=== PATIENT | female | born 1975 | race Caucasian/White ===

== ENCOUNTER → 2019-08-09 16:14 | Outpatient (CLI) | payer MEDICAID, SELFPAY ==
--- NOTE | 2019-08-09 16:43 | CT_ITS ---
STUDY: CT MAXILLOFACIAL SINUSES REASON FOR EXAM: Female, 43 years old. An ostomy up. Previous sinus surgery. RADIATION DOSAGE (If Supplied By Facility): CTDIvol = ( 33.06 ) mGy, DLP = ( 784.26 ) mGycm TECHNIQUE: The patient was scanned in a multi detector CT scanner. High resolution axial imaging was performed without the administration of intravenous contrast material. Sagittal and coronal images were reconstructed. Individualized dose optimization techniques were used for this CT. COMPARISON: None. FINDINGS: FRONTAL SINUSES: Left almost completely opacified secondary to mucosal thickening. Left frontal drainage pathway markedly narrowed by mucosal thickening. The right frontal sinus and right frontal sinus drainage pathway are both patent. ETHMOIDAL SINUSES: Mucosal thickening opacifies about half of the bilateral anterior and posterior ethmoid air cells. MAXILLARY SINUSES: Bilaterally, there is evidence of previous maxillary sinus medial antrostomy, with truncated appearance of the bilateral uncinate processes compatible with uncinectomy. Left: Moderate polypoid mucosal thickening left maxillary sinus with no air-fluid level on the left. The left maxillary sinus antrostomy is markedly narrowed due to mucosal thickening. Right: Moderate polypoid mucosal thickening and aerosolized secretions right maxillary sinus. The right maxillary sinus antrostomy is patent, mildly narrowed by mucosal thickening. SPHENOIDAL SINUSES: Polypoid mucosal thickening and aerosolized secretions left sphenoid sinus. Smaller in size right sphenoid sinus opacified by mucosal thickening. Bilaterally, the sphenoid-ethmoid recesses are narrowed by mucosal thickening but patent. The left hiatus semilunaris is narrowed due to mucosal thickening. The right is patent. Mild mucosal thickening of the middle and inferior bilateral nasal turbinates. The nasal septum is midline with evidence of previous septoplasty. Dehiscence versus chronic fracture of the right medial orbital wall/floor junction with orbital flat herniating through this defect. Left bony orbit is intact. Orbital contents otherwise unremarkable. Near complete opacification of the right mastoid air cells no apparent mass or obstructing lesion in the right fossa of Rosenmuller. Right middle ear, left mastoid air cells, and left middle ear patent. CT/Sinus/Facial Bone IMPRESSION: Acute on chronic pansinusitis described in detail above. 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 Near-complete opacification right mastoid air cells. Electronically Signed: Jaiden Colbert, at 23:48 EDT Tel , Service support ,
== END ==
PROVIDERS: Family Provider Nurse Practitioner Family; PCP Nurse Practitioner Family; Referring Provider Otolaryngology; Visit Provider Otolaryngology
DX: J33.9 Nasal polyp, unspecified (principal); R43.0 Anosmia
CPT/HCPCS: 70486

== ENCOUNTER 2025-10-06 11:37 | Emergency (ER) | payer SELFPAY ==
[2025-10-06 11:37] VITALS: BP 167/100; PULSE 77; RESP 16; TEMP 36.9; O2SAT 98; BMI 36.3
--- NOTE | 2025-10-06 12:13 | EX.ED.DYSGE1 ---
HPI History of Present Illness Chief Complaint: Ear Problem Narrative Narrative: Chief complaint and HPI: 50-year-old female with no significant past medical history other than allergies presents for evaluation of right ear pain. Patient states she is usually always congested due to her allergies. She states several days ago she started having right ear pain. She denies any fever, chills, cough, shortness of breath, discharge from the ear. Review of systems: See HPI Medications: As listed on the chart Allergies: As listed on the chart PFSH: Per chart Vital signs: As listed on the chart. Reviewed. Physical exam: Gen: Alert and oriented, NAD Head: Normocephalic, atraumatic Eyes: No sclera icterus, conjunctiva clear, PERRL ENT: EAC mildly swollen on the right compared to the left-no drainage or purulenc, Tympanic membrane on the right is erythematous and bulging, tympanic membrane on the left mildly erythematous, no mastoid tenderness or swelling, moist mucous membranes, posterior oropharynx unremarkable, uvula midline, tonsils not enlarged, no tonsillar exudates, no sinus tenderness. + Congestion. Neck: Trachea midline, Full ROM, No meningismus CV: RRR, no murmurs, no peripheral edema Resp: Lungs CTA BL, no w/r/c Skin: Warm, dry, no rash Psych: Cooperative, appropriate mood and affect [facility] Medical History no medical history Allergy/AdvReac Type Severity Reaction Status Date / Time Influenza Virus Vaccines Allergy Shortness Verified 10/06/25 11:39 of breath Social History Smoking Status: Never smoker EXAM Physical Exam Const Vital Signs: 10/06/25 11:37 Temperature 98.4 F Temperature Source Oral Pulse Rate 77 Respiratory Rate 16 Blood Pressure 167/100 H Blood Pressure Mean 122 Pulse Ox 98 Oxygen Delivery Method Room Air MDM MDM MDM Narrative Medical decision making narrative: 50-year-old female with no significant past medical history other than allergies presents for evaluation of right ear pain. Patient states she is usually always congested due to her allergies. She states several days ago she started having right ear pain. She denies any fever, chills, cough, shortness of breath, discharge from the ear. On presentation, vital stable other than hypertension, hypertension may be secondary to pain. Afebrile. Differential diagnosis includes but is not limited to otitis media, otitis externa, sinus congestion, sinusitis, eustachian tube dysfunction. See physical exam findings. Patient's exam is consistent with right otitis media. Her EAC on the right is mildly swollen compared to the left. May be early otitis externa as well. Patient will be treated for otitis media with amoxicillin. She is currently going to work after her visit here therefore we will give her first dose now. Will give her ofloxacin drop for possible externa. She confirmed understand the plan. Follow-up with primary care physician. Tylenol Motrin as needed for pain. Impression: 1. Right otitis media 2. Possible right otitis externa Discharge Plan Triage Chief Complaint: Ear Problem ED Provider: Frankie Del Real Dx/Rx/DC Orders Primary Care Provider: Joann Price NP Referrals: Joann Price NP, [employer] [Primary Care Provider, Family Practice] Print Language: [place]
[2025-10-06 12:35] VITALS: BP 158/89; PULSE 77; RESP 16; TEMP 36.9; O2SAT 98
--- OUTSIDE RECORDS SUMMARY | 2025-10-06 18:37 | XMS RPT_ITS | CCD ---
Author Organization [facility] Inform ion Partnership [facility] Care Team Providers Care Critical Care Clinical Nurse Specialist Name Role Phone FALTAY, MATHEW B Unavailable Unavailable FALTAY, MATHEW B Unavailable Unavailable FALTAY, MATHEW B Unavailable Unavailable BENNIE GONZALEZ Unavailable Unavailable BENNIE GONZALEZ Unavailable Unavailable BENNIE GONZALEZ Unavailable Unavailable FALTAY, MATHEW B Unavailable Unavailable FALTAY, MATHEW B Unavailable Unavailable FALTAY, MATHEW B Unavailable Unavailable BENNIE GONZALEZ Unavailable Unavailable BENNIE GONZALEZ Unavailable Unavailable BENNIE GONZALEZ Unavailable Unavailable PEDROSON [employer]ARD PANEL[employer] PLATER, JOANN Primary Care Physician LORSON [employer] PANEL[employer] PLATER, [place] Primary Care Physician ALBERT MULLINS-BEKAH, JOANN Attending Unavail able LORSON [employer]EL[employer] PLATER, [place] Primary Care Unavail able LORSON [employer] SE[employer]ARD PANELS PLATER, [place] Primary Care Unavail able LORSON [employer] SE[employer] PANELS PLATER, JOANN Attending Unavail able LORSON [employer] PANELS PLATER, [place] Primary [facility] [place] Unavail able LORSON [employer]EL[employer] PLATER, JOANN Attending Unavail able LIYAH BARNES MD Attending Unavailable LORSON [employer] SE[employer]EL[employer] PLATER, [place] Primary Care Unavail able LORSON [employer]EL[employer] PLATER, [place] Primary Care Unavail able LORSON [employer]EL[employer] PLATER, JOANN Attending Unavail able MASHA CANALES DO Attending Unavailable PEDROSON [employer] PANELS PLATER, [facility] Unavail able Albert Jo[facility] Care Unavailable Assessment, Health Risk Referring Unavaila ble Assessment, Health Risk Attending Unavaila ble Allergies Allergy Classification Reported Allergen(s) Allergy Type Date of Onset Reaction(s) Facility Angiotensin Converting Enzyme (DELMIS) Inhibitors (1 source) Lisinopril; Translations: [lisinopril] Drug Allergy Tickle sensation, function (observable entity) [facility] Comment on above: reaction: tickle in throat influenza A virus A/ (H1N1) antigen / influenza A virus A/ (H3N2) antigen / influenza B virus B/ antigen / influenza B virus B/ antigen (1 source) influenza A virus A/ (H1N1) antigen / influenza A virus A/ (H3N2) antigen / influenza B virus B/ antigen / influenza B virus B/ antigen; Translations: [influenza virus vaccine] Drug Allergy Swelling (finding), Dyspnea (finding) [facility] (2 sources) INFLUENZA VIRUS VACCINE TRIVALENT [id number]; Translations: [INFLUENZA VIRUS VACCINE TRIVALENT [id number]] Propensity to adverse reactions (disorder) 1 [facility] (1 source) INFLUENZA VIRUS VACC; Translations: [INFLUENZA VIRUS VACC] Propensity to adverse reactions (disorder) [facility] (13 sources) influenza A virus A/ (H1N1) antigen / influenza A virus A/ (H3N2) antigen / influenza B virus B/ antigen / influenza B virus B/ antigen; Translations: [influenza virus vaccine] Drug Allergy Swelling (finding), Dyspnea (finding) [facility] (13 sources) Lisinopril; Translations: [lisinopril] Drug Allergy Tickle sensation, function (observable entity) [facility] Comment on above: reaction: tickle in throat (14 sources) Animal Dander Allergy to substance Unknown [facility] (14 sources) Grass Allergy to substance Unknown [facility] (14 sources) Mites Allergy to substance Unknown [facility] Medications Current Medications Medication Drug Class(es) Dates Sig (Normalized) Sig (Original) Acidophilus Probiotic Blend oral capsule (9 sources) Start: 04-30-2022 take 1 capsule by mouth once daily Acidophilus Probiotic Blend oral capsule Dose = 1 cap(s), Oral, qDay, # 30 cap(s), 0 Refill(s), [id number], 149.5, cm, 04/30/22 7:53:00 EDT, Height Start Date: 04/30/22 Status: Ordered budesonide 0.5 mg/ml inhalation suspension (10 sources) Corticosteroid Start: 12-14-2020 budesonide 1 mg/2 mL inhalation suspension See Instructions, Rinse sinuses daily., 0 Refill(s) Start Date: 12/14/20 Status: Ordered Start: 12-14-2020 budesonide 1 m g/2 mL inhalation suspension See Instructions, Rinse sinuses daily., 0 Refill(s) Start Date: 12/14/20 Status: Ordered budesonide-formoterol 160 mcg-4.5 mcg/inh Inhaler (4 sources) Start: 05-03-2024 End: 04-28-2025 take 1 dose by inhalation twice daily budesonide-formoterol 160 mcg-4.5 mcg/inh Inhaler Dose = 2 puff(s), Inhalation, BID, # 3 EA, 3 Refill(s), [facility]acy: [id number], Severe persistent asthma, 151, cm, 05/03/24 7:45:00 EDT, Height, kg, 05/03/24 7:45:00 EDT, Dosing Weight Start Date: 05/03/24 Stop Date: 04/28/25 Status: Ordered Quantity: 3.0 Unit: EA Repeat number: 4 Indication: Severe persistent asthma, uncomplicated Start: 05-03-2024 End: 04-28-2025 take 1 dose by inhalation twice daily budesonide-formoterol 160 mcg-4.5 mcg/inh Inhaler Dose = 2 puff(s), Inhalation, BID, # 3 EA, 3 Refill(s), Pharmacy: [id number], Severe persistent asthma, 151, cm, 05/03/24 7:45:00 EDT, Height, kg, 05/03/24 7:45:00 EDT, Dosing Weight Start Date: 05/03/24 Stop Date: 04/28/25 Status: Ordered Start: 09-22-2023 End: 09-16-2024 take 1 dose by inhalation twice daily budesonide-formoterol 160 mcg-4.5 mcg/inh Inhaler Dose = 2 puff(s), Inhalation, BID, # 1 EA, 11 Refill(s), [id number], Severe persistent asthma, 149, cm, 09/22/23 16:01:00 EST, Height, kg, 09/22/23 16:01:00 EST, Dosing Weight Start Date: 09/22/23 Stop Date: 09/16/24 Status: Ordered busPIRone hydrochloride 5 mg oral tablet (9 sources) Start: 07-08-2022 busPIRone 5 mg oral tablet Dose : 5 mg = 1 tab(s), Oral, BID, # 60 tab(s), 1 Refill(s), [id number], 149.5, cm, 04/30/22 7:53:00 EDT, Height, kg, 06/18/22 16:27:00 EDT, Dosing Weight Start Date: 07/08/22 Status: Ordered Start: 05-29-2022 busPIRone 5 mg oral tablet Dose : 5 mg = 1 tab(s), Oral, BID, # 60 tab(s), 1 Refill(s), [id number], 149.5, cm, 04/30/22 7:53:00 EDT, Height, kg, 04/30/22 7:53:00 EDT, Dosing Weight Start Date: 05/29/22 Status: Ordered cetirizine hydrochloride 10 mg oral tablet (4 sources) Histamine-1 Receptor Antagonist Start: 11-19-2023 take 1 mg by mouth once daily Zyrtec 10 mg oral tablet mg = tab(s), Oral, qDay, 0 Refill(s) Start Date: 11/19/23 Status: Ordered Repeat number: 1 Collagen Skin Renewal (3 sources) Start: 02-04-2024 Collagen Skin Renewal Oral, qDay, 0 Refill(s) Start Date: 02/04/24 Status: Ordered Repeat number: 1 Start: 02-04-2024 Collagen Skin Renewal Oral, qDay, 0 Refill(s) Start Date: 02/04/24 Status: Ordered cyclobenzaprine hydrochloride 10 mg oral tablet (1 source) Muscle Relaxant Start: 06-18-2022 End: 06-23-2022 take 1 tablet by mouth three times daily as needed for muscle spasms Flexeril use cyclobenzaprine Dose : 10 mg =, Oral, TID, PRN Muscle spasm, X 5 day(s), # 15 tab(s), 0 Refill(s), 06/23/22 17:43:00 EDT, Muscle spasm of cervical muscle of neck Start Date: 06/18/22 Stop Date: 06/23/22 Status: Ordered doxycycline hyclate 100 mg oral tablet (1 source) Tetracycline-cla ss Drug Start: 07-29-2022 End: 08-05-2022 doxycycline hyclate 100 mg oral tablet Dose : 100 mg = 1 tab(s), PO, BID, may take with food to minimize abdominal discomfort, X 7 day(s), # 14 tab(s), 0 Refill(s), 08/05/22 17:50:00 EDT, Impetigo Hypertension, 75.5 Start Date: 07/29/22 Stop Date: 08/05/22 Status: Ordered Flovent HFA 110 mcg/inh inhalation aerosol (1 source) Start: 12-14-2020 take 1 puff(s) by inhalation twice daily Flovent HFA 110 mcg/inh inhalation aerosol 1 puff(s), Inhalation, BID, # 3 EA, 3 Refill(s), [id number], 147.5, cm, 12/14/20 8:21:00 EST, Height, kg, 12/14/20 8:21:00 EST, Dosing Weight Start Date: 12/14/20 Status: Ordered hydrocortisone 2.5% rectal cream with applicator (1 source) Start: 08-23-2021 End: 09-06-2021 hydrocortisone 2.5% rectal cream with applicator Apply 1 kiah, Rectal, BID, X 14 day(s), # 30 gram(s), 0 Refill(s), Pharmacy: [id number], 150, cm, 08/23/21 7:20:00 EDT, Height, 70.5, kg, 08/23/21 7:20:00 EDT, Dosing Weight Start Date: 08/23/21 Stop Date: 09/06/21 Status: Ordered losartan potassium 100 mg oral tablet (14 sources) Angiotensin 2 Receptor Romeo Start: 05-03-2024 End: 04-28-2025 losartan 100 mg oral tablet Dose : 100 mg = 1 tab(s), Oral, qDay, # 90 tab(s), 0 Refill(s), [id number], 149, cm, 05/10/24 10:34:00 EDT, Height, kg, 05/10/24 10:34:00 EDT, Dosing Weight Start Date: 12/06/24 Stop Date: 03/06/25 Status: Ordered Quantity: 90.0 Unit: tab(s) Repeat number: 1 Start: 08-05-2022 End: 12-11-2023 losartan 100 mg oral tablet Dose : 100 mg = 1 tab(s), Oral, qDay, # 90 tab(s), 3 Refill(s), [id number], 149.9, cm, 12/16/22 7:37:00 EST, Height, kg, 12/16/22 7:37:00 EST, Dosing Weight Start Date: 12/16/22 Stop Date: 12/11/23 Status: Ordered Start: 04-30-2022 losartan 100 m g oral tablet Dose : 100 mg = 1 tab(s), Oral, qDay, # 30 tab(s), 0 Refill(s), [id number], 149.5, cm, 04/30/22 7:53:00 EDT, Height Start Date: 04/30/22 Status: Ordered Start: 02-20-2021 End: 02-15-2022 losartan 50 mg oral tablet D ose : 50 mg = 1 tab(s), Oral, qDay, # 90 tab(s), 3 Refill(s), [id number], 147.3, cm, 02/20/21 11:11:00 EDT, Height, kg, 02/20/21 11:11:00 EDT, Dosing Weight Start Date: 02/20/21 Stop Date: 02/15/22 Status: Ordered meloxicam 15 mg oral tablet (12 sources) Nonsteroidal Anti-inflammatory Drug Start: 05-03-2024 meloxicam 15 mg o ral tablet Dose : 15 mg = 1 tab(s), Oral, qDay, # 90 tab(s), 3 Refill(s), [id number], 151, cm, 05/03/24 7:45:00 EDT, Height, kg, 05/03/24 7:45:00 EDT, Dosing Weight Start Date: 05/03/24 Status: Ordered Quantity: 90.0 Unit: tab(s) Repeat number: 4 Start: 03-11-2023 meloxicam 15 m g oral tablet Dose : 15 mg = 1 tab(s), Oral, qDay, # 90 tab(s), 3 Refill(s), [id number], 149.9, cm, 03/11/23 13:29:00 EDT, Height, kg, 03/11/23 13:29:00 EDT, Dosing Weight Start Date: 03/11/23 Status: Ordered Start: 06-12-2022 meloxicam 15 m g oral tablet Dose : 15 mg = 1 tab(s), Oral, qDay, # 90 tab(s), 3 Refill(s), [id number], 149.5, cm, 04/30/22 7:53:00 EDT, Height Start Date: 06/12/22 Status: Ordered Multivitamin preparation (3 sources) Start: 02-04-2024 take 1 tablet by mouth once daily Multivitamin Dose = 1 tab(s), Oral, Daily, 0 Refill(s) Start Date: 02/04/24 Status: Ordered Repeat number: 1 Start: 02-04-2024 take 1 tablet by leon th once daily Multivitamin Dose = 1 tab(s), Oral, Daily, 0 Refill(s) Start Date: 02/04/24 Status: Ordered mupirocin 0.02 mg/mg topical ointment (1 source) RNA Synthetase Inhibitor Antibacterial Start: 07-29-2022 End: 08-08-2022 mupirocin 2% topical ointment Apply 1 kiah, Topical, TID, # 22.5 gram(s), 0 Refill(s), 75.5 Start Date: 07/29/22 Stop Date: 08/08/22 Status: Ordered Completed/Discontinued Medications Medication Drug Class(es) Dates Sig (Normalized) Sig (Original) Albuterol (14 sources) beta2-Adrenergic Agonist Start: 05-03-2024 End: 06-02-2024 take 2 puff(s) by inhalation every four hours as needed for wheezing Ventolin HFA MDI (90 mcg/inh) inhalation aerosol 2 puff(s), Inhalation, q4h, PRN as needed for wheezing, # 1 EA, 0 Refill(s), Pharm[facility]: [id number], 151, cm, 05/03/24 7:45:00 EDT, Height, kg, 05/03/24 7:45:00 EDT, Dosing Weight Start Date: 05/03/24 Stop Date: 06/02/24 Status: Ordered Quantity: 1.0 Unit: EA Repeat number: 1 Start: 05-03-2024 End: 06-02-2024 take 2 puff(s) by inhalation every four hours as needed for wheezing Ventolin HFA MDI (90 mcg/inh) inhalation aerosol 2 puff(s), Inhalation, q4h, PRN as needed for wheezing, # 1 EA, 0 Refill(s), Pharmacy: [id number], 151, cm, 05/03/24 7:45:00 EDT, Height, kg, 05/03/24 7:45:00 EDT, Dosing Weight Start Date: 05/03/24 Stop Date: 06/02/24 Status: Ordered Start: 06-04-2023 End: 07-04-2023 take 2 puff(s) by inhalation every four hours as needed for wheezing Ventolin HFA MDI (90 mcg/inh) inhalation aerosol 2 puff(s), Inhalation, q4h, PRN as needed for wheezing, # 1 EA, 0 Refill(s), Pharmacy: [facility] #[id number], 149.9, cm, 06/04/23 7:01:00 EDT, Height, kg, 06/04/23 7:01:00 EDT, Dosing Weight Start Date: 06/04/23 Stop Date: 07/04/23 Status: Ordered Start: 04-30-2022 End: 06-29-2022 take 2 puff(s) by inhalation every four hours as needed for wheezing Ventolin HFA MDI (90 mcg/inh) inhalation aerosol 2 puff(s), Inhalation, q4h, PRN as needed for wheezing, # 1 EA, 1 Refill(s), [id number], 149.5, cm, 04/30/22 7:53:00 EDT, Height, kg, 04/30/22 7:53:00 EDT, Dosing Weight Start Date: 04/30/22 Stop Date: 06/29/22 Status: Ordered Start: 02-20-2021 End: 03-22-2021 take 2 puff(s) by inhalation every four hours as needed for wheezing Ventolin HFA MDI (90 mcg/inh) inhalation aerosol 2 puff(s), Inhalation, q4h, PRN as needed for wheezing, # 1 EA, 0 Refill(s), [id number], 147.3, cm, 02/20/21 11:11:00 EDT, Height, kg, 02/20/21 11:11:00 EDT, Dosing Weight Start Date: 02/20/21 Stop Date: 03/22/21 Status: Ordered Allergy Injection (7 sources) Start: 08-01-2022 Allergy Inject ion Allergy Injection, 0 Refill(s), 75.5 Start Date: 08/01/22 Status: Ordered Repeat number: 1 Start: 08-01-2022 Allergy Inject ion Allergy Injection, 0 Refill(s), 75.5 Start Date: 08/01/22 Status: Ordered chlorthalidone 25 mg oral tablet (8 sources) Thiazide-like Diuretic Start: 08-10-2020 End: 08-05-2021 chlorthalidone 25 mg oral tablet Dose : 25 mg = 1 tab(s), Oral, Daily, replacing the hctz, # 90 tab(s), 3 Refill(s), Pharm[facility]: [id number], 149.5, cm, 08/10/20 8:06:00 EDT, Height, kg, 08/10/20 8:06:00 EDT, Dosing Weight Start Date: 08/10/20 Stop Date: 08/05/21 Status: Ordered Flonase 50 mcg/inh nasal spray (1 source) Start: 05-01-2020 End: 04-26-2021 take 1 dose nasal route twice daily Flonase 50 mcg/inh nasal spray Dose = 1 spray(s), Nostril, each, BID, # 3 EA, 3 Refill(s), [id number], 149.8, cm, 05/01/20 7:27:00 EDT, Height, kg, 05/01/20 7:27:00 EDT, Dosing Weight Start Date: 05/01/20 Stop Date: 04/26/21 Status: Ordered fluticasone propionate 0.05 mg/actuat metered dose nasal spray (13 sources) Corticosteroid Start: 04-30-2022 End: 12-11-2023 take 1 dose nasal route twice daily Flonase 50 mcg/inh nasal spray Dose = 1 spray(s), Nostril, each, BID, # 3 EA, 3 Refill(s), [id number], 149.9, cm, 12/16/22 7:37:00 EST, Height, kg, 12/16/22 7:37:00 EST, Dosing Weight Start Date: 12/16/22 Stop Date: 12/11/23 Status: Ordered Quantity: 3.0 Unit: EA Repeat number: 4 montelukast 10 mg oral tablet (14 sources) Leukotriene Receptor Antagonist Start: 04-30-2022 End: 12-11-2023 Singulair 10 mg oral tablet Dose : 10 mg = 1 tab(s), Oral, qAM, # 90 tab(s), 3 Refill(s), [id number], 149.9, cm, 12/16/22 7:37:00 EST, Height, kg, 12/16/22 7:37:00 EST, Dosing Weight Start Date: 12/16/22 Stop Date: 12/11/23 Status: Ordered Quantity: 90.0 Unit: tab(s) Repeat number: 4 Start: 04-19-2021 End: 04-14-2022 Singulair 10 mg oral tablet Dose : 10 mg = 1 tab(s), Oral, qAM, # 90 tab(s), 3 Refill(s), [id number], 147.3, cm, 04/19/21 7:33:00 EDT, Height, kg, 04/19/21 7:33:00 EDT, Dosing Weight Start Date: 04/19/21 Stop Date: 04/14/22 Status: Ordered omeprazole 40 mg delayed release oral capsule (4 sources) Proton Pump Inhibitor Start: 05-03-2024 End: 08-01-2024 omeprazole 40 mg oral delayed release capsule Dose : 40 mg = 1 cap(s), Oral, qDay, # 90 cap(s), 0 Refill(s), Pharm[facility]: [facility] #[id number], 151, cm, 05/03/24 7:45:00 EDT, Height, kg, 05/03/24 7:45:00 EDT, Dosing Weight Start Date: 05/03/24 Stop Date: 08/01/24 Status: Ordered Quantity: 90.0 Unit: cap(s) Repeat number: 1 Start: 04-02-2023 omeprazole 40 mg oral delayed release capsule Dose : 40 mg = 1 cap(s), Oral, qDay, # 30 cap(s), 0 Refill(s) Start Date: 04/02/23 Status: Ordered Problems Active Problems Problem Classification Problem Date Documented Da te Episodic/Chronic Abdominal pain (8 sources) Left upper quadrant pain 07-09-2022 Episodic Allergic reactions (1 source) Urticaria 06-23-2023 Episodic Anal and rectal conditions (14 sources) Anal fissure 08-14-2020 Episodic Anxiety disorders (14 sources) Mixed anxiety and depressive disorder; Translations: [Generalized anxiety disorder] 12-14-2020 Chronic Asthma (20 sources) Acute exacerbation of asthma; Translations: [Moderate persistent asthma] 04-19-2021 Chronic Cancer of cervix (20 sources) High grade squamous intraepithelial lesion on cervical Papanicolaou smear; Translations: [Atypical squamous cells of undetermined significance on cervical Papanicolaou smear] Onset: 05-10-2024 12-07-2020 Episodic Chronic obstructive pulmonary disease and bronchiectasis (1 source) Bronchitis 11-19-2023 Episodic Diabetes mellitus without complication (8 sources) Hyperglycemia; Translations: [Impaired fasting glycemia] 08-05-2022 Episodic Disorders of lipid metabolism (7 sources) Hyperlipidemia 08-05-2022 Chronic Essential hypertension (20 sources) Hypertensive disorder; Translations: [Essential hypertension] Onset: 07-29-2022 02-18-2017 Chronic Hemorrhoids (14 sources) Hemorrhoids 08-23-2021 Episodic Menopausal disorders (14 sources) Premature menopause 12-07-2020 Chronic Mood disorders (4 sources) Moderate depression 06-04-2023 Chronic Nonspecific chest pain (1 source) Chest pain; Translations: [Chest pain, unspecified] Onset: 12-25-2024 Episodic Osteoarthritis (14 sources) Osteoarthritis 11-01-2020 Chronic Other connective tissue disease (1 source) Spasm; Translations: [Other muscle spasm] Onset: 06-18-2022 Episodic Other connective tissue disease (1 source) Tendinitis 12-16-2022 Episodic Other gastrointestinal disorders (13 sources) Urgent desire for stool 04-30-2022 Episodic Other inflammatory condition of skin (1 source) Itching of skin 03-11-2023 Episodic Other non-traumatic joint disorders (11 sources) Hip pain 02-20-2021 Episodic Other non-traumatic joint disorders (10 sources) Pain in wrist 04-30-2022 Episodic Other screening for suspected conditions (not mental disorders or infectious disease) (5 sources) Procedure carried out on subject; Translations: [Encounter for screening for lipoid disorders] Onset: 06-08-2022 Episodic Other skin disorders (11 sources) Mass of axilla 04-19-2021 Episodic Other skin disorders (10 sources) Eruption 04-30-2022 Episodic Other skin disorders (8 sources) Localized swelling of right upper limb 07-09-2022 Episodic Other upper respiratory disease (14 sources) Allergic rhinitis 05-01-2020 Chronic Other upper respiratory infections (2 sources) Acute recurrent maxillary sinusitis; Translations: [Acute upper respiratory infection] Onset: 08-20-2017 11-19-2023 Episodic Residual codes; unclassified (14 sources) At risk of sexually transmitted infection 08-23-2021 Episodic Residual codes; unclassified (7 sources) Insomnia 08-05-2022 Episodic Skin and subcutaneous tissue infections (1 source) Impetigo; Translations: [Impetigo, unspecified] Onset: 07-29-2022 Episodic Sprains and strains (1 source) Sprain of ankle; Translations: [Sprain of unspecified ligament of unspecified ankle, initial encounter] Onset: 09-21-2022 Episodic Unclassified (2 sources) Unknown / UNK(Unknown) Onset: 07-14-2017 Unclassified (1 source) Other specified postprocedural states; Translations: [Other specified postprocedural states] Onset: 11-12-2017 Unclassified (10 sources) dizzy, lightheaded( Confirmed ) Onset: 11-17-2008 02-16-2009 Unclassified (20 sources) Patient encounter status 06-08-2022 Unclassified (4 sources) dizzy, lightheaded Onset: 11-17-2008 02-16-2009 Viral infection (7 sources) Herpes simplex 08-05-2022 Episodic Past or Other Problems Problem Classification Problem Date Documented Da te Episodic/Chronic Unclassified (1 source) J01.01...MAXILLAR Y SINUSITIS Onset: 07-14-2017 Results Test Name Value Interpretation Reference Range Facility .Auto Diffon 12-25-2024 Basophil, Absolute 0.1 10 3/mcL Normal 0.0-0.2 [facility] Comment on above: Performed By: #### C LULY ARCHULETA MDW, LIP, ANEU, CMP, GFR #### [address] [address] Basophils/100 WBC (Bld) 0.6 % Normal 0.0-2.5 [facility] Comment on above: Performed By: #### C LULY ARCHULETA MDW, LIP, ANEU, CMP, GFR #### [address] [address] Eosinophil, Absolute 0.4 10 3/mcL Normal 0.0-0.7 [facility] Comment on above: Performed By: #### C LULY ARCHULETA MDW, LIP, ANEU, CMP, GFR #### [address] [address] Eosinophils/100 WBC (Bld) 4.1 % Normal 0.0-7.0 [facility] Comment on above: Performed By: #### C LULY ARCHULETA MDW, LIP, ANEU, CMP, GFR #### [address] [address] Lymphocyte, Absolute 3.8 10 3/mcL Normal 0.9-4.3 [facility] Comment on above: Performed By: #### C LULY ARCHULETA, W, LIP, ANEU, CMP, GFR #### [address] [address] Lymphocytes/100 WBC (Bld) 41.9 % High 20.0-40.0 [facility] Comment on above: Performed By: #### C BC, LULY, MDW, LIP, ANEU, CMP, GFR #### [address] [address] Monocyte, Absolute 0.8 10 3/mcL Normal 0.1-1.4 [facility] Comment on above: Performed By: #### C GEREMIAS, LULY, W, LIP, ANEU, CMP, GFR #### [address] [address] Monocytes/100 WBC (Bld) 9.1 % Normal 2.0-13.0 [facility] Comment on above: Performed By: #### C GEREMIAS, LULY, W, LIP, ANEU, CMP, GFR #### [address] [address] Neutrophils/100 WBC (Bld) 44.3 % Low 50.0-75.0 [facility] Comment on above: Performed By: #### C GEREMIAS, LULY, W, LIP, ANEU, CMP, GFR #### [address] [address] .GFRon 12-25-2024 Estimated Glomerular Filtration Rate 78 ml/min/1.73sqm Normal [facility] Comment on above: Result Comment: Stages of Chronic Kidney Disease (CKD) Stage Description eGFR(ml/min/1.73 sq.m.) CKD 1 Normal kidney function or >=90 normal kindney function with possible kidney damage (ex. Proteinuria) CKD 2 Kidney damage with mild loss 60-89 of kidney function CKD 3a Mild to moderate loss of kidney 45-59 function CKD 3b Moderate to severe loss of 30-44 of kindey function CKD 4 Severe loss of kidney function 15-29 CKD 5 Kidney failure <15 Note: (go live 2024) the eGFR calculation was updated to the 2020 CKD-EPI creatinine equation without a race factor to calculate the eGFR results. Performed By: #### U AMICAO, UA, PREGU #### [place] [address] .MDWon 12-25-2024 Monocyte Distribution Width 16.78 Normal 0.00-20.00 [facility] Comment on above: Result Comment: For ED adult patients suspected of sepsis, MDW<=20.0 does not rule out sepsis or risk of sepsis Performed By: #### C LULY ARCHULETA MDW, LIP, ANEU, CMP, GFR #### [place] [address] .NEUABSon 12-25-2024 Neutrophil, Absolute 4.0 10 3/mcL Normal 2.3-8.1 [facility] Comment on above: Performed By: #### C LULY ARCHULETA MDW, LIP, ANEU, CMP, GFR #### [place] [address] .Urinalysis Microscopic (AO) on 12-25-2024 UA Mucous 2+ /hpf Normal [facility] Comment on above: Performed By: #### U AMICAO, UA, PREGU #### [place] [address] UA RBC 0-5 Abnormal None Seen [facility] Comment on above: Performed By: #### U AMICAO, UA, PREGU #### [place] [address] UA Squam Epithelial 0-5 Abnormal None Seen [facility] Comment on above: Performed By: #### U AMICAO, UA, PREGU #### [place] [address] UA WBC 0-5 Abnormal None Seen [facility] Comment on above: Performed By: #### U AMICAO, UA, PREGU #### [place] [address] CBCon 12-25-2024 Erythrocyte distribution width (RBC) [Ratio] 13.3 % Normal 11.5-15.5 [facility] Comment on above: Performed By: #### C BC, LULY, MDW, LIP, ANEU, CMP, GFR #### [address] [address] Hematocrit (Bld) [Volume fraction] 41.0 % Normal 34.0-46.0 [facility] Comment on above: Performed By: #### C BC, ADEVON, MDW, LIP, ANEU, CMP, GFR #### [address] [address] Hgb 13.9 G/dL Normal 12.0-16.0 [facility] Comment on above: Performed By: #### C BC, LULY, MDW, LIP, ANEU, CMP, GFR #### [place] [id number] MCH (RBC) [Entitic mass] 29.1 pg Normal 27.0-33.0 [facility] Comment on above: Performed By: #### C BC, LULY, MDW, LIP, ANEU, CMP, GFR #### [address] [address] MCHC 34.0 G/dL Normal 32.0-36.0 [facility] Comment on above: Performed By: #### C BC, ADEVON, MDW, LIP, ANEU, CMP, GFR #### [address] [address] MCV (RBC) [Entitic vol] 85.6 fL Normal 80.0-99.0 [facility] Comment on above: Performed By: #### C BC, LULY, MDW, LIP, ANEU, CMP, GFR #### [address] [address] Platelet 263 10 3/mcL Normal 150-450 [facility] Comment on above: Performed By: #### C BC, ADEVON, MDW, LIP, ANEU, CMP, GFR #### [address] [address] Platelet mean volume (Bld) [Entitic vol] 9.0 fL Normal 6.6-10.5 [facility] Comment on above: Performed By: #### C BC, LULY, W, LIP, ANEU, CMP, GFR #### [address] [address] RBC 4.78 10 6/mcL Normal 4.10-5.30 [facility] Comment on above: Performed By: #### C BC, LULY, W, LIP, ANEU, CMP, GFR #### [address] [address] WBC 9.0 10 3/mcL Normal 4.5-10.8 [facility] Comment on above: Performed By: #### C GEREMIAS, LULY, W, LIP, ANEU, CMP, GFR #### [address] [address] CMPon 12-25-2024 Albumin Level 4.1 G/dL Normal 3.5-5.0 [facility] Comment on above: Performed By: #### C GEREMIAS, LULY, W, LIP, ANEU, CMP, GFR #### [address] [address] Albumin/Globulin [Mass ratio] 1.2 {ratio} Normal 1.1-2.5 [facility] Comment on above: Performed By: #### C GEREMIAS, LULY, W, LIP, ANEU, CMP, GFR #### [address] [address] ALP [Catalytic activity/Vol] 89 U/L Normal 40-135 [facility] Comment on above: Performed By: #### C GEREMIAS, LULY, W, LIP, ANEU, CMP, GFR #### [address] [address] ALT [Catalytic activity/Vol] 43 U/L Normal 14-59 [facility] Comment on above: Performed By: #### C BC, LULY, MDW, LIP, ANEU, CMP, GFR #### [address] [address] AST [Catalytic activity/Vol] 16 U/L Normal 10-40 [facility] Comment on above: Performed By: #### C LULY ARCHULETA MDW, LIP, ANEU, CMP, GFR #### [address] [address] Bili Total 0.8 mg/dL Normal 0.2-1.0 [facility] Comment on above: Result Comment: Use of this assay is not recommended for patients undergoing treatment with eltrombopag due to the potential for falsely elevated results. Performed By: #### C GEREMIAS, TOM MAURICIO, LIP, ANEU, CMP, GFR #### [address] [address] BUN/Creatinine Ratio 19 ratio Normal 7-27 [facility] Comment on above: Performed By: #### C LULY ARCHULETA MDW, LIP, ANEU, CMP, GFR #### [address] [address] Calcium [Mass/Vol] 9.3 mg/dL Normal 8.4-10.2 [facility] Comment on above: Performed By: #### C LULY ARCHULETA MDW, LIP, ANEU, CMP, GFR #### [address] [address] Chloride [Moles/Vol] 103 mmol/L Normal 98-107 [facility] Comment on above: Performed By: #### C GEREMIAS, TOM MAURICIO, LIP, ANEU, CMP, GFR #### [address] [address] CO2 [Moles/Vol] 31 mmol/L High 22-29 [facility] Comment on above: Performed By: #### C LULY ARCHULETA MDW, LIP, ANEU, CMP, GFR #### [address] [address] Creatinine [Mass/Vol] 0.91 mg/dL Normal 0.55-1.02 [facility] Comment on above: Result Comment: Test ing performed on Siemens Dimension EXL analyzer using a modified kinetic Todd technique. Performed By: #### C LULY ARCHULETA MDW, LIP, ANEU, CMP, GFR #### [address] [address] Electrolyte Balance 8.0 mEq/L Normal 4.0-15.0 [facility] Comment on above: Performed By: #### C GEREMIAS, TOM MAURICIO, LIP, ANEU, CMP, GFR #### [address] [address] Globulin 3.4 G/dL Normal 1.5-3.8 [facility] Comment on above: Performed By: #### C LULY ARCHULETA MDW, LIP, ANEU, CMP, GFR #### [place] [id number] Glucose [Mass/Vol] 110 mg/dL High 70-105 [facility] Comment on above: Performed By: #### C LULY ARCHULETA MDW, LIP, ANEU, CMP, GFR #### [address] [address] Potassium [Moles/Vol] 3.8 mmol/L Normal 3.5-5.1 [facility] Comment on above: Performed By: #### C LULY ARCHULETA MDW, LIP, ANEU, CMP, GFR #### [address] [address] Sodium [Moles/Vol] 142 mmol/L Normal 136-145 [facility] Comment on above: Performed By: #### C LULY ARCHULETA MDW, LIP, ANEU, CMP, GFR #### [address] [address] Total Protein 7.5 G/dL Normal 6.4-8.2 [facility] Comment on above: Performed By: #### C LULY ARCHULETA MDW, LIP, ANEU, CMP, GFR #### [address] [address] Urea nitrogen [Mass/Vol] 17 mg/dL Normal 7-18 [facility] Comment on above: Performed By: #### C LULY ARCHULETA MDW, LIP, ANEU, CMP, GFR #### [place] [address] [place], [place] [address] LABORATORYOrdered By: SYSTEM SYSTEM on 12-25-2024 Troponin I.cardiac DL <= 0.01 ng/mL [Mass/Vol] 5 ng/L Normal 0 - 51 ng/L AO ADM SS Comment on above: Interpretive Data: H igh Sensitive Troponin I Reference Ranges: Female: 0-51 ng/L Male: 0-76 ng/L Testing performed on [employer] using a homogeneous sandwich chemiluminescent immunoassay based on Xanic technology. Albumin BCP dye [Mass/Vol] 4.1 G/dL Normal 3.5 - 5.0 G/dL AO ADM SS Albumin/Globulin [Mass ratio] 1.2 {ratio} Normal 1.1 - 2.5 ratio AO ADM SS ALP [Catalytic activity/Vol] 89 U/L Normal 40 - 135 U/L AO ADM SS ALT With P-5'-P [Catalytic activity/Vol] 43 U/L Normal 14 - 59 U/L AO ADM SS AST With P-5'-P [Catalytic activity/Vol] 16 U/L Normal 10 - 40 U/L AO ADM SS Basophils (Bld) [#/Vol] 0.1 103/mcL Normal 0.0 - 0.2 10^3/mcL AO Workflow SS Basophils/100 WBC (Bld) 0.6 % Normal 0.0 - 2.5 % AO Workflow SS Bilirubin [Mass/Vol] 0.8 mg/dL Normal 0.2 - 1 .0 mg/dL AO ADM SS Comment on above: Interpretive Data: U se of this assay is not recommended for patients undergoing treatment with eltrombopag due to the potential for falsely elevated results. Calcium [Mass/Vol] 9.3 mg/dL Normal 8.4 - 10. 2 mg/dL AO ADM SS Chloride [Moles/Vol] 103 mmol/L Normal 98 - 10 7 mmol/L AO ADM SS CO2 [Moles/Vol] 31 mmol/L High 22 - 29 mmol/L AO ADM SS Creatinine [Mass/Vol] 0.91 mg/dL Normal 0.55 - 1.02 mg/dL AO ADM SS Comment on above: Interpretive Data: T esting performed on [employer] Dimension EXL analyzer using a modified kinetic Todd technique. Electrolyte Balance 8.0 mEq/L Normal 4.0 - 15 .0 mEq/L AO ADM SS Eosinophil, Absolute 0.4 103/mcL Normal 0.0 - 0 .7 10^3/mcL AO Workflow SS Eosinophils/100 WBC (Bld) 4.1 % Normal 0.0 - 7.0 % AO Workflow SS Erythrocyte distribution width (RBC) [Ratio] 13.3 % Normal 11.5 - 15.5 % AO Workflow SS Estimated Glomerular Filtration Rate 78 ml/min/1.73sqm Invalid Interpretation Code AO Chemistry S Comment on above: Interpretive Data: Stages of Chronic Kidney Disease (CKD) Stage Description eGFR(ml/min/1.73 sq.m.) CKD 1 Normal kidney function or >=90 normal kindney function with possible kidney damage (ex. Proteinuria) CKD 2 Kidney damage with mild loss 60-89 of kidney function CKD 3a Mild to moderate loss of kidney 45-59 function CKD 3b Moderate to severe loss of 30-44 of kindey function CKD 4 Severe loss of kidney function 15-29 CKD 5 Kidney failure <15 Note: (go live 2024) the eGFR calculation was updated to the 2020 CKD-EPI creatinine equation without a race factor to calculate the eGFR results. Globulin 3.4 G/dL Normal 1.5 - 3.8 G/dL AO ADM SS Glucose [Mass/Vol] 110 mg/dL High 70 - 105 mg/dL AO ADM SS Hematocrit (Bld) [Volume fraction] 41.0 % Normal 34.0 - 46.0 % AO Workflow SS Hemoglobin (Bld) [Mass/Vol] 13.9 G/dL Normal 12.0 - 16.0 G/dL AO Workflow SS Lipase [Catalytic activity/Vol] 48 U/L Normal 16 - 77 U/L AO ADM SS Lymphocytes (Bld) [#/Vol] 3.8 103/mcL Normal 0.9 - 4.3 10^3/mcL AO Workflow SS Lymphocytes/100 WBC (Bld) 41.9 % High 20.0 - 40.0 % AO Workflow SS MCH (RBC) [Entitic mass] 29.1 pg Normal 27.0 - 33.0 pg AO Workflow SS MCHC 34.0 G/dL Normal 32.0 - 36.0 G/dL AO Workflow SS MCV (RBC) [Entitic vol] 85.6 fL Normal 80.0 - 99.0 fL AO Workflow SS Monocyte distribution width Auto (Bld) [Entitic vol] 16.78 1 Normal 0.00 - 20.00 AO Workflow SS Comment on above: Result Comment: For ED adult patients suspected of sepsis, MDW<=20.0 does not rule out sepsis or risk of sepsis Monocytes (Bld) [#/Vol] 0.8 103/mcL Normal 0.1 - 1.4 10^3/mcL AO Workflow SS Monocytes/100 WBC (Bld) 9.1 % Normal 2.0 - 13.0 % AO Workflow SS Neutrophils (Bld) [#/Vol] 4.0 103/mcL Normal 2.3 - 8.1 10^3/mcL AO Workflow SS Neutrophils/100 WBC (Bld) 44.3 % Low 50.0 - 75.0 % AO Workflow SS Platelet mean volume (Bld) [Entitic vol] 9.0 fL Normal 6.6 - 10.5 fL AO Workflow SS Platelets (Bld) [#/Vol] 263 103/mcL Normal 150 - 450 10^3/mcL AO Workflow SS Potassium [Moles/Vol] 3.8 mmol/L Normal 3.5 - 5.1 mmol/L AO ADM SS Protein [Mass/Vol] 7.5 G/dL Normal 6.4 - 8.2 G/dL AO ADM SS RBC (Bld) [#/Vol] 4.78 106/mcL Normal 4.10 - 5.3 0 10^6/mcL AO Workflow SS Sodium [Moles/Vol] 142 mmol/L Normal 136 - 145 mmol/L AO ADM SS Urea nitrogen [Mass/Vol] 17 mg/dL Normal 7 - 18 mg/dL AO ADM SS Urea nitrogen/Creatinine [Mass ratio] 19 ratio Normal 7 - 27 ratio AO ADM SS WBC (Bld) [#/Vol] 9.0 103/mcL Normal 4.5 - 10.8 10^3/mcL AO Workflow SS LABORATORYOrdered By: Nadeem Rodriguez on 12-25-2024 Appearance (U) Clear (12/25/24 8:56 PM) Normal Clear AO Auto Urine SS Bilirubin Ql (U) Negative (12/25/24 8:56 PM) Normal Negative AO Auto Urine SS Color (U) Yellow (12/25/24 8:56 PM) Normal AO Auto Urine SS Glucose Test strip (U) [Mass/Vol] Negative Normal Negative AO Auto Urine SS HCG ( test) Ql Negative (12/25/24 8:56 PM) Normal AO Manual Urine SS Hemoglobin Auto test strip (U) [Mass/Vol] Trace *ABN* (12/25/24 8:56 PM) Invalid Interpretation Code Negative AO Auto Urine SS Ketones Ql (U) Negative Normal Negative AO Auto Urine SS test (u) int Not detected Invalid Interpretation Code AO Manual Urine SS UA Leuk Est Trace *ABN* (12/25/24 8:56 PM) Invalid Interpretation Code Negative AO Auto Urine SS UA Mucous 2+ /HPF Normal AO Auto Urine SS UA Nitrite Negative (12/25/24 8:56 PM) Normal Negative AO Auto Urine SS UA pH 6.0 (12/25/24 8:56 PM) Normal 5.0 - 8.0 AO Auto Urine SS UA Protein Negative Normal Negative AO Auto Urine SS UA RBC 0-5 /HPF Invalid Interpretation Code None Seen AO Auto Urine SS UA Spec Grav >=1.030 *ABN* (12/25/24 8:56 PM) Invalid Interpretation Code 1.015-1.025 AO Auto Urine SS UA Specimen Type Clean Catch (12/25/24 8:56 PM) Normal AO Auto Urine SS UA Squam Epithelial 0-5 /HPF Invalid Interpretation Code None Seen AO Auto Urine SS UA Urobilinogen 0.2 E.U./dL Normal 0.2-1.0 AO Auto Urine SS WBC LM.HPF (Urine sed) [#/Area] 0-5 /HPF Invalid Interpretation Code None Seen AO Auto Urine SS LIPon 12-25-2024 Lipase Level 48 U/L Normal 16-77 [facility] Comment on above: Performed By: #### C LULY ARCHULETA MDW, LIP, ANEU, CMP, GFR #### [place] [address] [place], [place] [address] PREGUon 12-25-2024 HCG ( test) Ql (U) Negative Normal [facility] Comment on above: Performed By: #### U AMICAO, UA, PREGU #### [place] [address] [place], [place] [address] test (u) int Not detected Invalid Interpretation Code [facility] Comment on above: Performed By: #### U AMICAO, UA, PREGU #### [address] [address] TROPHSon 12-25-2024 High Sensitivity Troponin I 5 ng/L Normal 0-51 [facility] Comment on above: Result Comment: High Sensitive Troponin I Reference Ranges: Female: 0-51 ng/L Male: 0-76 ng/L Testing performed on [employer] EX[employer] using a homogeneous sandwich chemiluminescent immunoassay based on [employer] technology. Performed By: #### U AMICAO, UA, PREGU #### [place] [phone] UAon 12-25-2024 Color (U) Yellow Normal [facility] Comment on above: Performed By: #### U AMICAO, UA, PREGU #### [place] [address] Glucose (U) [Mass/Vol] Negative Normal Negative [facility] Comment on above: Performed By: #### U AMICAO, UA, PREGU #### [place] [address] Ketones Ql (U) Negative Normal Negative [facility] Comment on above: Performed By: #### U AMICAO, UA, PREGU #### [place] [address] UA Appear Clear Normal Clear [facility] Comment on above: Performed By: #### U AMICAO, UA, PREGU #### [place] [address] UA Blood Trace Abnormal Negative [facility] Comment on above: Performed By: #### U AMICAO, UA, PREGU #### [address] [address] UA Leuk Est Trace Abnormal Negative [facility] Comment on above: Performed By: #### U AMICAO, UA, PREGU #### [place] [address] UA Nitrite Negative Normal Negative [facility] Comment on above: Performed By: #### U AMICAO, UA, PREGU #### [place] [address] UA pH 6.0 Normal 5.0 - 8.0 [facility] Comment on above: Performed By: #### U AMICAO, UA, PREGU #### [place] [address] UA Protein Negative Normal Negative [facility] Comment on above: Performed By: #### U AMICAO, UA, PREGU #### [place] [address] UA Spec Grav >=1.030 Abnormal 1.015-1.025 [facility] Comment on above: Performed By: #### U AMICAO, UA, PREGU #### [place] [address] UA Specimen Type Clean Catch Normal [facility] Comment on above: Performed By: #### U AMICAO, UA, PREGU #### [place] [address] UA Urobilinogen 0.2 E.U./dL Normal 0.2-1.0 [facility] Comment on above: Performed By: #### U AMICAO, UA, PREGU #### [place] [address] Urobilinogen (U) [Mass/Vol] Negative Normal Negative [facility] Comment on above: Performed By: #### U AMICAO, UA, PREGU #### [place] [address] XR CHEST 1 VIEWon 12-25-2024 XR CHEST 1 VIEW ORIGINAL EXAMINATION: ONE XRAY VIEW OF THE CHEST12/25/2024 9:19 pm COMPARISON: 05/09/2023 HISTORY: ORDERING SYSTEM PROVIDED HISTORY: Reason for Exam: chest pain FINDINGS: Cardiomediastinal contours are within normal limits. No focal consolidation or pulmonary edema. No pleural effusion or visible pneumothorax. The bony thorax appears intact. IMPRESSION: No acute radiographic findings. I have personally reviewed the images of this examination and agree with the resident's findings and interpretation. Interpreted by: Colton Arroyo Preliminary Report By: Basim Sadler Electronically signed By Colton Arroyo Dictated Date: 12/25/2024 9:24:29 PM Prelim Date: 12/25/2024 9:26:17 PM Sign Date: 12/25/2024 9:31:52 PM Ordering Provider: MASHA Kim [facility] Frothing Machine Operator Cytology Reporton 2023 Frothing Machine Operator Cytology Report . Pathology Reports Accession: Collected Date/Time: Received Date/Time: Pathologist: [id number] 05/10/2024 11:38 EDT 05/10/2024 18:00 EDT CALDERON EPPERSON MD Frothing Machine Operator Cytology Report SPECIMEN: Specimen Description: Liquid Prep w/ HPV Specimen: Cervical/Endocervical Screening or Diagnostic: Screening RELEVANT HISTORY: LMP: 2015 Post Menopausal: Yes Other clinical information: hx of ascus +HR HPV SPECIMEN ADEQUACY: SATISFACTORY FOR EVALUATION Endocervical/Transformation al zone component present INTERPRETATION/RESULTS: EPITHELIAL CELL ABNORMALITIES, SQUAMOUS Atypical squamous cells of undetermined significance (ASC-US) HIGH RISK HPV TESTING: Event Code Result HPV Interp See Interp HPVO * HPV Interp Text: High Risk HPV Typing is Positive : High Risk HPV Types detected, other than HPV 16 or HPV 18. Specimen is positive for the DNA of any one of, or combination of, the following high risk HPV types: 31, 33, 35, 39, 45, 51, 52, 56, 58, 59, 66, 68. HPV types 16 and 18 DNA were undetectable or below the pre-set threshold. The ines High-Risk HPV DNA Test is not intended for use as a screening device for Pap normal women under age 30 and is not intended to substitute for regular Pap screening. The ines High-Risk HPV DNA Test is designed to augment existing methods for the detection of cervical disease and should be used in conjunction with clinical information derived from other diagnostic and screening tests, physical examinations and full medical history in accordance with appropriate patient management procedures. NOTE: A negative result does not preclude the presence of HPV infection because results depend on adequate specimen collection, absence of inhibitors and sufficient DNA to be detected. As of: 05/14/24 10:08 EDT COMMENT: This Pap Test was successfully processed and evaluated with the assistance of the [employer] Test Imaging System. Pathology Reports Accession: Collected Date/Time: Received Date/Time: Pathologist: [id number] 05/10/2024 11:38 EDT 05/10/2024 18:00 EDT CALDERON EPPERSON MD Electronically Signed by Pathology report verified by [facility] Screened by: BETHANY DW Electronically signed by CALDERON EPPERSON Sign-Out Date: 05/17/2024 14:03 Performing Lab: [facility], [address] [place] [address] Pathology Dept Disclaimer The Pap test is a screening test for cervical cancer. As evidenced by published data, it is subject to both inherent false negative and false positive results. Your patient's results should be interpreted in context with pertinent clinical history including gynecological examination. Normal [facility] [place] HPVon 05-13-2024 HPV Interp Abnormal See Interp HPVN [facility] [place] Comment on above: Order Comment: Order placed by AP_HPV_ORDER rule from [id number] Result Comment: High Risk HPV Typing is Positive: High Risk HPV Types detected, other than HPV 16 or HPV 18. Specimen is positive for the DNA of any one of, or combination of, the following high risk HPV types: 31, 33, 35, 39, 45, 51, 52, 56, 58, 59, 66, 68. HPV types 16 and 18 DNA were undetectable or below the pre-set threshold. The ines High-Risk HPV DNA Test is not intended for use as a screening device for Pap normal women under age 30 and is not intended to substitute for regular Pap screening. The ines High-Risk HPV DNA Test is designed to augment existing methods for the detection of cervical disease and should be used in conjunction with clinical information derived from other diagnostic and screening tests, physical examinations and full medical history in accordance with appropriate patient management procedures. NOTE: A negative result does not preclude the presence of HPV infection because results depend on adequate specimen collection, absence of inhibitors and sufficient DNA to be detected. See Inter HPVO Performed By: #### H PV #### [address] [address] HPV Source Cervix Normal [facility] ([place] Comment on above: Order Comment: Order placed by AP_HPV_ORDER rule from [id number] Performed By: #### H PV #### [facility] [address] [place] [id number] LABORATORYOrdered By: Allen Warner on 05-10-2024 HPV Interp High Risk HPV Typing is Positive: High Risk HPV Typesdetected, other than HPV 16 or HPV 18.Specimen is positive for the DNA of any one of, or combination of, the following high risk HPVtypes: 31, 33, 35, 39, 45, 51, 52, 56, 58, 59, 66, 68.HPV types 16 and 18 DNA were undetectable or below the pre-set threshold.The ines High-Risk HPV DNA Test is not intended for use as a screening device for Papnormal women under age 30 and is not intended to substitute for regular Pap screening.The ines High-Risk HPV DNA Test is designed to augment existing methods for the detectionof cervical disease and should be used in conjunction with clinical information derived from otherdiagnostic and screening tests, physical examinations and full medical history in accordance withappropriate patient management procedures.NOTE: A negative result does not preclude the presence of HPV infection because results dependon adequate specimen collection, absence of inhibitors and sufficient DNA to be detected. Invalid Interpretation Code See Interp HPVN AH Auto Viro/Sero SS Specimen source Nom (Unsp spec) Cervix (05/10/24 11:38 AM) Normal AH Auto Viro/Sero SS MA MAMMOGRAM SCREENING BILAT ERAL W/TOMOon 05-07-2024 MA MAMMOGRAM SCREENING BILATERAL W/ROGELIO ORIGINAL FROM: [facility] [address] [place], [place] [address] PROCEDURE FOR: ALKA YOUNG [address] [place] [id number] Home: PID#: [id number] Exam#: [id number] : 1975 Age: 48 TO: JOANN MCNEIL [employer] [address] [place], [place] [address] Fax: NO FAX EXAMINATION: SCREENING DIGITAL BILATERAL MAMMOGRAM WITH TOMOSYNTHESIS, 05/07/2024 8:00 am TECHNIQUE: Screening mammography of the bilateral breasts was performed with tomosynthesis. 2D standard and 3D tomosynthesis combination imaging performed through both breasts in the MLO and CC projection. Computer aided detection was utilized in the interpretation of this exam. COMPARISON: 07/26/2022, 02/26/2021 HISTORY: Breast cancer screening. FINDINGS: BREAST DENSITY: There are scattered areas of fibroglandular density. Bilateral breast implants are stable. There are benign calcifications in the left breast. There are no significant masses or calcifications. IMPRESSION: No mammographic evidence of malignancy. Continued screening with annual mammograms is recommended. Pee zi risk calculations, generated with the history provided, report this patient's 10 year risk and lifetime risk for developing breast cancer at 1.1% and 5.7%, respectively. Based on this assessment tool, if the patient's calculated lifetime risk is below 20%, then the patient is considered at average risk for developing breast cancer. If the patient's calculated lifetime risk is at or above 20%, then the patient is considered high risk for developing breast cancer and may be a candidate for supplemental breast MRI screening in addition to annual mammographic screening per the [employer]. BIRADS: BI-RADS: 2: Benign RECALL: 1 year screening RECALL TYPE: mammo LETTER SENT: Normal BI-RADS 1 and 2 Interpreted by: Liyah Burgos MD Preliminary Report By: Liyah Burgos MD Electronically signed By Liyah Burgos MD Dictated Date: 05/07/2024 2:32:52 PM Prelim Date: 05/07/2024 3:16:32 PM Sign Date: 05/07/2024 3:16:32 PM Ordering Provider: JOANN MCNEIL Petroleum Inspector Supervisor: MAKAYLA HERNANDEZ RT(R) RDMS letter sent: Normal BI-RADS 1 and 2 Mammogram BI-RADS: 2 Benign Normal [facility] [place] .GFRon 01-15-2024 GFR 88 ml/min/1.73sqm Normal [facility] [place] Comment on above: Result Comment: GFR Population mean for , Non- Americans Ages 20-29 = 116 mL/min/1.73 sq.m. Ages 30-39 = 107 mL/min/1.73 sq.m. Ages 40-49 = 99 mL/min/1.73 sq.m. Ages 50-59 = 93 mL/min/1.73 sq.m. Ages 60-69 = 85 mL/min/1.73 sq.m. Ages 70+ = 75 mL/min/1.73 sq.m. Chronic Kidney Disease: Less than 60 mL/min/1.73 square meters End Stage Renal Disease: Less than 15 mL/min/1.73 square meters Performed By: #### C MP, GFR, LIPID #### [address] [address] GFR Non- 73 ml/min/1.73sqm Normal [facility] ([place]) Comment on above: Result Comment: GFR Population mean for , Non- Americans Ages 20-29 = 116 mL/min/1.73 sq.m. Ages 30-39 = 107 mL/min/1.73 sq.m. Ages 40-49 = 99 mL/min/1.73 sq.m. Ages 50-59 = 93 mL/min/1.73 sq.m. Ages 60-69 = 85 mL/min/1.73 sq.m. Ages 70+ = 75 mL/min/1.73 sq.m. Chronic Kidney Disease: Less than 60 mL/min/1.73 square meters End Stage Renal Disease: Less than 15 mL/min/1.73 square meters Performed By: #### C MP, GFR, LIPID #### [address] [address] CMPon 01-15-2024 Albumin Level 3.8 G/dL Normal 3.5-5.0 [facility] ([place]) Comment on above: Performed By: #### C MP, GFR, LIPID #### [address] [address] Albumin/Globulin [Mass ratio] 1.1 {ratio} Normal 1.1-2.5 [facility] ([place]) Comment on above: Performed By: #### C MP, GFR, LIPID #### [address] [address] ALP [Catalytic activity/Vol] 70 U/L Normal 40-135 [facility] ([place] Comment on above: Performed By: #### C MP, GFR, LIPID #### [address] [address] ALT [Catalytic activity/Vol] 38 U/L Normal 14-59 [facility] ([place] Comment on above: Performed By: #### C MP, GFR, LIPID #### [address] [address] AST [Catalytic activity/Vol] 20 U/L Normal 10-40 [facility] ([place]) Comment on above: Performed By: #### C MP, GFR, LIPID #### [address] [address] Bili Total 1.0 mg/dL Normal 0.2-1.0 [facility] ([place]) Comment on above: Result Comment: Use of this assay is not recommended for patients undergoing treatment with eltrombopag due to the potential for falsely elevated results. Performed By: #### C MP, GFR, LIPID #### [address] [address] BUN/Creatinine Ratio 18 ratio Normal 7-27 [facility] ([place]) Comment on above: Performed By: #### C MP, GFR, LIPID #### [address] [address] Calcium [Mass/Vol] 8.8 mg/dL Normal 8.4-10.2 [facility] ([place]) Comment on above: Performed By: #### C MP, GFR, LIPID #### [address] [address] Chloride [Moles/Vol] 103 mmol/L Normal 98-107 [facility] ([place]) Comment on above: Performed By: #### C MP, GFR, LIPID #### [address] [address] CO2 [Moles/Vol] 27 mmol/L Normal 22-29 [facility] ([place] Comment on above: Performed By: #### C MP, GFR, LIPID #### [address] [address] Creatinine [Mass/Vol] 0.84 mg/dL Normal 0.55-1.02 [facility] ([place] Comment on above: Performed By: #### C MP, GFR, LIPID #### [address] [address] Electrolyte Balance 11.0 mEq/L Normal 4.0-15.0 [facility] ([place]) Comment on above: Performed By: #### C MP, GFR, LIPID #### [address] [place], [place] [address] Globulin 3.5 G/dL Normal [facility] ([place] Comment on above: Performed By: #### C MP, GFR, LIPID #### [address] [address] Glucose [Mass/Vol] 97 mg/dL Normal 70-105 [facility] ([place] Comment on above: Performed By: #### C MP, GFR, LIPID #### [address] [address] Potassium [Moles/Vol] 4.5 mmol/L Normal 3.5-5.1 [facility] ([place] Comment on above: Performed By: #### C MP, GFR, LIPID #### [address] [address] Sodium [Moles/Vol] 141 mmol/L Normal 136-145 [facility] ([place] Comment on above: Performed By: #### C MP, GFR, LIPID #### [address] [address] Total Protein 7.3 G/dL Normal 6.4-8.2 [facility] ([place] Comment on above: Performed By: #### C MP, GFR, LIPID #### [address] [address] Urea nitrogen [Mass/Vol] 15 mg/dL Normal 7-18 [facility] ([place] Comment on above: Performed By: #### C MP, GFR, LIPID #### [address] [address] LABORATORYOrdered By: SYSTEM SYSTEM on 01-15-2024 Albumin BCP dye [Mass/Vol] 3.8 G/dL Normal 3.5 - 5.0 G/dL AO ADM SS Albumin/Globulin [Mass ratio] 1.1 {ratio} Normal 1.1 - 2.5 ratio AO ADM SS ALP [Catalytic activity/Vol] 70 U/L Normal 40 - 135 U/L AO ADM SS ALT With P-5'-P [Catalytic activity/Vol] 38 U/L Normal 14 - 59 U/L AO ADM SS AST With P-5'-P [Catalytic activity/Vol] 20 U/L Normal 10 - 40 U/L AO ADM SS Bilirubin [Mass/Vol] 1.0 mg/dL Normal 0.2 - 1 .0 mg/dL AO ADM SS Comment on above: Interpretive Data: U se of this assay is not recommended for patients undergoing treatment with eltrombopag due to the potential for falsely elevated results. Calcium [Mass/Vol] 8.8 mg/dL Normal 8.4 - 10. 2 mg/dL AO ADM SS Chloride [Moles/Vol] 103 mmol/L Normal 98 - 10 7 mmol/L AO ADM SS CO2 [Moles/Vol] 27 mmol/L Normal 22 - 29 mmol/L AO ADM SS Creatinine [Mass/Vol] 0.84 mg/dL Normal 0.55 - 1.02 mg/dL AO ADM SS Electrolyte Balance 11.0 mEq/L Normal 4.0 - 15 .0 mEq/L AO ADM SS GFR/1.73 sq M.predicted among blacks MDRD (S/P/Bld) [Vol rate/Area] 88 ml/min/1.73sqm Invalid Interpretation Code AO Chemistry S Comment on above: Interpretive Data: GFR Population mean for , Non- Americans Ages 20-29 = 116 mL/min/1.73 sq.m. Ages 30-39 = 107 mL/min/1.73 sq.m. Ages 40-49 = 99 mL/min/1.73 sq.m. Ages 50-59 = 93 mL/min/1.73 sq.m. Ages 60-69 = 85 mL/min/1.73 sq.m. Ages 70+ = 75 mL/min/1.73 sq.m. Chronic Kidney Disease: Less than 60 mL/min/1.73 square meters End Stage Renal Disease: Less than 15 mL/min/1.73 square meters GFR/1.73 sq M.predicted among non-blacks MDRD (S/P/Bld) [Vol rate/Area] 73 ml/min/1.73sqm Invalid Interpretation Code AO Chemistry S Comment on above: Interpretive Data: GFR Population mean for , Non- Americans Ages 20-29 = 116 mL/min/1.73 sq.m. Ages 30-39 = 107 mL/min/1.73 sq.m. Ages 40-49 = 99 mL/min/1.73 sq.m. Ages 50-59 = 93 mL/min/1.73 sq.m. Ages 60-69 = 85 mL/min/1.73 sq.m. Ages 70+ = 75 mL/min/1.73 sq.m. Chronic Kidney Disease: Less than 60 mL/min/1.73 square meters End Stage Renal Disease: Less than 15 mL/min/1.73 square meters Globulin 3.5 G/dL Invalid Interpretation Code AO ADM SS Glucose [Mass/Vol] 97 mg/dL Normal 70 - 105 mg/dL AO ADM SS Potassium [Moles/Vol] 4.5 mmol/L Normal 3.5 - 5.1 mmol/L AO ADM SS Protein [Mass/Vol] 7.3 G/dL Normal 6.4 - 8.2 G/dL AO ADM SS Sodium [Moles/Vol] 141 mmol/L Normal 136 - 145 mmol/L AO ADM SS Urea nitrogen [Mass/Vol] 15 mg/dL Normal 7 - 18 mg/dL AO ADM SS Urea nitrogen/Creatinine [Mass ratio] 18 ratio Normal 7 - 27 ratio AO ADM SS LABORATORYOrdered By: Allen Bass on 01-15-2024 Cholesterol [Mass/Vol] 200 mg/dL Normal 0 - 200 mg/dL AO ADM SS Comment on above: Interpretive Data: C holesterol Reference Interval: Less than 200 Desirable 200-239 Borderline high risk 240 and above High risk Cholesterol in HDL [Mass/Vol] 67 mg/dL High 40 - 60 mg/dL AO ADM SS Cholesterol in LDL [Mass/Vol] 121 mg/dL Normal 0 - 130 mg/dL AO ADM SS Triglyceride [Mass/Vol] 59 mg/dL Normal 0 - 150 mg/dL AO ADM SS Comment on above: Interpretive Data: T riglyceride Reference Interval: Less than 150 Normal 150-199 Borderline high risk 200-499 High risk 500 or higher Very high risk LIPIDon 01-15-2024 Cholesterol [Mass/Vol] 200 mg/dL Normal 0-200 [facility] ([place]) Comment on above: Result Comment: Chol esterol Reference Interval: Less than 200 Desirable 200-239 Borderline high risk 240 and above High risk Performed By: #### C MP, GFR, LIPID #### [address] [place], [place] [address] Cholesterol in HDL [Mass/Vol] 67 mg/dL High 40-60 [facility] ([place]) Comment on above: Performed By: #### C MP, GFR, LIPID #### [address] [place], [place] [address] Cholesterol in LDL [Mass/Vol] 121 mg/dL Normal 0-130 [facility] ([place]) Comment on above: Performed By: #### C MP, GFR, LIPID #### [address] [place], [place] [address] Triglyceride [Mass/Vol] 59 mg/dL Normal 0-150 [facility] ([place]) Comment on above: Result Comment: Trig lyceride Reference Interval: Less than 150 Normal 150-199 Borderline high risk 200-499 High risk 500 or higher Very high risk Performed By: #### C MP, GFR, LIPID #### [address] [place], [place] [address] LABORATORYOrdered By: SYSTEM SYSTEM on 12-13-2022 Albumin BCP dye [Mass/Vol] 3.7 G/dL Invalid Interpretation Code 3.5 - 5.0 G/dL AO ADM SS Albumin/Globulin [Mass ratio] 1.1 {ratio} Invalid Interpretation Code 1.1 - 2.5 ratio AO ADM SS ALP [Catalytic activity/Vol] 74 U/L Invalid Interpretation Code 40 - 135 U/L AO ADM SS ALT With P-5'-P [Catalytic activity/Vol] 40 U/L Invalid Interpretation Code 14 - 59 U/L AO ADM SS AST With P-5'-P [Catalytic activity/Vol] 19 U/L Invalid Interpretation Code 10 - 40 U/L AO ADM SS Bilirubin [Mass/Vol] 0.6 mg/dL Invalid Interpretation Code 0.2 - 1.0 mg/dL AO ADM SS Calcium [Mass/Vol] 8.9 mg/dL Invalid Interpretation Code 8.4 - 10.2 mg/dL AO ADM SS Chloride [Moles/Vol] 104 mmol/L Invalid Interpretation Code 98 - 107 mmol/L AO ADM SS CO2 [Moles/Vol] 28 mmol/L Invalid Interpretation Code 22 - 29 mmol/L AO ADM SS Creatinine [Mass/Vol] 0.84 mg/dL Invalid Interpretation Code 0.55 - 1.02 mg/dL AO ADM SS Electrolyte Balance 9.0 mEq/L Invalid Interpretation Code 4.0 - 15.0 mEq/L AO ADM SS GFR 88 ml/min/1.73sqm Invalid Interpretation Code AO Chemistry S GFR Non- 73 ml/min/1.73sqm Invalid Interpretation Code AO Chemistry S Globulin 3.3 G/dL Invalid Interpretation Code AO ADM SS Glucose [Mass/Vol] 103 mg/dL Invalid Interpretation Code 70 - 105 mg/dL AO ADM SS HbA1c (Bld) [Mass fraction] 5.7 % Invalid Interpretation Code 4.3 - 6.4 % AO ADM SS Potassium [Moles/Vol] 4.5 mmol/L Invalid Interpretation Code 3.5 - 5.1 mmol/L AO ADM SS Protein [Mass/Vol] 7.0 G/dL Invalid Interpretation Code 6.4 - 8.2 G/dL AO ADM SS Sodium [Moles/Vol] 141 mmol/L Invalid Interpretation Code 136 - 145 mmol/L AO ADM SS Urea nitrogen [Mass/Vol] 14 mg/dL Invalid Interpretation Code 7 - 18 mg/dL AO ADM SS Urea nitrogen/Creatinine [Mass ratio] 17 ratio Invalid Interpretation Code 7 - 27 ratio AO ADM SS LABORATORYOrdered By: Adwoa Vazquez on 06-08-2022 Basophil, Absolute 0.1 103/mcL Invalid Interpretation Code 0.0 - 0.2 10^3/mcL AO Workflow SS Basophils/100 WBC (Bld) 1.2 % Invalid Interpretation Code 0.0 - 2.5 % AO Workflow SS Eosinophil, Absolute 0.6 103/mcL Invalid Interpretation Code 0.0 - 0.4 10^3/mcL AO Workflow SS Eosinophils/100 WBC (Bld) 8.4 % Invalid Interpretation Code 0.0 - 7.0 % AO Workflow SS Erythrocyte distribution width (RBC) [Ratio] 13.1 % Invalid Interpretation Code 11.5 - 14.5 % AO Workflow SS Hematocrit (Bld) [Volume fraction] 39.5 % Invalid Interpretation Code 37.0 - 47.0 % AO Workflow SS Hemoglobin (Bld) [Mass/Vol] 13.3 G/dL Invalid Interpretation Code 12.0 - 16.0 G/dL AO Workflow SS Lymphocyte, Absolute 2.4 103/mcL Invalid Interpretation Code 0.8 - 3.9 10^3/mcL AO Workflow SS Lymphocytes/100 WBC (Bld) 35.7 % Invalid Interpretation Code 10.0 - 50.0 % AO Workflow SS MCH (RBC) [Entitic mass] 29.5 pg Invalid Interpretation Code 27.0 - 31.2 pg AO Workflow SS MCHC 33.7 G/dL Invalid Interpretation Code 33.0 - 37.0 G/dL AO Workflow SS MCV (RBC) [Entitic vol] 87.5 fL Invalid Interpretation Code 80.0 - 94.0 fL AO Workflow SS Monocyte, Absolute 0.6 103/mcL Invalid Interpretation Code 0.2 - 1.0 10^3/mcL AO Workflow SS Monocytes/100 WBC (Bld) 8.7 % Invalid Interpretation Code 1.7 - 13.0 % AO Workflow SS Neutrophil, Absolute 3.1 103/mcL Invalid Interpretation Code 2.9 - 6.2 10^3/mcL AO Workflow SS Neutrophils/100 WBC (Bld) 46.0 % Invalid Interpretation Code 37.0 - 80.0 % AO Workflow SS Platelet mean volume (Bld) [Entitic vol] 10.3 fL Invalid Interpretation Code 7.4 - 10.4 fL AO Workflow SS Platelets (Bld) [#/Vol] 226 103/mcL Invalid Interpretation Code 130 - 400 10^3/mcL AO Workflow SS RBC (Bld) [#/Vol] 4.52 106/mcL Invalid Interpretation Code 4.20 - 5.40 10^6/mcL AO Workflow SS WBC 6.7 103/mcL Invalid Interpretation Code 4.6 - 10.8 10^3/mcL AO Workflow SS Albumin BCP dye [Mass/Vol] 4.1 G/dL Invalid Interpretation Code 3.5 - 5.0 G/dL AO ADM SS Albumin/Globulin [Mass ratio] 1.3 {ratio} Invalid Interpretation Code 1.1 - 2.5 ratio AO ADM SS ALP [Catalytic activity/Vol] 73 U/L Invalid Interpretation Code 40 - 135 U/L AO ADM SS ALT With P-5'-P [Catalytic activity/Vol] 38 U/L Invalid Interpretation Code 14 - 59 U/L AO ADM SS AST With P-5'-P [Catalytic activity/Vol] 18 U/L Invalid Interpretation Code 10 - 40 U/L AO ADM SS Bilirubin [Mass/Vol] 0.7 mg/dL Invalid Interpretation Code 0.2 - 1.0 mg/dL AO ADM SS Calcium [Mass/Vol] 9.1 mg/dL Invalid Interpretation Code 8.4 - 10.2 mg/dL AO ADM SS Chloride [Moles/Vol] 106 mmol/L Invalid Interpretation Code 98 - 107 mmol/L AO ADM SS Cholesterol [Mass/Vol] 204 mg/dL Invalid Interpretation Code 0 - 200 mg/dL AO ADM SS Cholesterol in HDL [Mass/Vol] 63 mg/dL Invalid Interpretation Code 40 - 60 mg/dL AO ADM SS Cholesterol in LDL [Mass/Vol] 118 mg/dL Invalid Interpretation Code 0 - 130 mg/dL AO ADM SS CO2 [Moles/Vol] 28 mmol/L Invalid Interpretation Code 22 - 29 mmol/L AO ADM SS Creatinine [Mass/Vol] 0.86 mg/dL Invalid Interpretation Code 0.55 - 1.02 mg/dL AO ADM SS Electrolyte Balance 8.0 mEq/L Invalid Interpretation Code 4.0 - 15.0 mEq/L AO ADM SS Globulin 3.2 G/dL Invalid Interpretation Code AO ADM SS Glucose [Mass/Vol] 101 mg/dL Invalid Interpretation Code 70 - 105 mg/dL AO ADM SS Potassium [Moles/Vol] 4.6 mmol/L Invalid Interpretation Code 3.5 - 5.1 mmol/L AO ADM SS Protein [Mass/Vol] 7.3 G/dL Invalid Interpretation Code 6.4 - 8.2 G/dL AO ADM SS Sodium [Moles/Vol] 142 mmol/L Invalid Interpretation Code 136 - 145 mmol/L AO ADM SS Triglyceride [Mass/Vol] 114 mg/dL Invalid Interpretation Code 0 - 150 mg/dL AO ADM SS Urea nitrogen [Mass/Vol] 13 mg/dL Invalid Interpretation Code 7 - 18 mg/dL AO ADM SS Urea nitrogen/Creatinine [Mass ratio] 15 ratio Invalid Interpretation Code 7 - 27 ratio AO ADM SS LABORATORYOrdered By: SYSTEM SYSTEM on 06-08-2022 Monocyte distribution width Auto (Bld) [Entitic vol] Not Performed 1 *NA* (06/08/22 12:06 PM) Invalid Interpretation Code 0.00 - 20.00 AO Hematology S Comment on above: Result Comment: MDW testing performed only on adult ER patients between the ages of 18-89 years. GFR 86 ml/min/1.73sqm Invalid Interpretation Code AO Chemistry S GFR Non- 71 ml/min/1.73sqm Invalid Interpretation Code AO Chemistry S LABORATORYOrdered By: Kaelyn drake on 08-23-2021 C. trachomatis DNA ZACHERY+probe Ql (Unsp spec) Negative (08/23/21 7:31 AM) Invalid Interpretation Code Negative AH Auto Viro/Sero SS C. trachomatis Interp C. trachomatis DNA not detected. Specimen is presumptive negative forC. trachomatis.A negative result does not preclude C. trachomatis infection becauseresults depend on adequate specimen collection, absence of inhibitors,and sufficient DNA to be detected. Invalid Interpretation Code See CT Interp N AH Auto Viro/Sero SS N. gonorrhoeae DNA ZACHERY+probe Ql (Unsp spec) Negative (08/23/21 7:31 AM) Invalid Interpretation Code Negative AH Auto Viro/Sero SS N. gonorrhoeae Interp N. gonorrhoeae DNA not detected. Specimen is presumptive negative forN. gonorrhoeae. A negative result does not preclude Neisseria gonorrhoeaeinfection because results depend on adequate specimen collection, absenceof inhibitors, and sufficient DNA to be detected. Invalid Interpretation Code See NG Interp N AH Auto Viro/Sero SS Laboratory - Specimen inform ationOrdered By: Kaelyn Summers on 08-23-2021 Specimen source Nom (Unsp spec) Urine (08/23/21 7:31 AM) Invalid Interpretation Code AH Auto Viro/Sero SS ANES Crissy 11-12-2017 ANES POST HNO ID: [id number] thor: Calderon GuidooService: AnesthesiologyAuthor Type: PhysicianType: Anesthesia PostOpFiled: 11/12/2017 12:22 PMNote Text:POST ANESTHESIA EVALUATION NOTESERVICE DATE: 11/12/2017SERVICE TIME: 12:22 PMDOB: 1975Vitals: 634 Temp: 36.9 ?C (98.5 ?F) 36.6 ?C (97.9 ?F) 1211/12/1710BP: 135/89 137/94 142/83 141/85 11/12/1710Pulse: 99 103 103 105 11/12/1710Resp: 14 16 16 18 11/12/1710SpO2: 92% 92% 93% 94%Validated Vital Signs: YesPOST ANES STATUS: No apparent anesthetic complications. The patient isappropriately hydrated with stable respiratory and cardiovascular status.Patient has safe and adequate airway control. The patient has appropriatepain relief and no significant post operative nausea or vomiting. Thepatient has achieved baseline mental status.Further assessment by Anesthesia Service: NoneOther Remarks:SIGNATURE: Calderon Leon MD PATIENT NAME: Alka GarridoDATE: November 12, 2017 : 12:21 PM PAGER/CONTACT #: [phone] [facility] ANES PREOPon 11-12-2017 ANES PREOP HNO ID: [id number] thor: Calderon GuidooService: AnesthesiologyAuthor Type: PhysicianType: Anesthesia PreOpFiled: 11/12/2017 7:30 AMNote Text: ANESTHESIOLOGY DAY OF SURGERY NOTESERVICE DATE: 11/12/2017SERVICE TIME: 7:28 AMDOB: 1975Procedure(s) (LRB):SEPTOPLASTY (N/A)RESECTION SUBMUCOSAL TURBINATES (N/A)ENDOSCOPY NASAL/SINUS W/ ETHMOIDECTOMY, TOTAL (N/A)ENDOSCOPY NASAL/SINUS W/ SPHENOIDOTOMY AND REMOVAL MAXILLARY SINUS TISSUE(N/A)ENDOSCOPY NASAL/SINUS W/ FRONTAL SINUS EXPLORATION (N/A)ENDOSCOPY NASAL/SINUS W/ SPHENOIDOTOMY AND REMOVAL SPHENOID SINUS TISSUE(N/A)Surgeon(s):Bennie GonzalezEstimated body mass index is 29.26 kg/(m2) as calculated from thefollowing: Height as of this encounter: 147.3 cm (4' 10). Weight as of this encounter: 63.5 kg (140 lb).Most recent hematocrit and potassium results:Hematocrit 35.2 09/01/2011Potassium 4.3 08/31/2011NES DOS/PREOP NOTE:Vitals: [id number]: 150/106Pulse: 89Resp: 18Temp: 36.9 ?C (98.5 ?F)TempSrc: Temporal ArterySpO2: 97%Weight: 63.5 kg (140 lb)Height: 147.3 cm (4' 10)ACTIVE PROBLEM LISTHypertensionIrregular MensesDeviated SeptumChronic Ethmoidal SinusitisHypertrophy of Inferior Nasal TurbinateChronic Maxillary SinusitisChronic Frontal SinusitisChronic Sphenoidal SinusitisPAST MEDICAL HISTORYDiagnosis Date- Allergic rhinitis- Asthma Flovent for maintenance, Ventolin less than once a week- HypertensionPAST SURGICAL HISTORYProcedure Laterality Date- BREAST AUGMENTATION W/PROSTHETIC IMPLANT 2004- ESSURE 11/2011 with confirmation test- LAPAROSCOPIC UTERINE NERVE ABLATION 2013- OFFICE LEEP 2001FAMILY HISTORYProblem Relation Age of Onset- Cancer Father pancreatic- Diabetes Father- Breast Cancer Paternal Grandmother 60Social History:Social HistorySubstance Use Topics- Smoking status: Never Smoker- Smokeless tobacco: Never Used- Alcohol use NoNo current facility-administered medications on file prior to encounter.Current Outpatient Prescriptions on File Prior to Encounter:fluticasone (FLOVENT) 110 mcg/actuation inhaler Inhale 2 Puffs asinstructed twice daily.fluticasone (FLONASE) 50 mcg/actuation nasal spray Use 1 [place] in eachnostril once daily.montelukast (SINGULAIR) 10 mg tablet Take 10 mg by mouth daily at bedtime.albuterol HFA (VENTOLIN HFA) 90 mcg/actuation inhaler Inhale 2 Puffs asinstructed every 4 hours as needed.EPINEPHrine (EPIPEN, AUVI-Q) 0.3 mg/0.3 mL auto-injector Inject 0.3 mLintramuscularly as directed.amLODIPine (NORVASC) 5 mg tablet Take 5 mg by mouth once daily.Omeprazole 40 mg capsule Take 1 capsule by mouth once daily. (Patient nottaking: Reported on 11/12/2017)Current Facility-Administered Medications:lidocaine 10 mg/mL (1 %) 1-2 mg injection (XYLOCAINE) 0.1-0.2 mLINTRADERMAL PRN Bennie Gonzalezlactated ringers infusion 5-30 mL/hr INTRAVENOUS CONTINUOUS Bennie Angelicerman Last Rate: 30 mL/hr at 11/12/17 0641 30 mL/hr at 11/12/17640Allergies:ALLERGIESAlle rgen Reactions- Influenza Virus Vac* Hives, Shortness of Breath, Other: See Comments Chest tightnessDOS EXAM: Adequate NPO status: YesAnesthetic risks, benefits, alternatives, personnel and consent discussed:YesPatient agrees to proceed: YesPrevious Anesthesia: No history of adverse event.Airway Assessment: MP 2; Neck ROM: Full ROM without neurologic symptoms;Airway Evaluation: No significant abnormalitiesSymptoms of Sleep Apnea: NoneDentition: Chipped, loose and/or missingChipped upper incisorAdditional Physical Exam:Lungs: Patient health status unchanged since recent history and physical.See history and physical for exam findings.Cardiac: Patient health status unchanged since recent history andphysical. See history and physical for exam findings.Additional Pertinent Findings: N/ABlood Products: Not anticipated for this procedure.Anesthetic Plan: General, Standard ASA MonitorsPain Management Plan: Parenteral or OralASA Class: 2Other Medical Problems: NoneChronic Beta Romeo medication administered within 24 hours: N/AI have interviewed and examined the patient. I have reviewed the medicalrecord and/or the pre-anesthesia evaluation, pertinent labs, and testresults.Significant changes in the patient's condition since the History andPhysical, not otherwise documented in primary service progress notes: NoThis contains updated information obtained within 48 hours ofSurgery/Procedure.SIGNATU RE: Calderon Leon MD PATIENT NAME: Alka GarridoDATE: November 12, 2017 : 7:28 AM CSN: [id number] [facility] BRIEF OP NOTon 11-12-2017 BRIEF OP NOT HNO ID: [id number] thor: Bennie Sheldon: OtolaryngologyAuthor Type: PhysicianType: Brief Op NoteFiled: 11/12/2017 10:02 AMNote Text:BRIEF OPERATIVE / PROCEDURE NOTELOG ID: [id number]/Procedure Date: 11/12/2017Incision/Procedur e Start Time: 8:27 AMIncision Close/Procedure End Time: 9:39 AMSurgeon(s)/Proceduralist( s) and Digital Designer(s):Surgeon(s) and Role: * Bennie Gonzalez - PrimaryNo Additional StaffPre-Op/Pre-Procedure Diagnosis: Deviated septum [J34.2]Hypertrophy ofnasal turbinates [J34.3]Sinusitis, maxillary, chronic [J32.0]Chronicethmoidal sinusitis [J32.2]Chronic sphenoidal sinusitis [J32.3]Post-Op/Post-Procedu re Diagnosis: Deviated septum [J34.2]Hypertrophy ofnasal turbinates [J34.3]Sinusitis, maxillary, chronic [J32.0]Chronicethmoidal sinusitis [J32.2]Chronic sphenoidal sinusitis [J32.3]Anesthesia/Procedure (s): GET * SEPTOPLASTY, Mau IT SMR, BESSFindings: c/w dxEstimated Blood Loss: 50 mlsDrains: Yes, septal splintsSpecimens: L sinus contents, R sinus contentsComplications: NoneDictation: #[id number]: Bennie Gonzalez MD PATIENT NAME: Alka GarridoDATE: November 12, 2017 : 9:54 AM Normal [facility] HISTORY PHYSICALon HISTORY PHYSICAL HNO ID: [id number] thor: Makayla (Bekah) BEKAH De SouzaService: (none)Author Type: Nurse PractitionerType: HANDPFiled: 11/12/2017 7:08 AMNote Text:HISTORY AND PHYSICAL EXAMINATIONSERVICE DATE: 11/12/2017SERVICE TIME: 6:44 [facility]: Joann Mcneil CNPSURGEON: Surgeon(s) and Role: * Bennie Gonzalez - ToneyANESTHESIA: GeneralDIAGNOSIS: Deviated septum [J34.2]Hypertrophy of nasal turbinates [J34.3]Sinusitis, maxillary, chronic [J32.0]Sinusitis chronic, frontal [J32.1]Chronic posterior ethmoidal sinusitis [J32.2]Chronic sphenoidal sinusitis [J32.3]PROCEDURE: Procedure(s):SEPTOPLASTY (N/A)RESECTION SUBMUCOSAL TURBINATES (N/A)ENDOSCOPY NASAL/SINUS W/ ETHMOIDECTOMY, TOTAL (N/A)ENDOSCOPY NASAL/SINUS W/ SPHENOIDOTOMY AND REMOVAL MAXILLARY SINUS TISSUE(N/A)ENDOSCOPY NASAL/SINUS W/ FRONTAL SINUS EXPLORATION (N/A)ENDOSCOPY NASAL/SINUS W/ SPHENOIDOTOMY AND REMOVAL SPHENOID SINUS TISSUE(N/A)SUBJECTIVECHIEF COMPLAINT: I'm here to repair a deviated septum and remove sinustissue.HPI: This is a 42 year old female who presents with c/o a deviatedseptum, snoring and sinus congestion for years. She states she hastrouble breathing through her nose. She denies any hx of nasal injury.She is here for surgical intervention.PROBLEMS WITH ANESTHESIA:no history of adverse anesthetic eventFAMILY PROBLEMS WITH ANESTHESIA:no history of adverse anesthetic eventMETS:> 4 METSFUNCTIONAL STATUS: IndependentPAST MEDICAL HISTORYDiagnosis Date- Allergic rhinitis- Asthma Flovent for maintenance, Ventolin less than once a week- HypertensionPAST SURGICAL HISTORYProcedure Laterality Date- BREAST AUGMENTATION W/PROSTHETIC IMPLANT 2004- ESSURE 11/2011 with confirmation test- LAPAROSCOPIC UTERINE NERVE ABLATION 2013- OFFICE LEEP 2000FAMILY HISTORYProblem Relation Age of Onset- Cancer Father pancreatic- Diabetes Father- Breast Cancer Paternal Grandmother 60Social HistorySubstance Use Topics- Smoking status: Never Smoker- Smokeless tobacco: Never Used- Alcohol use NoPrior to Admission medications as of 11/12/17 0651Medication Sig Last Dose TakingHYDROCHLOROTHIAZIDE ORAL Take by mouth once daily. 11/09/2017 Yesfluticasone (FLOVENT) 110 mcg/actuation inhaler Inhale 2 Puffs asinstructed twice daily. 11/11/2017 at 0800 Yesfluticasone (FLONASE) 50 mcg/actuation nasal spray Use 1 [place] in eachnostril once daily. 11/11/2017 at Unknown time Yesmontelukast (SINGULAIR) 10 mg tablet Take 10 mg by mouth daily at bedtime.11/11/2017 at Unknown time Yesalbuterol HFA (VENTOLIN HFA) 90 mcg/actuation inhaler Inhale 2 Puffs asinstructed every 4 hours as needed. 11/12/2017 at 0430 YesEPINEPHrine (EPIPEN, AUVI-Q) 0.3 mg/0.3 mL auto-injector Inject 0.3 mLintramuscularly as directed.amLODIPine (NORVASC) 5 mg tablet Take 5 mg by mouth once daily.Omeprazole 40 mg capsule Take 1 capsule by mouth once daily.Patient not taking: Reported on 11/12/2017 Not Taking at Unknown timeALLERGIESAllergen Reactions- Influenza Virus Vac* Hives, Shortness of Breath, Other: See Comments Chest tightnessCOMPLETE REVIEW OF SYSTEMS:GENERAL: No weight loss, malaise or feversRESPIRATORY: Negative for cough, hemoptysis, wheezing, COPD, dyspnea orshortness of breath; positive hx of asthma- controlled with Flovent- ptuses Ventolin less than once a week; positive hx of allergic rhinitisCARDIOVASCULAR: Negative for chest pain, leg swelling, hypertension, CHFor palpitations; positive hx of HTNGI: No nausea, vomiting, or diarrheaGU: No history of dysuria, frequency or incontinenceMUSCULOSKELETAL : Negative for joint pain or swelling, back pain or musclepainPSYCH: Negative for sleep disturbance, mood disorder and recentpsychosocial stressorsENDOCRINE: Negative for cold or heat intolerance, polyuria, polydipsia andgoiterNEURO: No history of headaches, syncope, paralysis, seizures or tremorsNegative for stroke, seizures or headaches.OBJECTIVEPHYSICAL EXAM:MENTAL STATUS: alert, oriented to person, place and timeHEENT: Normocephalic/atraumatic, pharynx clear; left front top toothchippedLUNGS: Lungs clear to auscultation, Good diaphragmatic excursionCARDIAC: Normal S1 and S2; no rubs, murmurs, or gallopsABDOMEN: Abdomen soft, non-tender, BS normal, No masses or organomegalyEXTREMITIES: 2+ pedal pulses, no pedal edema 634BP: 150/106Pulse: 89Resp: 18Temp: 36.9 ?C (98.5 ?F)TempSrc: Temporal ArterySpO2: 97%Weight: 63.5 kg (140 lb)Height: 147.3 cm (4' 10)Body mass index is 29.26 kg/(m2).SIGNATURE: Makayla De Souza CNP PATIENT NAME: Alka GarridoDATE: November 12, 2017 : 6:44 AM PAGER/CONTACT #: Normal [facility] NURSING PROGon 11-12-2017 NURSING PROG HNO ID: [id number] thor: Perlita (Rn) Beverly Buenrostroice: (none)Author Type: Registered NurseType: Nursing Progress NoteFiled: 11/12/2017 11:28 AMNote Text:DR GONZALEZ AT RECLINER SIDE SPEAKING WITH PATIENT ABOUT HOME-GOING. FREEMAN STATES HE WILL PRINT A SCRIPT FOR NAUSEA MEDICATION WELL THEHOME-GOING [facility] PRESCRIPTION. DR GONZALEZ STATES HE GAVE AFRIN BOTTLE TOPATIENT'S GRANDMOTHER AND EXPLAINED TO PATIENT'S GRANDMOTHER WHEN AND HOWTO USE THE AFRIN. Normal [facility] NURSING PROG HNO ID: [id number] thor: Perliat (Rn) Porter, FELISAervice: (none)Author Type: Registered NurseType: Nursing Progress NoteFiled: 11/12/2017 10:14 AMNote Text:DR GONZALEZ AT BEDSIDE DUE TO PATIENT'S ACTIVE NASAL BLEEDING LARGE AMOUNTWITH A COUPLE PEA SIZED CLOTS. DR GONZALEZ PLACED AFRIN UP PATIENT'SBILATERAL NARES. PATIENT TOLERATED WELL. Normal [facility] OPERATIVE NOon 11-12-2017 OPERATIVE NO HNO ID: [id number] thor: Bennie GonzalezService: OtolaryngologyAuthor Type: PhysicianType: Operative ReportFiled: 11/12/2017 11:32 AMNote Text:[facility] - Operative Report - ASCSURGEON: CHRISTOPHER GlasgowATINORMA NAME: ALKA GARRIDO LMRN: [id number] CSN: [id number] OF SURGERY: 11/12/2017DATE OF : 1975 SEX/AGE: F/42PATIENT TYPE: A HOSP SVC: OTOL LOCATION: [id number] OF SURGERY: 11/12/2017SURGEON: CHRISTOPHER GlasgowREOPERATIVE DIAGNOSIS:1. Septal deviation.2. Inferior turbinate hypertrophy.3. Chronic sinusitis.POSTOPERATIVE DIAGNOSIS:1. Septal deviation.2. Inferior turbinate hypertrophy.3. Chronic sinusitis.OPERATION:1. Septoplasty.2. Bilateral endoscopic sinus surgery.3. Bilateral inferior turbinate submucous resection.ANESTHESIA: General endotracheal.ESTIMATED BLOOD LOSS: 50 mL.SPECIMENS:1. Left sinus contents.2. Right sinus contents.OPERATIVE INDICATIONS: This patient has a history of nasal obstructiondue to the septum and turbinates and has chronic sinusitis. Informedconsent was obtained from the patient for the surgery.OPERATIVE PROCEDURE: The patient was brought to the operating room andhad adequate general endotracheal anesthesia established. The patient waspositioned and the preoperative surgical safety checklist performed. Thepatient was prepared and draped in standard fashion. Local anestheticwas injected along the septum, inferior turbinates, and sinus areas. Aleft-sided septal incision was performed and carried to the right sidewhere caudal and cephalic flaps were elevated. The bony cartilaginousjunction of the septum was incised and left-sided flaps elevated. Thedeviated portions of the bone and cartilage were removed. This materialwas straightened and replaced between the septal flaps.Under endoscopic guidance, the left-sided sinuses were addressed. Theuncinate process was down fractured and removed. The natural maxillarysinus ostium was identified and then surgically enlarged. Thickenedmucosa was removed from the sinus. The frontal sinus drainage tract wasidentified and thickened mucosa removed from the frontal sinus drainagetract and the frontal sinus. A total ethmoidectomy was performed. Thenatural sphenoid sinus ostium was identified and then surgicallyenlarged. Thickened material was removed from the sinus. The patientwas suctioned and there was complete hemostasis. Temporary packing wasplaced. The procedure was repeated on the right side in similar fashion.The septal incision was closed and septal splints were applied. The leftinferior turbinate was incised anteriorly and a submucous resectionperformed. Bipolar cautery was used. This was repeated on the rightside. The patient had the packing removed and was suctioned again.There was complete hemostasis. The patient was awakened and extubated inthe operating room. The postoperative surgical safety checklist wasperformed. The patient was transferred to the PACU in good conditionhaving tolerated the procedure well.Bennie Gonzalez MDOtolaryngologyBMS:modlD: 11/12/2017 10:02:28T: 11/12/2017 11:02:31Job #: [id number] [facility] PT EDon 11-12-2017 PT ED HNO ID: [id number] thor: Rosanne (Kaela) FELISA Brewerervice: (none)Author Type: Registered NurseType: Patient EducationFiled: 11/12/2017 6:47 AMNote Text:ONGOING PATIENT EDUCATION TOPIC Reinforced: PAIN SCALEPatient Name: Alka GarridoMRN: [id number] [facility]/SH-OPF-WZXopblacw s To LearnMotivation To Learn: InterestedInstruction Provided To: PatientLearning ResponsePatient/Family Response: Verbalizes understanding of: PAIN SCALEMethod of Instruction: Individual instructionFollow-Up Plan: Complete - No need for follow-upElectronically signed by: Rosanne Brewer RN [facility] Surgical Tissue Examon 11-12 Surgical Tissue Exam Test performed at A [address] [address]YVYR: ALKA GARRIDO [id number] REQUESTING: BENNIE GONZALEZ M.D.FINAL DIAGNOSIS:A) SINUS, RIGHT, EXCISION - FEATURES OF CHRONIC SINUSITIS, SCANTDETACHED FRAGMENTS OF ACUTE INFLAMMATORY EXUDATE, MUCUS AND BONE.B) SINUS, LEFT, EXCISION - FEATURES OF CHRONIC SINUSITIS, DETACHEDFRAGMENTS OF ACUTE INFLAMMATORY EXUDATE, MUCUS AND BONE. SEE COMMENT.Comment: Recommend clinical correlation.OPERATIVE PROCEDURE:Septoplasty, endoscopic sinus surgeryCLINICAL INFORMATION:Chronic sinusitisGROSS DESCRIPTION:A) Right sinus contentsReceived in formalin labeled right sinus contents are multiplefragments of henry-brown soft mucosal tissue aggregating to 3.5 x 2 x 0.2cm. A treasury representative section is submitted in cassette A.B) Left sinus contentsReceived in formalin labeled left sinus contents are multiple fragmentsof henry-brown soft mucosal tissue cartilaginous tissue which aggregateto 3.5 x 2 x 0.3 cm. Facility Sales And Admin sections submitted in cassette B.BMP:colin VILLARREAL M.D. PATHOLOGIST(Electronic signature on file)Signed out: 11/14/2017 15:43PRINTED: 11/14/2017 Page 1 of 1 [facility] Comment on above: Performed By: #### S URG ####[facility] [id number] HOSPon 09-26-2017 HOSP Patient:Moi Garrido non LMRN: Height:4' 10(1.473 m)Weight:No patient weight recorded within the last 30 days.Outpatient Medications as of 11/12/17:HYDROCHLOROTHIAZID E ORALEPINEPHrine (EPIPEN, AUVI-Q) 0.3 mg/0.3 mL auto-injectorfluticasone (FLOVENT) 110 mcg/actuation inhalerfluticasone (FLONASE) 50 mcg/actuation nasal sprayamLODIPine (NORVASC) 5 mg tabletmontelukast (SINGULAIR) 10 mg tabletalbuterol HFA (VENTOLIN HFA) 90 mcg/actuation inhalerOmeprazole 40 mg capsuleAdmission/Clinic Administered Medications as of 11/12/17:lidocaine 10 mg/mL (1 %) 1-2 mg injection (XYLOCAINE)lactated ringers infusionProblem List:Hypertension [I10]Irregular menses [N92.6]Deviated septum [J34.2]Chronic ethmoidal sinusitis [J32.2]Hypertrophy of inferior nasal turbinate [J34.3]Chronic maxillary sinusitis [J32.0]Chronic frontal sinusitis [J32.1]Chronic sphenoidal sinusitis [J32.3]Allergies:Influenza Virus Vaccine Trivalent 2010-2011Date Verified: 11/12/17Lab ValuesNo results within the last 30 days for the following basenames: K,HCTProgress Notes ([facility]):Yazmin Altman RN, RN 11/03/2017 7:06 AM SignedImmunotherapy [facility] Pt previously charged for2 vials (AANDB) in a 4 vial series. New order 1:10 No charge placed Cody RNProgress Notes ([facility]):Anabel Morris 11/03/2017 7:10 AM SignedPt identified by name and birthdate.Allergy injections given subcutaneously by Anabel Morris RN.November 03, 2017 Time Given: 627Patient states they took antihistamine. Patient states took singular at 2000yesterday..Immunotherap y Order written on: 09/08/[address] Mathew Hamilton patient has asthma, patient states symptoms controlled: YesPatient did not report a recent illness.Patient on Beta romeo:NoPatient has their Epi pen with them, YesVial A Content: DUST MITESPatient did not have a large late local reaction to previous injection.Concentration: 1:100Dose: 0.5 ml SQArm: right upper arm (proximal)Reaction after 30 minutes: pinpointVial B Content: TREES, GRASSES, ANIMAL DANDERPatient did not have a large late local reaction to previous injection.Concentration: 1:100Dose: 0.5 ml SQArm: left upper arm (proximal)Reaction after 30 minutes: pea size induration and flarePreviously instructed about signs and symptoms of local and systemic reactions.Appointment line and nurses station number given as well as injection times atadministering location.Anabel Morris [facility] Vital Signs Date Time Vital Sign Value Performing Clinician Mil quigley 12-25-2024 22:13-0500 Diastolic Blood Pressure Non-Invasive 88 mm[Hg] MASHA REICHFIELD DO [facility] 12-25-2024 22:13-0500 Heart rate 65 /min MASHA REICHWist[employer] DO [facility] 12-25-2024 22:13-0500 Respiratory rate 18 /min MASHA REICHW[employer] DO [facility] 12-25-2024 22:13-0500 Systolic Blood Pressure Non-Invasive 145 mm[Hg] MASHA REICHW[employer] DO [facility] 12-25-2024 21:34-0500 Diastolic Blood Pressure Non-Invasive 94 mm[Hg] MASHA REICHFIELD DO [facility] 12-25-2024 21:34-0500 Heart rate 67 /min MASHA REICHWistron [employer] DO [facility] 12-25-2024 21:34-0500 Reason For Taking VItal Signs MASHA REICHFIELD DO [facility] 12-25-2024 21:34-0500 Respiratory rate 18 /min MASHA REICHFIELD DO [facility] 12-25-2024 21:34-0500 Systolic Blood Pressure Non-Invasive 143 mm[Hg] MASHA REICHFIELD DO [facility] 12-25-2024 20:38-0500 Body temperature 98.24 [degF] MASHA REICHFIELD DO [facility] 12-25-2024 20:38-0500 Body weight 79.2 kg MASHA REICHFIELD DO [facility] 12-25-2024 20:38-0500 Diastolic Blood Pressure Non-Invasive 106 mm[Hg] MASHA REICHFIELD DO [facility] 12-25-2024 20:38-0500 Heart rate 77 /min MASHA REICHFIELD DO [facility] 12-25-2024 20:38-0500 Respiratory rate 20 /min MASHA REICHFIELD DO [facility] 12-25-2024 20:38-0500 Systolic Blood Pressure Non-Invasive 158 mm[Hg] MASHA REICHFIELD DO [facility] 09-21-2022 12:00-0400 Body temperature 98.24 [degF] DR RAMBO PETERSON MD [facility] 09-21-2022 12:00-0400 Diastolic blood pressure 98 mm[Hg] DR RAMBO PETERSON MD [facility] 09-21-2022 12:00-0400 Heart rate 82 /min DR RAMBO PETERSON MD [facility] 09-21-2022 12:00-0400 Mean blood pressure 118 mm[Hg] DR RAMBO PETERSON MD [facility] 09-21-2022 12:00-0400 Respiratory rate 18 /min DR RAMBO PETERSON MD [facility] 09-21-2022 12:00-0400 Systolic blood pressure 158 mm[Hg] DR RAMBO PETERSON MD [facility] 07-29-2022 16:10-0400 Body temperature 98.24 [degF] RAMBO MCBRIDE MD [facility] 07-29-2022 16:10-0400 Diastolic blood pressure 95 mm[Hg] RAMBO MCBRIDE MD [facility] 07-29-2022 16:10-0400 Heart rate 93 /min RAMBO MCBRIDE MD [facility] 07-29-2022 16:10-0400 Respiratory rate 16 /min RAMBO MCBRIDE MD [facility] 07-29-2022 16:10-0400 Systolic blood pressure 156 mm[Hg] RAMBO MCBRIDE MD [facility] 06-18-2022 17:40-0400 Diastolic blood pressure 88 mm[Hg] ELIDA HERNANDEZ MD [facility] 06-18-2022 17:40-0400 Heart rate 74 /min ELIDA HERNANDEZ MD [facility] 06-18-2022 17:40-0400 Mean blood pressure 101 mm[Hg] ELIDA HERNANDEZ MD [facility] 06-18-2022 17:40-0400 Respiratory rate 16 /min ELIDA HERNANDEZ MD [facility] 06-18-2022 17:40-0400 Systolic blood pressure 126 mm[Hg] ELIDA HERNANDEZ MD [facility] 06-18-2022 16:27-0400 Body temperature 98.6 [degF] ELIDA HERNANDEZ MD [facility] 06-18-2022 16:27-0400 Body weight 77.7 kg ELIDA HERNANDEZ MD [facility] 06-18-2022 16:27-0400 Diastolic blood pressure 95 mm[Hg] ELIDA HERNANDEZ MD [facility] 06-18-2022 16:27-0400 Heart rate 78 /min ELIDA HERNANDEZ MD [facility] 06-18-2022 16:27-0400 Mean blood pressure 107 mm[Hg] ELIDA HERNANDEZ MD [facility] 06-18-2022 16:27-0400 Respiratory rate 16 /min ELIDA HERNANDEZ MD [facility] 06-18-2022 16:27-0400 Systolic blood pressure 131 mm[Hg] ELIDA HERNANDEZ MD [facility] Encounters Encounter Date Encounter Type Care Provider Facility Start: 09-20-2025 [facility] Facility :[facility] Start: 12-25-2024 End: 12-25-2024 Emergency department patient visit MASHA CANALES DO [facility] Start: 05-10-2024 End: 05-14-2024 ambulatory LIYAH BARNES MD Facility:[facility] Start: 05-10-2024 End: 05-14-2024 Encounter for gynecological examination (general) (routine) without abnormal findings LIYAH BARNES MD Facility:[facility] Start: 05-10-2024 End: 05-14-2024 Outreach Lab LIYAH BARNES MD [facility] Start: 05-07-2024 End: 05-07-2024 ambulatory JOANN MCNEIL [employer] Facility:[facility] Start: 05-07-2024 End: 05-07-2024 Patient encounter procedure JOANN MCNEIL [employer] [facility] Start: 05-06-2024 ambulatory JOANN MCNEIL [employer] Facility:[facility] Start: 02-26-2024 ambulatory JOANN MCNEIL [employer] Facility:[facility] Start: 01-15-2024 End: 01-15-2024 ambulatory JOANN MCNEIL [employer] Facility:[facility] Start: 01-15-2024 End: 01-15-2024 Patient encounter procedure JOANN MCNEIL [employer] [facility] Start: 12-13-2022 End: 12-13-2022 Patient encounter procedure JOANN MCNEIL [employer] [facility] Start: 12-09-2022 End: 12-09-2022 Patient encounter procedure JOANN MCNEIL [employer] [facility] Start: 09-21-2022 End: 09-21-2022 Emergency department patient visit DR RAMBO PETERSON MD [facility] Start: 07-29-2022 End: 07-29-2022 Emergency department patient visit RAMBO MCBRIED MD [facility] Start: 07-26-2022 End: 07-26-2022 Patient encounter procedure DORIE REYNOLDS [employer]-CNM [facility] Start: 07-09-2022 End: 07-13-2022 Outreach Lab DORIE RODOLFO [employer]CN[employer] [facility] Start: 06-18-2022 End: 06-18-2022 Emergency department patient visit ELIDA HERNANDEZ MD [facility] Start: 06-08-2022 End: 06-08-2022 Patient encounter procedure JOANN MCNEIL [employer] [facility] Start: 08-23-2021 End: 08-27-2021 Outreach Lab JOANN MCNEIL [employer] [facility] Start: 11-12-2017 End: 11-13-2017 Ambulatory BENNIE GONZALEZ Facility:[facility] Start: 11-12-2017 End: 11-12-2017 Ambulatory BENNIE GONZALEZ [facility] Start: 11-12-2017 End: 11-12-2017 Evaluation and management of inpatient BENNIE GONZALEZ Facility:[facility] Start: 08-20-2017 Ambulatory [facility] Facility: [facility] Start: 07-14-2017 End: 07-15-2017 Ambulatory [facility] Facility:[facility] Procedures Date Procedure Procedure Detail Performing Clinician Start: 11-17-2019 Cryotherapy - action (qualifier value) JOANN MCNEIL APRN-[employer] Start: 11-17-2018 Structure of carpal canal (body structure) JOANN LORSON [employer] Start: 11-17-2015 Nasal sinus endoscopy L AYAN MCNEIL [employer] Start: 11-17-2014 Ablation - action (qualifier value) JOANN MCNEIL [employer] Comment on above: uterine ablation Start: 11-17-2011 Transcervical sterilization JOANN MCNEIL [employer] Start: 11-17-2003 Augmentation mammoplasty JOANN MCNEIL [employer] Immunizations Immunization Date Immunization Notes Care Provider [facility] 10-24-2021 COVID-19, mRNA, LNP- S, PF, 100 mcg or 50 mcg dose; Translations: [Moderna COVID-19 Vaccine] JOANN MCNEIL [employer] [facility] 09-26-2021 COVID-19, mRNA, LNP- S, PF, 100 mcg or 50 mcg dose; Translations: [Moderna COVID-19 Vaccine] JOANN MCNEIL [employer] [facility] 08-05-2017 measles/mumps/rubell a virus vaccine JOANN MCNEIL [employer] [facility] 08-05-2017 tetanus toxoid, redu pedro diphtheria toxoid, and acellular pertussis vaccine, adsorbed JOANN MCNEIL [employer] [facility] 07-26-2017 measles/mumps/rubell a virus vaccine JOANN ALBERT [employer] [facility] 07-26-2017 tetanus toxoid, redu pedro diphtheria toxoid, and acellular pertussis vaccine, adsorbed JOANN ALBERT [employer] [facility] Payers Date Payer Category Payer Self-pay [id number] 2024 Medicaid [id number] 2019 Medicaid [id number] 2019 Unknown 1975 Unknown [id number] 2.16.8 [id number] 1975 Unknown [id number] 2.16.8 [id number] 1975 Unknown [id number] 2.16.8 [id number] 1975 Unknown [id number] 2.16.8 [id number] 1975 Unknown [id number] 2.16.8 [id number] 1975 Unknown [id number] 2.16.8 [id number] Medicaid [id number] Unknown [id number] 2.16.8 [id number] Social History Date Type Detail Facility Start: 05-01-2020 End: 12-25-2024 Never smoked tobacco (finding) [facility] Sex Assigned At Female [facility] Sexual Orientation [facility] Start: 10-10-2020 Sex Female (finding) [facility] Functional Status Date Assessment Result Facility 12-25-2024 Functional Status ID band on, Call device within reach, Bed in low position, Wheels locked, Bedside Cart Locked, Safety level maintained [facility] 09-21-2022 Functional Status ID band on, Allergy Band on, Call device within reach, Bed in low position, Wheels locked, Upper/Half-Length side-rails up, Phone within reach, personal items within reach [facility] 07-29-2022 Functional Status Standard Safet y ID band on, Call device within reach, Bed in low position, Wheels locked, Upper/Half-Length side-rails up, Bedside Cart Locked, Safety level maintained [facility] 06-18-2022 Functional Status Independent [facility] 06-18-2022 Functional Status Standard Safet y ID band on, Allergy Band on, Call device within reach, Bed in low position, Wheels locked, Upper/Half-Length side-rails up, Phone within reach, personal items within reach [facility] Mental Status Date Assessment Result Facility 12-25-2024 Mental Status Orientation Oriented x 4 [facility] 09-21-2022 Mental Status Oriented x 4 [facility] 07-29-2022 Mental Status Oriented x 4 [facility] 06-18-2022 Mental Status Orientation Oriented x 4 [facility] 06-18-2022 Mental Status [facility] Clinical Notes 07-26-2020 to 12-25-2024 Note Date & Type Note Facility 12-25-2024 Hospital Discharg e instructions Patient Education 12/25/2024 20:52:26 Chest Pain, Uncertain Cause Uncertain Causes of Chest Pain Chest pain can happen for a number of reasons. Sometimes the cause can't be determined. If your condition does not seem serious, and your pain does not appear to be coming from your heart, your healthcare provider may recommend watching it closely. Sometimes the signs of a serious problem take more time to appear. Many problems not related to your heart can cause chest pain. These include: Musculoskeletal. Costochondritis is an inflammation of the tissues around the ribs that can occur from trauma or overuse injuries, or a strain of the muscles of the chest wall Respiratory. Pneumonia, collapsed lung (pneumothorax), or inflammation of the lining of the chest and lungs (pleurisy) Gastrointestinal. Esophageal reflux, heartburn, ulcers, or gallbladder disease Anxiety and panic disorders Nerve compression and inflammation Rare miscellaneous problems such as aortic aneurysm (a swelling of the large artery coming out of the heart) or pulmonary embolism (a blood clot in the lungs) Home care After your visit, follow these recommendations: Rest today and avoid strenuous activity. Take any prescribed medicine as directed. Be aware of any recurrent chest pain and notice any changes Follow-up care Follow up with your healthcare provider if you do not start to feel better within 24 hours, or as advised. Call 911 Call 911 if any of these occur: A change in the type of pain: if it feels different, becomes more severe, lasts longer, or begins to spread into your shoulder, arm, neck, jaw or back Shortness of breath or increased pain with breathing Weakness, dizziness, or fainting Rapid heart beat Crushing sensation in your chest When to seek medical advice Call your healthcare provider right away if any of the following occur: Cough with dark colored sputum (phlegm) or blood Fever of 100.4 F (38 C) or higher, or as directed by your healthcare provider Swelling, pain or redness in one leg [id number] [employer]. [address] [place] [address]. All rights reserved. This information is not intended as a substitute for professional medical care. Always follow your healthcare professional's instructions. Follow Up Care 12/25/2024 20:35:58 With:LILIANA WILLIAM MD Address: [address] [facility] [address] [facility] [place] [address] [phone] When:2-4 days With:Go to emergency room if symptoms worsen Address:Unknown When:2-4 days With:JOANN MCNEIL APRN-[facility] Address: [address] [facility] [place] [address] [phone] When:2-4 days [facility] 12-25-2024 Note Discharge Instructions Thank you for allowing [facility] to assist you with your healthcare needs. The following is important discharge information regarding your hospital visit. Diagnosis from Today's Visit Chest pain What to Do Next Instructions from Your Care Team Take Tylenol and or Motrin as needed for pain. Do not exceed the recommended dose. Would recommend follow-up with Dr. William/cardiovascular consultants by calling number on Friday for follow-up. Return the emergency department if you experience worsening symptoms or any other care concern No qualifying data available. Post Acute Orders No qualifying data available. You Need to Schedule the Following Appointments Follow Up with LILIANA WILLIAM MD When:Within 2-4 days Where:[address] [facility] [place] [address] [phone] Follow Up with Go to emergency room if symptoms worsen When:Within 2-4 days Follow Up with JOANN MCNEIL APRN-BEKAH When:Within 2-4 days Where:[address] [facility] [place] [address] [phone] Allergies Animal Dander Unknown Grass Unknown Mites Unknown influenza virus vaccine, inactivated Swelling, Shortness of breath lisinopril Tickle Medications Please ask your primary doctor or pharmacist before taking any other medication not listed, including over the counter drugs, herbal medications, vitamins and or supplements as they may interact with your home medications. What How Much When Why Instructions Last Dose Unchanged albuterol (Ventolin HFA MDI (90 mcg/ inh) inhalation aerosol) 2 puff(s) by inhalation Every 4 hours as needed for as needed for wheezing Duration: 30 Days Unchanged ascorbic acid-collagen (Collagen Skin Renewal) by mouth Once a day Unchanged budesonide-formoterol (budesonide-formoterol 160 mcg-4.5 mcg/ inh Inhaler) 2 puff(s) by inhalation Two (2) times a day Severe persistent asthma Duration: 90 Days Unchanged cetirizine (Zyrtec 10 mg oral tablet) by mouth Once a day Unchanged fluticasone nasal (Flonase 50 mcg/ inh nasal spray) 1 spray(s) each nostril Two (2) times a day Duration: 90 Days Unchanged losartan (losartan 100 mg oral tablet) 1 tab(s) by mouth Once a day Duration: 90 Days Unchanged meloxicam (meloxicam 15 mg oral tablet) 1 tab(s) by mouth Once a day Unchanged Misc Medication (Allergy Injection) Unchanged montelukast (Singulair 10 mg oral tablet) 1 tab(s) by mouth Once a day (in the morning) Duration: 90 Days Unchanged multivitamin (Multivitamin) 1 tab(s) by mouth Every day Unchanged omeprazole (omeprazole 40 mg oral delayed release capsule) 1 cap by mouth Once a day Duration: 90 Days Please take this list to your next doctor s visit. Bring all medications you take, including over the counter medications, herbals and other supplements with you to your doctor s visit. Patients and families are reminded to discard old lists and to update any records with all medication providers or retail pharmacies. Education Materials Uncertain Causes of Chest Pain Chest pain can happen for a number of reasons. Sometimes the cause can't be determined. If your condition does not seem serious, and your pain does not appear to be coming from your heart, your healthcare provider may recommend watching it closely. Sometimes the signs of a serious problem take more time to appear. Many problems not related to your heart can cause chest pain. These include: Musculoskeletal. Costochondritis is an inflammation of the tissues around the ribs that can occur from trauma or overuse injuries, or a strain of the muscles of the chest wall Respiratory. Pneumonia, collapsed lung (pneumothorax), or inflammation of the lining of the chest and lungs (pleurisy) Gastrointestinal. Esophageal reflux, heartburn, ulcers, or gallbladder disease Anxiety and panic disorders Nerve compression and inflammation Rare miscellaneous problems such as aortic aneurysm (a swelling of the large artery coming out of the heart) or pulmonary embolism (a blood clot in the lungs) Home care After your visit, follow these recommendations: Rest today and avoid strenuous activity. Take any prescribed medicine as directed. Be aware of any recurrent chest pain and notice any changes Follow-up care Follow up with your healthcare provider if you do not start to feel better within 24 hours, or as advised. Call 911 Call 911 if any of these occur: A change in the type of pain: if it feels different, becomes more severe, lasts longer, or begins to spread into your shoulder, arm, neck, jaw or back Shortness of breath or increased pain with breathing Weakness, dizziness, or fainting Rapid heart beat Crushing sensation in your chest When to seek medical advice Call your healthcare provider right away if any of the following occur: Cough with dark colored sputum (phlegm) or blood Fever of 100.4 F (38 C) or higher, or as directed by your healthcare provider Swelling, pain or redness in one leg [phone] [employer]. [address] [place] [address], [place] [address]. All rights reserved. This information is not intended as a substitute for professional medical care. Always follow your healthcare professional's instructions. Additional Information VACCINATE! IT SAVES LIVES! Members of the community who have not yet received the COVID-19 vaccine and would like to receive it can visit one of [facility] vaccine clinics. There are many vaccine clinic locations within the [facility]. For locations and available times, please visit [email or web address].ut[place]. [email or web address] It is important to note that some COVID mobile vaccine clinics are held outdoors and may be canceled in rainy or stormy conditions. To learn more about pediatric vaccinations (ages 5-11), we invite you to visit the [facility] webpage. https://www.[facility].org/p ages/6106-Odbzw-Jmyxqekzjkc-Freq kdlros-Chcii-Jehsdufbr.html To learn more about the COVID-19 vaccine, we invite you to visit the CDC website for a list of frequently asked questions. https://www.cdc.gov/coronavirus/ 2019-ncov/vaccines/faq.html [facility] Patient Portal Access Instructions: Stay connected with your healthcare team and access your personal medical information anytime with the [facility] Patient Portal. If you would like a full copy of your medical records please contact the [facility] Medical Records Department Friday through Friday between 8a.m. and 4:30p.m. Please follow the directions below to access the portal: 1.Access the email account you provided upon registration to the hospital.2.Look for an invitation email from [facility].3.Open the email and access the invitation link: Accept Invitation to [facility]4.Fill in the required mujica to create your account. Sign into www.[employer]evo with your username and password that you created in the above steps to stay up to date. You can then view a summary of results, a summary of your visits, and the ability to download your summaries to your computer or send the information securely to a physician. Remember that your healthcare information is confidential, so carefully consider who you will allow to register on the [facility] Patient Portal for access to your information. You can also access the [facility] Patient Portal on the [employer] kiah. Simply click on Health Records under Health Data and then click on the [employer] logo. HOW TO SAFELY DISPOSE OF PRESCRIPTION MEDICATIONS Please use one of the following methods to safely dispose of your unused medications. 1.Use a drug disposal kit: the drug disposal pouch allows you to safely discard your old and unused drugs. Ask your nurse to give you one when you are discharged.2.Visit a local take-back location: Many local pharmacies and police departments have programs that collect old and unwanted prescription drugs. Call your local pharmacy or go to http://Picateers.Road Hero/3O5Ux6g to find one close to you.3.Make use of household items: Use cat litter or old coffee grounds to dispose medications if other options are not available. Mix your drugs with these household products, seal them in an airtight container and throw it into the garbage. Call [facility]: [phone] to be sure your drugs can be disposed of in this way. Some medicines may require a different approach.4.Never flush your medications down the toilet. IF YOU HAVE BEEN PRESCRIBED AN OPIOIDS FOR PAIN If you have been prescribed an opioid (such as hydrocodone, oxycodone or morphine), it is critical to understand the possible side effects and risks of opioid pain medications. Even when taken as directed, opioids can have several side effects including: Tolerance, meaning you might need to take more of a medication for the same pain relief. Nausea, vomiting and/or constipation. Sleepiness, dizziness, dry mouth, confusion, depression or itching. Physical dependence, meaning you have withdrawal symptoms when a medication is stopped ? this can develop within a few days. KNOW YOUR RESPONSIBILITIES It is important to know exactly how much and how often to take the opioid pain medications you are prescribed. Never take opioids in higher amounts or more often than prescribed. Do not combine opioids with alcohol or other drugs that cause drowsiness, such as benzodiazepines, also known as benzos, including diazepam and alprazolam, muscle relaxants or sleep aids. Never sell or share prescription opioids. This is illegal. Store opioids in a secure place and out of reach of others (including children, family, friends and visitors). The last page(s) of this document has been signed and retained as a CHART COPY Signatures Patient Education Materials Chest Pain, Uncertain Cause Medication Leaflets My discharge plan and instructions have been reviewed and explained to me and I,HECTOR ALKA Jaydon understand my current condition and have read and understand these discharge instructions. I have received a written copy of the plan/instructions. If I have questions, I am aware that I should contact my doctor. Patient/Facility Sales And Admin Signature: Date/Time: Relationship to Patient: Witness Name/Signature: Date/Time: [facility] 12-25-2024 Note Exam Date Time Procedure Performing Provider Status 12/25/24 9:18 PM XR Chest 1 View COLTON ARROYO DO; Aut h (Verified) [id number] ORIGINAL EXAMINATION: ONE XRAY VIEW OF THE CHEST12/25/2024 9:19 pm COMPARISON: 05/09/2023 HISTORY: ORDERING SYSTEM PROVIDED HISTORY: Reason for Exam: chest pain FINDINGS: Cardiomediastinal contours are within normal limits. No focal consolidation or pulmonary edema. No pleural effusion or visible pneumothorax. The bony thorax appears intact. IMPRESSION: No acute radiographic findings. I have personally reviewed the images of this examination and agree with the resident's findings and interpretation. Interpreted by: Colton Arroyo Preliminary Report By: Basim Sadler Electronically signed By Colton Arroyo Dictated Date: 12/25/2024 9:24:29 PM Prelim Date: 12/25/2024 9:26:17 PM Sign Date: 12/25/2024 9:31:52 PM [facility]* Exam Date Time Procedure Performing Provider Status 12/25/24 8:44 PM EKG [ED AOH] - MASHA CANALES DO; Auth (Verified) ECG Final Report Sinus rhythm Electronic Signature: MASHA CANALES DO 12/25/2024 20:47:19 [facility]06-24-2024 Evaluation + Plan note Future Scheduled Tests Laboratory* Pathology Frothing Machine Operator Request 05/10/24 * A1C Hemoglobin 11/02/24 * Lipid Profile 11/02/24 * Complete Metabolic Panel 11/02/24 [facility] 06-21-2024 Note ORIGINAL FROM: [address] [address] PROCEDURE FOR: ALKA YOUNG [address] [place] [phone] Home: PID#: [id number] Exam#: [id number] : 1975 Age: 48 TO: JOANN MCNEIL [facility] [address] [place] [address] Fax: NO FAX EXAMINATION: SCREENING DIGITAL BILATERAL MAMMOGRAM WITH TOMOSYNTHESIS, 05/07/2024 8:00 am TECHNIQUE: Screening mammography of the bilateral breasts was performed with tomosynthesis. 2D standard and 3D tomosynthesis combination imaging performed through both breasts in the MLO and CC projection. Computer aided detection was utilized in the interpretation of this exam. COMPARISON: 07/26/2022, 02/26/2021 HISTORY: Breast cancer screening. FINDINGS: BREAST DENSITY: There are scattered areas of fibroglandular density. Bilateral breast implants are stable. There are benign calcifications in the left breast. There are no significant masses or calcifications. IMPRESSION: No mammographic evidence of malignancy. Continued screening with annual mammograms is recommended. Pee Jimenez risk calculations, generated with the history provided, report this patient's 10 year risk and lifetime risk for developing breast cancer at 1.1% and 5.7%, respectively. Based on this assessment tool, if the patient's calculated lifetime risk is below 20%, then the patient is considered at average risk for developing breast cancer. If the patient's calculated lifetime risk is at or above 20%, then the patient is considered high risk for developing breast cancer and may be a candidate for supplemental breast MRI screening in addition to annual mammographic screening per the [employer]. BIRADS: BI-RADS: 2: Benign RECALL: 1 year screening RECALL TYPE: mammo LETTER SENT: Normal BI-RADS 1 and 2 Interpreted by: Liyah Burgos MD Preliminary Report By: Liyah Burgos MD Electronically signed By Liyah Burgos MD Dictated Date: 05/07/2024 2:32:52 PM Prelim Date: 05/07/2024 3:16:32 PM Sign Date: 05/07/2024 3:16:32 PM Ordering Provider: JOANN MCNEIL Petroleum Inspector Supervisor: MAKAYLA HERNANDEZ RT(R) RDMS letter sent: Normal BI-RADS 1 and 2 Mammogram BI-RADS: 2 [facility]11-05-2022 Hospital Discharge instructions Patient Education 09/21/2022 13:53:18 Ankle Sprain (Adult) Ankle Sprain (Adult) An ankle sprain is a stretching or tearing of the ligaments that hold the ankle joint together. There are no broken bones. An ankle sprain is a common injury for both children and adults. It happens when the ankle turns, twists, or rolls in an awkward way. This can be caused by a sports injury. Or it can happen from doing something as simple as stepping on an uneven surface. Ligaments are made of tough connective tissue. Normally, ligaments stretch a certain amount and then go back to their normal place. A sprain happens when a ligament is forced to stretch more than thenormal amount. A severe sprain can actually tear the ligaments. If you have a severe sprain, you may have felt or heard something like a pop when you were injured. Ankle sprains are given a grade depending on whether they are mild, moderate, or severe: Grade 1 sprain. A mild sprain with minor stretching and damage to the ligament. Grade 2 sprain. A moderate sprain where the ligament is partly torn. Grade 3 sprain. The most severe kind of sprain. The ligament is completely torn. Most sprains take about 4 to 6 weeks to heal. A severe sprain can take several months to recover. Your healthcare provider may order X-rays to be sure you don t have a fracture, or broken bone. The injured area will feel sore. Swelling and pain may make it hard to walk. You may need crutches if walking is painful. Or your provider may have you use a cast boot or air splint. This will dependon the grade of ankle sprain that you have. Home care For a Grade 1 sprain, use RICE (rest, ice, compression, and elevation): Rest your ankle. Don t walk on it. Ice should be used right away to help control swelling. Place an ice pack over the injured area for20 minutes. Do this every 3 to 6 hours for the first 24 to 48 hours. Keep using ice packs to ease pain and swelling as needed. To make an ice pack, put ice cubes in a plastic bag that seals at the top. Wrap the bag in a clean, thin towel or cloth. Never put ice or an ice pack directly on the skin. The ice pack can be put right on the cast, bandage, or splint. As the ice melts, be careful that thecast, bandage, or splint doesn t get wet. If you have a boot, open it to apply an ice pack, unless told otherwise by your provider. Compression devices help to control swelling. They also keep the ankle from moving and support yourinjured ankle. These devices include dressings, bandages, and wraps. Elevate or raise your ankle above the level of your heart when sitting or lying down. This is very important for the first 48 hours. Follow the RICE guidelines for a Grade 2 sprain. This type of sprain will take longer to heal. Yourprovider may have you wear a splint, cast, or brace to keep your ankle from moving. If you have a Grade 3 sprain, you are at risk for long-term ankle instability. In rare cases, surgery may be needed. Your provider may have you wear a short leg cast or a walking boot for 2 to 3 weeks. After 48 hours, it may be helpful to apply heat for 20 minutes several times a day. You can do thiswith a heating pad or warm compress. Or you may want to go back and forth between using ice and heat. Never apply heat directly to the skin. Always wrap the heating pad or warm compress in a clean, thin towel or cloth. You may use pszf-vso-snalswq pain medicine (NSAIDS or nonsteroidal anti- inflammatory drugs) to control pain, unless another pain medicine was prescribed. Talk with your provider before using these medicines if you have chronic liver or kidney disease, or have ever had a stomach ulcer or gastrointestinal bleeding. Follow any rehabilitation exercises your provider gives you. These can help you be more flexible and improve your balance and coordination. This is helpful in preventing long-term ankle problems. Prevention To help prevent ankle sprains, it s important to have good strength, balance, and flexibility. Be sure to: Always warm up before you exercise or do something very active Be careful when walking or running on uneven or cracked surfaces Wear shoes that are in good condition and fit well Listen to your body s signals to slow down when you are in pain or tired Follow-up care Any X-rays you had today don t show any broken bones, breaks, or fractures. Sometimes fractures dont show up on the first X-ray. Bruises and sprains can sometimes hurt as much as a fracture. These injuries can take time to heal completely. If your symptoms don t get better or they get worse, talk with your healthcare provider. You may need a repeat X-ray. Follow up with your healthcare provider, or as advised. Check for any warning signs listed below. When to seek medical advice Call your healthcare provider right away if any of these occur: Fever of 100.4 F (38 C) or higher, or as directed by your healthcare provider Chills The injury doesn t seem to be healing The swelling comes back The cast or splint has a bad smell The plaster cast or splint gets wet or soft The fiberglass cast or splint gets wet and does not dry for 24 hours The pain or swelling increases, or redness appears Your toes become cold, blue, numb, or tingly The skin is discolored (looks blue, purple, or nichols), has blisters, or is irritated You re-injure your ankle [id number] [employer]. [address] [place] [address], [place] [address]. All rights reserved. This information is not intended as a substitute for professional medical care. Always follow yourhealthcare professional's instructions. Follow Up Care 09/21/2022 11:57:14 With:JOANN MCNEIL APRN-PRINTED CIRCUIT BOARD PANELS PLATER Address: [address] [facility] [place] [address] [phone] When:2-4 days [facility] 11-05-2022 Note Discharge Instructions Thank you for allowing [facility] to assist you with your healthcare needs. The following is importantdischarge information regarding your hospital visit. Diagnosis from Today's Visit Ankle sprain Ankle pain-swelling What to Do Next Instructions from Your Care Team Discharge Home Equipment - Ordered -- Crutches, 1 month(s), 09/21/22 13:53:00 EDT Discharge Home Equipment - Ordered -- Ankle Splint, 99 month(s), 09/21/22 13:53:00 EDT Post Acute Orders No qualifying data available. You Need to Schedule the Following Appointments Follow Up with JOANN MCNEIL APRN-[facility] When Within 2-4 days Where: [address] [facility] [place] [address] [phone] Allergies Animal Dander (Unknown) Grass (Unknown) Mites (Unknown) influenza virus vaccine, inactivated (Swelling, Shortness of breath) lisinopril (Tickle) Medications Please ask your primary doctor or pharmacist before taking any other medication not listed, including over the counter drugs, herbal medications, vitamins and or supplements as they may interact withyour home medications. What How Much When Instructions Last Dose Unchanged albuterol (Ventolin HFA MDI (90 mcg/ inh) inhalation aerosol) 2 puff(s) by inhalation Every 4 hours as needed for as needed for wheezing Duration: 30 Days Unchanged budesonide (budesonide 1 mg/ 2 mL inhalation suspension) See instructions Rinse sinuses daily. Unchanged busPIRone (busPIRone 5 mg oral tablet) 1 tab(s) by mouth Two (2) times a day Unchanged chlorthalidone (chlorthalidone 25 mg oral tablet) 1 tab(s) by mouth Every day Duration: 90 Days replacing the hctz Unchanged fluticasone nasal (Flonase 50 mcg/ inh nasal spray) 1 spray(s) each nostril Two (2) times a day Duration: 90 Days Unchanged lactobacillus acidophilus (Acidophilus Probiotic Blend oral capsule) 1 cap by mouth Once a day Unchanged losartan (losartan 100 mg oral tablet) 1 tab(s) by mouth Once a day Duration: 90 Days Unchanged meloxicam (meloxicam 15 mg oral tablet) 1 tab(s) by mouth Once a day Unchanged Misc Medication (Allergy Injection) Unchanged montelukast (Singulair 10 mg oral tablet) 1 tab(s) by mouth Once a day (in the morning) Duration: 90 Days Please take this list to your next doctor s visit. Bring all medications you take, including over the counter medications, herbals and other supplements with you to your doctor s visit. Patients and families are reminded to discard old lists and to update any records with all medication providers or retail pharmacies. Education Materials Ankle Sprain (Adult) An ankle sprain is a stretching or tearing of the ligaments that hold the ankle joint together. There are no broken bones. An ankle sprain is a common injury for both children and adults. It happens when the ankle turns, twists, or rolls in an awkward way. This can be caused by a sports injury. Or it can happen from doing something as simple as stepping on an uneven surface. Ligaments are made of tough connective tissue. Normally, ligaments stretch a certain amount and then go back to their normal place. A sprain happens when a ligament is forced to stretch more than thenormal amount. A severe sprain can actually tear the ligaments. If you have a severe sprain, you may have felt or heard something like a pop when you were injured. Ankle sprains are given a grade depending on whether they are mild, moderate, or severe: Grade 1 sprain. A mild sprain with minor stretching and damage to the ligament. Grade 2 sprain. A moderate sprain where the ligament is partly torn. Grade 3 sprain. The most severe kind of sprain. The ligament is completely torn. Most sprains take about 4 to 6 weeks to heal. A severe sprain can take several months to recover. Your healthcare provider may order X-rays to be sure you don t have a fracture, or broken bone. The injured area will feel sore. Swelling and pain may make it hard to walk. You may need crutches if walking is painful. Or your provider may have you use a cast boot or air splint. This will dependon the grade of ankle sprain that you have. Home care For a Grade 1 sprain, use RICE (rest, ice, compression, and elevation): Rest your ankle. Don t walk on it. Ice should be used right away to help control swelling. Place an ice pack over the injured area for20 minutes. Do this every 3 to 6 hours for the first 24 to 48 hours. Keep using ice packs to ease pain and swelling as needed. To make an ice pack, put ice cubes in a plastic bag that seals at the top. Wrap the bag in a clean, thin towel or cloth. Never put ice or an ice pack directly on the skin. The ice pack can be put right on the cast, bandage, or splint. As the ice melts, be careful that thecast, bandage, or splint doesn t get wet. If you have a boot, open it to apply an ice pack, unless told otherwise by your provider. Compression devices help to control swelling. They also keep the ankle from moving and support yourinjured ankle. These devices include dressings, bandages, and wraps. Elevate or raise your ankle above the level of your heart when sitting or lying down. This is very important for the first 48 hours. Follow the RICE guidelines for a Grade 2 sprain. This type of sprain will take longer to heal. Yourprovider may have you wear a splint, cast, or brace to keep your ankle from moving. If you have a Grade 3 sprain, you are at risk for long-term ankle instability. In rare cases, surgery may be needed. Your provider may have you wear a short leg cast or a walking boot for 2 to 3 weeks. After 48 hours, it may be helpful to apply heat for 20 minutes several times a day. You can do thiswith a heating pad or warm compress. Or you may want to go back and forth between using ice and heat. Never apply heat directly to the skin. Always wrap the heating pad or warm compress in a clean, thin towel or cloth. You may use jyub-hkd-bhtfkyc pain medicine (NSAIDS or nonsteroidal anti- inflammatory drugs) to control pain, unless another pain medicine was prescribed. Talk with your provider before using these medicines if you have chronic liver or kidney disease, or have ever had a stomach ulcer or gastrointestinal bleeding. Follow any rehabilitation exercises your provider gives you. These can help you be more flexible and improve your balance and coordination. This is helpful in preventing long-term ankle problems. Prevention To help prevent ankle sprains, it s important to have good strength, balance, and flexibility. Be sure to: Always warm up before you exercise or do something very active Be careful when walking or running on uneven or cracked surfaces Wear shoes that are in good condition and fit well Listen to your body s signals to slow down when you are in pain or tired Follow-up care Any X-rays you had today don t show any broken bones, breaks, or fractures. Sometimes fractures dont show up on the first X-ray. Bruises and sprains can sometimes hurt as much as a fracture. These injuries can take time to heal completely. If your symptoms don t get better or they get worse, talk with your healthcare provider. You may need a repeat X-ray. Follow up with your healthcare provider, or as advised. Check for any warning signs listed below. When to seek medical advice Call your healthcare provider right away if any of these occur: Fever of 100.4 F (38 C) or higher, or as directed by your healthcare provider Chills The injury doesn t seem to be healing The swelling comes back The cast or splint has a bad smell The plaster cast or splint gets wet or soft The fiberglass cast or splint gets wet and does not dry for 24 hours The pain or swelling increases, or redness appears Your toes become cold, blue, numb, or tingly The skin is discolored (looks blue, purple, or nichols), has blisters, or is irritated You re-injure your ankle 4901-2675 [employer]. [address] [place] [address]. All rights reserved. This information is not intended as a substitute for professional medical care. Always follow yourhealthcare professional's instructions. Additional Information VACCINATE! IT SAVES LIVES! Members of the community who have not yet received the COVID-19 vaccine and would like to receive it can visit one of [facility] vaccine clinics. There are many vaccine clinic locations within the [facility]. For locations and available times, please visit [email or web address]. It is important to note that some COVID mobile vaccine clinics are held outdoors and may be canceled in rainy orstormy conditions. To learn more about pediatric vaccinations (ages 5-11), we invite you to visit the [facility] webpage. [email or web address] learn more about the COVID-19 vaccine, we invite you to visit the [facility] website for a list of frequently asked questions. [email or web address] [facility] Patient Portal Access Instructions: Stay connected with your healthcare team and access your personal medical information anytime with the [facility]. If you would like a full copy of your medical records please contact the [facility] Medical Records Department Friday through Friday between 8a.m. and 4:30p.m. Please follow the directions below to access the portal: 1.Access the email account you provided upon registration to the [facility].2.Look for an invitation email from [facility].3.Open the email and access the invitation link: Accept Invitation to [facility]4.Fill in the required mujica to create your account. Sign into [email or web address] with your username and password that you created in the above steps to stay up to date. You can then view a summary of results, a summary of your visits, and the ability to download your summaries to your computer or send the information securely to a physician. Remember that your healthcare information is confidential, so carefully consider who you will allow to register on the [facility] Patient Portal for access to your information. You can also access the [facility] Patient Portal on the [employer] kiah. Simply click on Health Records under [employer] and then click on the [facility] logo. HOW TO SAFELY DISPOSE OF PRESCRIPTION MEDICATIONS Please use one of the following methods to safely dispose of your unused medications. 1.Use a drug disposal kit: the drug disposal pouch allows you to safely discard your old and unuseddrugs. Ask your nurse to give you one when you are discharged.2.Visit a local take-back location: Many local pharmacies and police departments have programs that collect old and unwanted prescriptiondrugs. Call your local pharmacy or go to http://bit.ly/0K0Cl8n to find one close to you.3.Make use of household items: Use cat litter or old coffee grounds to dispose medications if other options arenot available. Mix your drugs with these household products, seal them in an airtight container andthrow it into the garbage. Call [facility]: [phone] to be sure your drugs can be disposed of in this way. Some medicines may require a different approach.4.Never flush your medications down the toilet. IF YOU HAVE BEEN PRESCRIBED AN OPIOIDS FOR PAIN If you have been prescribed an opioid (such as hydrocodone, oxycodone or morphine), it is critical to understand the possible side effects and risks of opioid pain medications. Even when taken as directed, opioids can have several side effects including: Tolerance, meaning you might need to take more of a medication for the same pain relief. Nausea, vomiting and/or constipation. Sleepiness, dizziness, dry mouth, confusion, depression or itching. Physical dependence, meaning you have withdrawal symptoms when a medication is stopped ? this can develop within a few days. KNOW YOUR RESPONSIBILITIES It is important to know exactly how much and how often to take the opioid pain medications you are prescribed. Never take opioids in higher amounts or more often than prescribed. Do not combine opioids with alcohol or other drugs that cause drowsiness, such as benzodiazepines, also known as benzos,including diazepam and alprazolam, muscle relaxants or sleep aids. Never sell or share prescriptionopioids. This is illegal. Store opioids in a secure place and out of reach of others (including children, family, friends and visitors). The last page(s) of this document has been signed and retained as a CHART COPY Signatures Patient Education Materials Ankle Sprain (Adult) Medication Leaflets My discharge plan and instructions have been reviewed and explained to me and I,ALKA GARRIDO understand my current condition and have read and understand these discharge instructions. I have received a written copy of the plan/instructions. If I have questions, I am aware that I should contact my doctor. 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 HISTORY: ORDERING SYSTEM PROVIDED HISTORY: Reason for Exam: pain FINDINGS: Minimal enthesopathy is noted at the Achilles insertion. There is otherwise no bone, joint or soft tissue abnormality. IMPRESSION: No acute finding. Interpreted by: Hugo Giraldo MD Preliminary Report By: Hugo Giraldo MD Electronically signed By Hugo Giraldo MD Dictated Date: 09/21/2022 1:03:46 PM Prelim Date: 09/21/2022 1:04:27 PM Sign Date: 09/21/2022 1:04:27 PM Ordering Provider: RAMBO PETERSON [facility]11-05-2022 Note ORIGINAL EXAMINATION: 6 x-ray views of the left foot and the left ankle 09/21/2022 1:02 pm COMPARISON: None. HISTORY: ORDERING SYSTEM PROVIDED HISTORY: Reason for Exam: pain FINDINGS: Minimal enthesopathy is noted at the Achilles insertion. There is otherwise no bone, joint or soft tissue abnormality. IMPRESSION: No acute finding. Interpreted by: Hugo Giraldo MD Preliminary Report By: Hugo Giraldo MD Electronically signed By Hugo Giraldo MD Dictated Date: 09/21/2022 1:03:46 PM Prelim Date: 09/21/2022 1:04:27 PM Sign Date: 09/21/2022 1:04:27 PM [facility] Patient Education 07/29/2022 17:50:30 Hypertension, Established Established High Blood Pressure High blood pressure (hypertension) is a chronic disease. Often, healthcare providers don t know what causes it. But it can be caused by certain health conditions and medicines. If you have high blood pressure, you may not have any symptoms. If you do have symptoms, they may include headache, dizziness, changes in your vision, chest pain, and shortness of breath. But even without symptoms, high blood pressure that s not treated raises your risk for heart attack, heart failure, and stroke. High blood pressure is a serious health risk and shouldn t be ignored. Blood pressure measurements are given as 2 numbers. Systolic blood pressure is the upper number. This is the pressure when the heart contracts. Diastolic blood pressure is the lower number. This is the pressure when the heart relaxes between beats. You will see your blood pressure readings written together. For example, a person with a systolic pressure of 118 and a diastolic pressure of 78 will have 118/78 written in the medical record. Blood pressure is categorized as normal, elevated, or stage 1 or stage 2 high blood pressure: Normal blood pressure is systolic of less than 120 and diastolic of less than 80 (120/80) Elevated blood pressure is systolic of 120 to 129 and diastolic less than 80 Stage 1 high blood pressure is systolic is 130 to 139 or diastolic between 80 to 89 Stage 2 high blood pressure is when systolic is 140 or higher or the diastolic is 90 or higher Home care If you have high blood pressure, follow these home care guidelines to help lower your blood pressure. If you are taking medicines for high blood pressure, these methods may reduce or end your need for medicines in the future. Start a weight-loss program if you are overweight. Cut back on how much salt you get in your diet. Here s how to do this: oDon t eat foods that have a lot of salt. These include olives, pickles, smoked meats, and salted potato chips. oDon t add salt to your food at the table. oUse only small amounts of salt when cooking. Start an exercise program. Talk with your healthcare provider about the type of exercise program that would be best for you. It doesn't have to be hard. Even brisk walking for 20 minutes 3 times a week is a good form of exercise. Don t take medicines that stimulate the heart. This includes many pnsb-evv-ucoqmeg cold and sinus decongestant pills and sprays, as well as diet pills. Check the warnings about high blood pressure onthe label. Before buying any eamj-cxq-eehbacv medicines or supplements, always ask the pharmacist about the product's potential interaction with your high blood pressure and your high blood pressure medicines. Stimulants such as amphetamine or cocaine could be deadly for someone with high blood pressure. Never take these. Limit how much caffeine you get in your diet. Switch to caffeine-free products. Stop smoking. If you are a long-time smoker, this can be hard. Talk to your healthcare provider about medicines and nicotine replacement options to help you. Also, enroll in a stop-smoking program tomake it more likely that you will quit for good. Learn how to handle stress. This is an important part of any program to lower blood pressure. Learnabout relaxation methods like meditation, yoga, or biofeedback. If your provider prescribed medicines, take them exactly as directed. Missing doses may cause your blood pressure get out of control. If you miss a dose or doses, check with your healthcare provider or pharmacist about what to do. Consider buying an automatic blood pressure machine to check your blood pressure at home. Ask your provider for a recommendation. You can get one of these at most pharmacies. The [employer] recommends the following guidelines for home blood pressure monitoring: Don't smoke or drink coffee for 30 minutes before taking your blood pressure. Go to the bathroom before the test. Relax for 5 minutes before taking the measurement. Sit with your back supported (don't sit on a couch or soft chair); keep your feet on the floor uncrossed. Place your arm on a solid flat surface (like a table) with the upper part of the arm at heartlevel. Place the middle of the cuff directly above the bend of the elbow. Check the monitor's instruction manual for an illustration. Take multiple readings. When you measure, take 2 to 3 readings one minute apart and record all of the results. Take your blood pressure at the same time every day, or as your healthcare provider recommends. Record the date, time, and blood pressure reading. Take the record with you to your next medical appointment. If your blood pressure monitor has a built-in memory, simply take the monitor with you to your next appointment. Call your provider if you have several high readings. Don't be frightened by a single high blood pressure reading, but if you get several high readings, check in with your healthcare provider. Note: When blood pressure reaches a systolic (top number) of 180 or higher OR diastolic (bottom number) of 110 or higher, seek emergency medical treatment. Follow-up care You will need to see your healthcare provider regularly. This is to check your blood pressure and to make changes to your medicines. Make a follow-up appointment as directed. Bring the record of yourhome blood pressure readings to the appointment. When to seek medical advice Call your healthcare provider right away if any of these occur: Blood pressure reaches a systolic (upper number) of 180 or higher OR a diastolic (bottom number) of110 or higher Chest pain or shortness of breath Severe headache Throbbing or rushing sound in the ears Nosebleed Sudden severe pain in your belly (abdomen) Extreme drowsiness, confusion, or fainting Dizziness or spinning sensation (vertigo) Weakness of an arm or leg or one side of the face You have problems speaking or seeing 9940-8104 [employer]. [address] [place] [address]. All rights reserved. This information is not intended as a substitute for professional medical care. Always follow yourhealthcare professional's instructions. 07/29/2022 17:50:26 Impetigo Impetigo Impetigo is a common bacterial infection of the skin that can appear on many parts of the body. It can happen to anyone, of any age, but is more common in children. For this reason, it used to be called school sores. Causes It s normal to get scrapes on your body from activity or from scratching your skin. The skin normally has bacteria on it. Sometimes an impetigo infection can start on healthy skin. But it usually starts when there is an injury to the skin, or break in the skin. Although nothing usually happens, thebacteria normally on the skin can cause infection. This is the most common way people get impetigo. Impetigo is very contagious. So once there is an infection, it needs to be treated so it doesn't get worse, spread to other areas, or to other people. Impetigo can easily be passed to other family members, friends, schoolmates, or co-workers, through scratching, rubbing, or touching an infected area. Common causes include: After a cold Bites From another infected person Injury to skin Insect bites Other skin problems that are infected, such as eczema Scratches Symptoms There is often a skin injury like a scratch, scrape, or insect bite that may have gone unnoticed orbeen ignored before the infection began. Symptoms of impetigo include: Red, inflamed area or rash One or many red bumps Bumps that turn into blisters filled with yellow fluid or pus Blisters break or leak causing honey-colored crusting or scabbing over the area Skin sores that spread to other surrounding areas Home care The following guidelines will help you care for your infection at home. Wound care Trim fingernails and cover sores with an adhesive bandage, if needed, to prevent scratching. Picking at the sores may leave a scar. If the infection is on or around your lips, don't lick or chew on the sores. This will make the infection worse. If a bandage or dressing is used, you can put a nonstick dressing over it. Wash your hands and your child s hands often. This will avoid spreading the infection to other parts of the body and to other people. Do not share the infected person s washcloths, towels, pillows, sheets, or clothes with others. Wash these items in hot water before using again. Clean the area several times a day. You don t want to scrub the area. The best way to do this is tosoak the sores in warm, soapy water until they get soft enough to be wiped away. This will help remove the crust that forms from the dried liquid. In areas that you can t soak, like the mouth or face, you can put a clean, warm washcloth over the infected are for 5 to 10 minutes at a time, until thescabs soften enough to remove. Medicines You can use xxfh-qil-nymikqn medicine as directed based on age and weight for pain, fever, fussiness, or discomfort, unless another medicine was prescribed. In infants ages 6 months and older, you may use ibuprofen as well as acetaminophen. You can alternate them, or use both together. They work dif ferently and are a different class of medicines, so taking them together is not an overdose. If youor your child has chronic liver or kidney disease or ever had a stomach ulcer or gastrointestinal bleeding, talk with your healthcare provider before using these medicines. Also talk with your healthcare provider if your child is taking blood-thinner medicines. Do not give aspirin to your child. Aspirin should never be used in children ages 18 and younger whois ill with a fever. It may cause severe disease or . Impetigo can often be cured with topical creams. Apply these as directed by your healthcare provider. If you were given oral antibiotics, take them until they are used up. It is important to finish theantibiotics even if the wound looks better to make sure the infection has cleared. Follow-up care Follow up with your healthcare provider if the sores continue to spread after 3 days of treatment. It will take about 7 to 10 days to heal completely. Your child should stay out of school until completing 2 full days of antibiotic treatment. When to seek medical advice Call your healthcare provider right away if any of the following occur: Fever of 100.4 F (38 C) or higher, or as directed Increased amounts of fluid or pus coming from the sores Increasing number of sores or spreading areas of redness after 2 days of treatment with antibiotics Increasing swelling or pain Loss of appetite or vomiting Unusual drowsiness, weakness, or change in behavior 2630-2524 [employer]. [address] [place] [address]. All rights reserved. This information is not intended as a substitute for professional medical care. Always follow yourhealthcare professional's instructions. Follow Up Care 07/29/2022 16:08:32 With:JOANN MCNEIL Address: [address] [place] [address]- [phone] Business (1) When:2-4 days Comments:Schedule appointment as soon as possibleFollow up for blood pressurefollow up for viral swab if develops vesicular lesionwarm soaks to area 4x/day [facility] 09-12-2022 Emergency department Discharge summary Discharge Instructions Thank you for allowing [facility] to assist you with your healthcare needs. The following is importantdischarge information regarding your hospital visit. Diagnosis from Today's Visit Impetigo Hypertension Rash What to Do Next Instructions from Your Care Team No qualifying data available. Post Acute Orders No qualifying data available. You Need to Schedule the Following Appointments Follow Up with JOANN MCNEIL When Within 2-4 days Why: Schedule appointment as soon as possible Follow up for blood pressure follow up for viral swab if develops vesicular lesion warm soaks to area 4x/day Where: [address] [place] [address]- [phone] Business (1) Allergies Animal Dander (Unknown) Grass (Unknown) Mites (Unknown) influenza virus vaccine, inactivated (Swelling, Shortness of breath) lisinopril (Tickle) Medications Please ask your primary doctor or pharmacist before taking any other medication not listed, including over the counter drugs, herbal medications, vitamins and or supplements as they may interact withyour home medications. What How Much When Why Instructions Last Dose New doxycycline (doxycycline hyclate 100 mg oral tablet) 1 tab(s) by mouth Two (2) times a day Impetigo Hypertension Duration: 7 Days may take with food to minimize abdominal discomfort Printed Prescription New mupirocin topical (mupirocin 2% topical ointment) 1 application Topical Three (3) times a day Impetigo Hypertension Printed Prescription Unchanged albuterol (Ventolin HFA MDI (90 mcg/ inh) inhalation aerosol) 2 puff(s) by inhalation Every 4 hours as needed for as needed for wheezing Duration: 30 Days Unchanged budesonide (budesonide 1 mg/ 2 mL inhalation suspension) See instructions Rinse sinuses daily. Unchanged busPIRone (busPIRone 5 mg oral tablet) 1 tab(s) by mouth Two (2) times a day Unchanged chlorthalidone (chlorthalidone 25 mg oral tablet) 1 tab(s) by mouth Every day Duration: 90 Days replacing the hctz Unchanged fluticasone nasal (Flonase 50 mcg/ inh nasal spray) 1 spray(s) each nostril Two (2) times a day Duration: 90 Days Unchanged lactobacillus acidophilus (Acidophilus Probiotic Blend oral capsule) 1 cap by mouth Once a day Unchanged losartan (losartan 100 mg oral tablet) 1 tab(s) by mouth Once a day Unchanged meloxicam (meloxicam 15 mg oral tablet) 1 tab(s) by mouth Once a day Unchanged montelukast (Singulair 10 mg oral tablet) 1 tab(s) by mouth Once a day (in the morning) Duration: 90 Days Please take this list to your next doctor s visit. Bring all medications you take, including over the counter medications, herbals and other supplements with you to your doctor s visit. Patients and families are reminded to discard old lists and to update any records with all medication providers or retail pharmacies. Education Materials Established High Blood Pressure High blood pressure (hypertension) is a chronic disease. Often, healthcare providers don t know what causes it. But it can be caused by certain health conditions and medicines. If you have high blood pressure, you may not have any symptoms. If you do have symptoms, they may include headache, dizziness, changes in your vision, chest pain, and shortness of breath. But even without symptoms, high blood pressure that s not treated raises your risk for heart attack, heart failure, and stroke. High blood pressure is a serious health risk and shouldn t be ignored. Blood pressure measurements are given as 2 numbers. Systolic blood pressure is the upper number. This is the pressure when the heart contracts. Diastolic blood pressure is the lower number. This is the pressure when the heart relaxes between beats. You will see your blood pressure readings written together. For example, a person with a systolic pressure of 118 and a diastolic pressure of 78 will have 118/78 written in the medical record. Blood pressure is categorized as normal, elevated, or stage 1 or stage 2 high blood pressure: Normal blood pressure is systolic of less than 120 and diastolic of less than 80 (120/80) Elevated blood pressure is systolic of 120 to 129 and diastolic less than 80 Stage 1 high blood pressure is systolic is 130 to 139 or diastolic between 80 to 89 Stage 2 high blood pressure is when systolic is 140 or higher or the diastolic is 90 or higher Home care If you have high blood pressure, follow these home care guidelines to help lower your blood pressure. If you are taking medicines for high blood pressure, these methods may reduce or end your need for medicines in the future. Start a weight-loss program if you are overweight. Cut back on how much salt you get in your diet. Here s how to do this: oDon t eat foods that have a lot of salt. These include olives, pickles, smoked meats, and salted potato chips. oDon t add salt to your food at the table. oUse only small amounts of salt when cooking. Start an exercise program. Talk with your healthcare provider about the type of exercise program that would be best for you. It doesn't have to be hard. Even brisk walking for 20 minutes 3 times a week is a good form of exercise. Don t take medicines that stimulate the heart. This includes many fiky-qhf-urvzzqn cold and sinus decongestant pills and sprays, as well as diet pills. Check the warnings about high blood pressure onthe label. Before buying any xwgp-kip-anemrxa medicines or supplements, always ask the pharmacist about the product's potential interaction with your high blood pressure and your high blood pressure medicines. Stimulants such as amphetamine or cocaine could be deadly for someone with high blood pressure. Never take these. Limit how much caffeine you get in your diet. Switch to caffeine-free products. Stop smoking. If you are a long-time smoker, this can be hard. Talk to your healthcare provider about medicines and nicotine replacement options to help you. Also, enroll in a stop-smoking program tomake it more likely that you will quit for good. Learn how to handle stress. This is an important part of any program to lower blood pressure. Learnabout relaxation methods like meditation, yoga, or biofeedback. If your provider prescribed medicines, take them exactly as directed. Missing doses may cause your blood pressure get out of control. If you miss a dose or doses, check with your healthcare provider or pharmacist about what to do. Consider buying an automatic blood pressure machine to check your blood pressure at home. Ask your provider for a recommendation. You can get one of these at most pharmacies. The [employer] recommends the following guidelines for home blood pressure monitoring: Don't smoke or drink coffee for 30 minutes before taking your blood pressure. Go to the bathroom before the test. Relax for 5 minutes before taking the measurement. Sit with your back supported (don't sit on a couch or soft chair); keep your feet on the floor uncrossed. Place your arm on a solid flat surface (like a table) with the upper part of the arm at heartlevel. Place the middle of the cuff directly above the bend of the elbow. Check the monitor's instruction manual for an illustration. Take multiple readings. When you measure, take 2 to 3 readings one minute apart and record all of the results. Take your blood pressure at the same time every day, or as your healthcare provider recommends. Record the date, time, and blood pressure reading. Take the record with you to your next medical appointment. If your blood pressure monitor has a built-in memory, simply take the monitor with you to your next appointment. Call your provider if you have several high readings. Don't be frightened by a single high blood pressure reading, but if you get several high readings, check in with your healthcare provider. Note: When blood pressure reaches a systolic (top number) of 180 or higher OR diastolic (bottom number) of 110 or higher, seek emergency medical treatment. Follow-up care You will need to see your healthcare provider regularly. This is to check your blood pressure and to make changes to your medicines. Make a follow-up appointment as directed. Bring the record of yourhome blood pressure readings to the appointment. When to seek medical advice Call your healthcare provider right away if any of these occur: Blood pressure reaches a systolic (upper number) of 180 or higher OR a diastolic (bottom number) of110 or higher Chest pain or shortness of breath Severe headache Throbbing or rushing sound in the ears Nosebleed Sudden severe pain in your belly (abdomen) Extreme drowsiness, confusion, or fainting Dizziness or spinning sensation (vertigo) Weakness of an arm or leg or one side of the face You have problems speaking or seeing [phone] [employer]. [address] [place] [address], [place] [id number]. All rights reserved. This information is not intended as a substitute for professional medical care. Always follow yourhealthcare professional's instructions. Impetigo Impetigo is a common bacterial infection of the skin that can appear on many parts of the body. It can happen to anyone, of any age, but is more common in children. For this reason, it used to be called school sores. Causes It s normal to get scrapes on your body from activity or from scratching your skin. The skin normally has bacteria on it. Sometimes an impetigo infection can start on healthy skin. But it usually starts when there is an injury to the skin, or break in the skin. Although nothing usually happens, thebacteria normally on the skin can cause infection. This is the most common way people get impetigo. Impetigo is very contagious. So once there is an infection, it needs to be treated so it doesn't get worse, spread to other areas, or to other people. Impetigo can easily be passed to other family members, friends, schoolmates, or co-workers, through scratching, rubbing, or touching an infected area. Common causes include: After a cold Bites From another infected person Injury to skin Insect bites Other skin problems that are infected, such as eczema Scratches Symptoms There is often a skin injury like a scratch, scrape, or insect bite that may have gone unnoticed orbeen ignored before the infection began. Symptoms of impetigo include: Red, inflamed area or rash One or many red bumps Bumps that turn into blisters filled with yellow fluid or pus Blisters break or leak causing honey-colored crusting or scabbing over the area Skin sores that spread to other surrounding areas Home care The following guidelines will help you care for your infection at home. Wound care Trim fingernails and cover sores with an adhesive bandage, if needed, to prevent scratching. Picking at the sores may leave a scar. If the infection is on or around your lips, don't lick or chew on the sores. This will make the infection worse. If a bandage or dressing is used, you can put a nonstick dressing over it. Wash your hands and your child s hands often. This will avoid spreading the infection to other parts of the body and to other people. Do not share the infected person s washcloths, towels, pillows, sheets, or clothes with others. Wash these items in hot water before using again. Clean the area several times a day. You don t want to scrub the area. The best way to do this is tosoak the sores in warm, soapy water until they get soft enough to be wiped away. This will help remove the crust that forms from the dried liquid. In areas that you can t soak, like the mouth or face, you can put a clean, warm washcloth over the infected are for 5 to 10 minutes at a time, until thescabs soften enough to remove. Medicines You can use jlji-guh-vfsqzyg medicine as directed based on age and weight for pain, fever, fussiness, or discomfort, unless another medicine was prescribed. In infants ages 6 months and older, you may use ibuprofen as well as acetaminophen. You can alternate them, or use both together. They work dif ferently and are a different class of medicines, so taking them together is not an overdose. If youor your child has chronic liver or kidney disease or ever had a stomach ulcer or gastrointestinal bleeding, talk with your healthcare provider before using these medicines. Also talk with your healthcare provider if your child is taking blood-thinner medicines. Do not give aspirin to your child. Aspirin should never be used in children ages 18 and younger whois ill with a fever. It may cause severe disease or . Impetigo can often be cured with topical creams. Apply these as directed by your healthcare provider. If you were given oral antibiotics, take them until they are used up. It is important to finish theantibiotics even if the wound looks better to make sure the infection has cleared. Follow-up care Follow up with your healthcare provider if the sores continue to spread after 3 days of treatment. It will take about 7 to 10 days to heal completely. Your child should stay out of school until completing 2 full days of antibiotic treatment. When to seek medical advice Call your healthcare provider right away if any of the following occur: Fever of 100.4 F (38 C) or higher, or as directed Increased amounts of fluid or pus coming from the sores Increasing number of sores or spreading areas of redness after 2 days of treatment with antibiotics Increasing swelling or pain Loss of appetite or vomiting Unusual drowsiness, weakness, or change in behavior [id number] [employer]. [address] [place] [address]. All rights reserved. This information is not intended as a substitute for professional medical care. Always follow yourhealthcare professional's instructions. Additional Information VACCINATE! IT SAVES LIVES! Members of the community who have not yet received the COVID-19 vaccine and would like to receive it can visit one of [facility] vaccine clinics. There are many vaccine clinic locations within the [facility]. For locations and available times, please visit [email or web address]. It is important to note that some COVID mobile vaccine clinics are held outdoors and may be canceled in rainy orstormy conditions. To learn more about pediatric vaccinations (ages 5-11), we invite you to visit the [facility] webpage. [email or web address] learn more about the COVID-19 vaccine, we invite you to visit the [facility] website for a list of frequently asked questions. [email or web address] [facility] Access Instructions: Stay connected with your healthcare team and access your personal medical information anytime with the [facility]. If you would like a full copy of your medical records please contact the [facility] Medical Records Department Friday through Friday between 8a.m. and 4:30p.m. Please follow the directions below to access the portal: 1.Access the email account you provided upon registration to the hospital.2.Look for an invitation email from [facility].3.Open the email and access the invitation link: Accept Invitation to [facility]4.Fill in the required mujica to create your account. Sign into [email or web address] with your username and password that you created in the above steps to stay up to date. You can then view a summary of results, a summary of your visits, and the ability to download your summaries to your computer or send the information securely to a physician. Remember that your healthcare information is confidential, so carefully consider who you will allow to register on the [facility] Patient Portal for access to your information. You can also access the [facility] Patient Portal on the [employer]. Simply click on Health Records under [employer] and then click on the [facility] logo. HOW TO SAFELY DISPOSE OF PRESCRIPTION MEDICATIONS Please use one of the following methods to safely dispose of your unused medications. 1.Use a drug disposal kit: the drug disposal pouch allows you to safely discard your old and unuseddrugs. Ask your nurse to give you one when you are discharged.2.Visit a local take-back location: Many local pharmacies and police departments have programs that collect old and unwanted prescriptiondrugs. Call your local pharmacy or go to http://Picateers.Road Hero/9Q2Fx8u to find one close to you.3.Make use of household items: Use cat litter or old coffee grounds to dispose medications if other options arenot available. Mix your drugs with these household products, seal them in an airtight container andthrow it into the garbage. Call [facility]: [phone] to be sure your drugs can be disposed of in this way. Some medicines may require a different approach.4.Never flush your medications down the toilet. IF YOU HAVE BEEN PRESCRIBED AN OPIOIDS FOR PAIN If you have been prescribed an opioid (such as hydrocodone, oxycodone or morphine), it is critical to understand the possible side effects and risks of opioid pain medications. Even when taken as directed, opioids can have several side effects including: Tolerance, meaning you might need to take more of a medication for the same pain relief. Nausea, vomiting and/or constipation. Sleepiness, dizziness, dry mouth, confusion, depression or itching. Physical dependence, meaning you have withdrawal symptoms when a medication is stopped ? this can develop within a few days. KNOW YOUR RESPONSIBILITIES It is important to know exactly how much and how often to take the opioid pain medications you are prescribed. Never take opioids in higher amounts or more often than prescribed. Do not combine opioids with alcohol or other drugs that cause drowsiness, such as benzodiazepines, also known as benzos,including diazepam and alprazolam, muscle relaxants or sleep aids. Never sell or share prescriptionopioids. This is illegal. Store opioids in a secure place and out of reach of others (including children, family, friends and visitors). The last page(s) of this document has been signed and retained as a CHART COPY Signatures Patient Education Materials Hypertension, Established Impetigo Medication Leaflets My discharge plan and instructions have been reviewed and explained to me and I,ALKA GARRIDO understand my current condition and have read and understand these discharge instructions. I have received a written copy of the plan/instructions. If I have questions, I am aware that I should contact my doctor. Patient/Facility Sales And Admin Signature: Date/Time: Relationship to Patient: Witness Name/Signature: Date/Time: [facility]09-09-2022 Note ORIGINAL FROM: [place] [id number] [place], [place] [address] PROCEDURE FOR: ALKA GARRIDO [address] [place] [id number] Home: PID#: [id number] Exam#: [id number] : 1975 Age: 46 TO: DORIE REYNOLDS [facility] [address] [facility] [address] [place], [place] [address] Fax: NO FAX EXAMINATION: ULTRASOUND OF THE RIGHT AXILLA 07/10/2022 7:54 am TECHNIQUE: Color flow and real-time targeted ultrasound of the right axilla region of interest was performed. COMPARISON: Concurrent mammography of the same day. Prior mammograms dated 02/26/2021, 03/10/2019. HISTORY: ORDERING SYSTEM PROVIDED HISTORY: Reason for Exam: 1 cm lump in midline axillary FINDINGS: There are no significant sonographic findings to correlate with the palpable abnormality. IMPRESSION: There are no significant sonographic findings to correlate with the palpable abnormality. Clinical follow up is recommended. The patient may return to annual mammographic screening. There is no sonographic evidence of malignancy. BIRADS: MAMMOGRAM BI-RADS: 1: Negative RECALL: return to screening RECALL TYPE: mammo LETTER SENT: Normal BI-RADS 1 and 2 Interpreted by: Tomer Salamanca MD Preliminary Report By: Tomer Salamanca MD Electronically signed By Tomer Salamanca MD Dictated Date: 07/26/2022 9:49:29 AM Prelim Date: 07/26/2022 9:51:15 AM Sign Date: 07/26/2022 9:51:15 AM Ordering Provider: DORIE REYNOLDS CLINICAL: RIGHT AXILLA PALPABLE LUMP. Petroleum Inspector Supervisor: MAKAYLA CHANG(Elizabeth) RDMS letter sent: Normal BI-RADS 1 and 2 Ultrasound BI-RADS: 1 Negative [facility]09-09-2022 Note ORIGINAL EXAMINATION: LEFT UPPER QUADRANT ULTRASOUND 07/26/2022 9:26 am COMPARISON: None. HISTORY: ORDERING SYSTEM PROVIDED HISTORY: Reason for Exam: luq pain FINDINGS: SPLEEN: The spleen demonstrates normal echogenicity. No focal lesion is appreciated. The spleen is nonenlarged measuring 8.9 x 3.1 x 3.5 cm. LEFT KIDNEY: The left kidney is grossly unremarkable without evidence of hydronephrosis. The left kidney measures 9.6 x 5.6 x 4.4 cm. OTHER: No evidence of left upper quadrant ascites. IMPRESSION: Unremarkable left upper quadrant ultrasound. Interpreted by: Tomer Salamanca MD Preliminary Report By: Tomer Salamanca MD Electronically signed By Tomer Salamanca MD Dictated Date: 07/26/2022 9:51:23 AM Prelim Date: 07/26/2022 9:52:43 AM Sign Date: 07/26/2022 9:52:43 AM Ordering Provider: JOANN MCNEIL [facility]09-09-2022 Note ORIGINAL FROM: [facility] [address] [place], [place] [address] PROCEDURE FOR: ALKA GARRIDO [address] [place] [address] Home: PID#: [id number] Exam#: [id number] : 1975 Age: 46 TO: DORIEJACOB REYNOLDS [facility] [address] [facility] [address] [place] [address] Fax: NO FAX EXAMINATION: DIAGNOSTIC BILATERAL MAMMOGRAM WITH TOMOSYNTHESIS, 07/10/2022 7:54 am TECHNIQUE: Tomosynthesis was performed as part of the diagnostic bilateral mammogram. 2D standard and 3D tomosynthesis combination imaging performed. Current study was also evaluated with a Computer Aided Detection (CAD) system. COMPARISON: Prior mammography dated 02/26/2021, 03/10/2019. HISTORY: ORDERING SYSTEM PROVIDED HISTORY: Reason for Exam: 1 cm lump in midline axillary FINDINGS: BREAST DENSITY: Scattered fibroglandular tissue. Stable focal asymmetries are seen of the breasts bilaterally. Benign calcification is seen of the left breast. Bilateral breast implants are intact. There are no significant masses or calcifications. There has been no significant interval change. No axillary lesion is appreciated on mammography. An ultrasound has been performed and will be reported separately. IMPRESSION: No mammographic evidence of malignancy. Continued screening with annual mammograms is recommended. BIRADS: MAMMOGRAM BI-RADS: 2: Benign finding RECALL: 1 year screening RECALL TYPE: mammo LETTER SENT: Normal BI-RADS 1 and 2 Interpreted by: Tomer Salamanca MD Preliminary Report By: Tomer Salamanca MD Electronically signed By Tomer Salamanca MD Dictated Date: 07/26/2022 9:47:30 AM Prelim Date: 07/26/2022 9:49:20 AM Sign Date: 07/26/2022 9:49:20 AM Ordering Provider: DORIE REYNOLDS CLINICAL: PALPABLE LUMP RIGHT AXILLA. Petroleum Inspector Supervisor: TC PERSAUD RT (R) (M) (CT) letter sent: Normal BI-RADS 1 and 2 Mammogram BI-RADS: 2 Benign [facility]09-09-2022 Note ORIGINAL EXAMINATION: LEFT UPPER QUADRANT ULTRASOUND 07/26/2022 9:26 am COMPARISON: None. HISTORY: ORDERING SYSTEM PROVIDED HISTORY: Reason for Exam: luq pain FINDINGS: SPLEEN: The spleen demonstrates normal echogenicity. No focal lesion is appreciated. The spleen is nonenlarged measuring 8.9 x 3.1 x 3.5 cm. LEFT KIDNEY: The left kidney is grossly unremarkable without evidence of hydronephrosis. The left kidney measures 9.6 x 5.6 x 4.4 cm. OTHER: No evidence of left upper quadrant ascites. IMPRESSION: Unremarkable left upper quadrant ultrasound. Interpreted by: Tomer Salamanca MD Preliminary Report By: Tomer Salamanca MD Electronically signed By Tomer Salamanca MD Dictated Date: 07/26/2022 9:51:23 AM Prelim Date: 07/26/2022 9:52:43 AM Sign Date: 07/26/2022 9:52:43 AM Ordering Provider: [facility]09-09-2022 Note ORIGINAL FROM: [place] [address] PROCEDURE FOR: ALKA GARRIDO [address] [place] [id number] Home: PID#: [id number] Exam#: [id number] : 1975 Age: 46 TO: DORIE REYNOLDS [address] [place] [address] Fax: NO FAX EXAMINATION: ULTRASOUND OF THE RIGHT AXILLA 07/10/2022 7:54 am TECHNIQUE: Color flow and real-time targeted ultrasound of the right axilla region of interest was performed. COMPARISON: Concurrent mammography of the same day. Prior mammograms dated 02/26/2021, 03/10/2019. HISTORY: ORDERING SYSTEM PROVIDED HISTORY: Reason for Exam: 1 cm lump in midline axillary FINDINGS: There are no significant sonographic findings to correlate with the palpable abnormality. IMPRESSION: There are no significant sonographic findings to correlate with the palpable abnormality. Clinical follow up is recommended. The patient may return to annual mammographic screening. There is no sonographic evidence of malignancy. BIRADS: MAMMOGRAM BI-RADS: 1: Negative RECALL: return to screening RECALL TYPE: mammo LETTER SENT: Normal BI-RADS 1 and 2 Interpreted by: Tomer Salamanca MD Preliminary Report By: Tomer Salamanca MD Electronically signed By Tomer Salamanca MD Dictated Date: 07/26/2022 9:49:29 AM Prelim Date: 07/26/2022 9:51:15 AM Sign Date: 07/26/2022 9:51:15 AM Ordering Provider: DORIE REYNOLDS CLINICAL: RIGHT AXILLA PALPABLE LUMP. Petroleum Inspector Supervisor: MAKAYLA JAIN RT(R) RDMS letter sent: Normal BI-RADS 1 and 2 Ultrasound BI-RADS: 1 [facility]09-09-2022 Note ORIGINAL FROM: [address] [address] PROCEDURE FOR: ALKA GARRIDO [address] [place] [phone] Home: PID#: [id number] Exam#: [id number] : 1975 Age: 46 TO: DORIE REYNOLDS [address] [place] [place] [id number] Fax: NO FAX EXAMINATION: DIAGNOSTIC BILATERAL MAMMOGRAM WITH TOMOSYNTHESIS, 07/10/2022 7:54 am TECHNIQUE: Tomosynthesis was performed as part of the diagnostic bilateral mammogram. 2D standard and 3D tomosynthesis combination imaging performed. Current study was also evaluated with a Computer Aided Detection (CAD) system. COMPARISON: Prior mammography dated 02/26/2021, 03/10/2019. HISTORY: ORDERING SYSTEM PROVIDED HISTORY: Reason for Exam: 1 cm lump in midline axillary FINDINGS: BREAST DENSITY: Scattered fibroglandular tissue. Stable focal asymmetries are seen of the breasts bilaterally. Benign calcification is seen of the left breast. Bilateral breast implants are intact. There are no significant masses or calcifications. There has been no significant interval change. No axillary lesion is appreciated on mammography. An ultrasound has been performed and will be reported separately. IMPRESSION: No mammographic evidence of malignancy. Continued screening with annual mammograms is recommended. BIRADS: MAMMOGRAM BI-RADS: 2: Benign finding RECALL: 1 year screening RECALL TYPE: mammo LETTER SENT: Normal BI-RADS 1 and 2 Interpreted by: Tomer Salamanca MD Preliminary Report By: Tomer Salamanca MD Electronically signed By Tomer Salamanca MD Dictated Date: 07/26/2022 9:47:30 AM Prelim Date: 07/26/2022 9:49:20 AM Sign Date: 07/26/2022 9:49:20 AM Ordering Provider: DORIE REYNOLDS CLINICAL: PALPABLE LUMP RIGHT AXILLA. Petroleum Inspector Supervisor: TC PERSAUD RT (R) (M) (CT) letter sent: Normal BI-RADS 1 and 2 Mammogram BI-RADS: 2 [facility]08-02-2022 Hospital Discharge instructions Patient Education 06/18/2022 17:43:42 Neck Spasm, No Trauma Neck Spasm A spasm of the neck muscles can happen after a sudden awkward neck movement. Sleeping with your neck in a crooked position can also cause spasm. Some people respond to emotional stress by tensing themuscles of their neck, shoulders, and upper back. If neck spasm lasts long enough, it can cause a headache. The treatment described below will usually help the pain to go away in 5 to 7 days. Pain that continues may need further evaluation or other types of treatment such as physical therapy. Home care Rest and relax the muscles. Use a comfortable pillow that supports the head and keeps the spine in a neutral position. The position of the head should not be tilted forward or backward. A rolled up towel may help for a custom fit. Some people find relief with heat. Heat can be applied with either a warm shower or bath or a moisttowel heated in the microwave and massage. Others prefer cold packs. You can make an ice pack by filling a plastic bag that seals at the top with ice cubes or crushed ice and then wrapping it with a thin towel. Try both and use the method that feels best for 15 to 20 minutes, several times a day. Whether using ice or heat, be careful that you don't injure your skin. Never put ice directly on the skin. Always wrap the ice in a towel or other type of cloth. This is very important, especially inpeople with poor skin sensation. Try to reduce your stress level. Emotional stress can lead to neck muscle tension and get in the way of or delay the healing process. You may use vlpb-jsb-yxxlpty pain medicine to control pain, unless another medicine was prescribed.If you have chronic liver or kidney disease or ever had a stomach ulcer or gastrointestinal bleeding, talk with your healthcare provider before using these medicines. Follow-up care Follow up with your healthcare provider if your symptoms don't show signs of improvement after one week. Physical therapy or further tests may be needed. If X-rays, CT scans, or MRI scans were taken, you will be told of any new findings that may affect your care. Call 911 Call 911 if you have: Sudden weakness or numbness in one or both arms or legs Neck swelling, trouble with or painful swallowing Trouble breathing Chest pain When to seek medical advice Call your healthcare provider right away if any of these occur: Pain becomes worse or spreads into one or both arms or legs Increasing headache with nausea or vomiting Fever of 100.4 F (38 C) or higher, or as directed by your healthcare provider Chills [phone] [employer]. [address] [place] [address], [place] [address]. All rights reserved. This information is not intended as a substitute for professional medical care. Always follow yourhealthcare professional's instructions. Follow Up Care 06/18/2022 16:17:38 With:JOANN MCNEIL [facility] Address: [address] [facility] [address] [facility] [place] [phone] When:2-4 days [facility] 08-02-2022 Note Discharge Instructions Thank you for allowing [facility] to assist you with your healthcare needs. The following is importantdischarge information regarding your hospital visit. Diagnosis from Today's Visit Muscle spasm of cervical muscle of neck Arm pain-swelling left What to Do Next Instructions from Your Care Team No qualifying data available. Post Acute Orders No qualifying data available. You Need to Schedule the Following Appointments Follow Up with JOANN MCNEIL When Within 2-4 days Where: [address] [facility] [place] [address] [phone] Allergies Animal Dander (Unknown) Grass (Unknown) Mites (Unknown) influenza virus vaccine, inactivated (Swelling, Shortness of breath) lisinopril (Tickle) Medications Please ask your primary doctor or pharmacist before taking any other medication not listed, including over the counter drugs, herbal medications, vitamins and or supplements as they may interact withyour home medications. What How Much When Why Instructions Last Dose New cyclobenzaprine (Flexeril use cyclobenzaprine) 10 Milligram by mouth Three (3) times a day as needed for Muscle spasm Muscle spasm of cervical muscle of neck Duration: 5 Days Printed Prescription Unchanged albuterol (Ventolin HFA MDI (90 mcg/ inh) inhalation aerosol) 2 puff(s) by inhalation Every 4 hours as needed for as needed for wheezing Duration: 30 Days Unchanged budesonide (budesonide 1 mg/ 2 mL inhalation suspension) See instructions Rinse sinuses daily. Unchanged busPIRone (busPIRone 5 mg oral tablet) 1 tab(s) by mouth Two (2) times a day Unchanged chlorthalidone (chlorthalidone 25 mg oral tablet) 1 tab(s) by mouth Every day Duration: 90 Days replacing the hctz Unchanged fluticasone nasal (Flonase 50 mcg/ inh nasal spray) 1 spray(s) each nostril Two (2) times a day Duration: 90 Days Unchanged lactobacillus acidophilus (Acidophilus Probiotic Blend oral capsule) 1 cap by mouth Once a day Unchanged losartan (losartan 100 mg oral tablet) 1 tab(s) by mouth Once a day Unchanged meloxicam (meloxicam 15 mg oral tablet) 1 tab(s) by mouth Once a day Unchanged montelukast (Singulair 10 mg oral tablet) 1 tab(s) by mouth Once a day (in the morning) Duration: 90 Days Please take this list to your next doctor s visit. Bring all medications you take, including over the counter medications, herbals and other supplements with you to your doctor s visit. Patients and families are reminded to discard old lists and to update any records with all medication providers or retail pharmacies. Education Materials Neck Spasm A spasm of the neck muscles can happen after a sudden awkward neck movement. Sleeping with your neck in a crooked position can also cause spasm. Some people respond to emotional stress by tensing themuscles of their neck, shoulders, and upper back. If neck spasm lasts long enough, it can cause a headache. The treatment described below will usually help the pain to go away in 5 to 7 days. Pain that continues may need further evaluation or other types of treatment such as physical therapy. Home care Rest and relax the muscles. Use a comfortable pillow that supports the head and keeps the spine in a neutral position. The position of the head should not be tilted forward or backward. A rolled up towel may help for a custom fit. Some people find relief with heat. Heat can be applied with either a warm shower or bath or a moisttowel heated in the microwave and massage. Others prefer cold packs. You can make an ice pack by filling a plastic bag that seals at the top with ice cubes or crushed ice and then wrapping it with a thin towel. Try both and use the method that feels best for 15 to 20 minutes, several times a day. Whether using ice or heat, be careful that you don't injure your skin. Never put ice directly on the skin. Always wrap the ice in a towel or other type of cloth. This is very important, especially inpeople with poor skin sensation. Try to reduce your stress level. Emotional stress can lead to neck muscle tension and get in the way of or delay the healing process. You may use hapz-crw-xpxwpgi pain medicine to control pain, unless another medicine was prescribed.If you have chronic liver or kidney disease or ever had a stomach ulcer or gastrointestinal bleeding, talk with your healthcare provider before using these medicines. Follow-up care Follow up with your healthcare provider if your symptoms don't show signs of improvement after one week. Physical therapy or further tests may be needed. If X-rays, CT scans, or MRI scans were taken, you will be told of any new findings that may affect your care. Call 911 Call 911 if you have: Sudden weakness or numbness in one or both arms or legs Neck swelling, trouble with or painful swallowing Trouble breathing Chest pain When to seek medical advice Call your healthcare provider right away if any of these occur: Pain becomes worse or spreads into one or both arms or legs Increasing headache with nausea or vomiting Fever of 100.4 F (38 C) or higher, or as directed by your healthcare provider Maria Eugenia [phone] [employer]. [address] [place] [address], [place] [address]. All rights reserved. This information is not intended as a substitute for professional medical care. Always follow yourhealthcare professional's instructions. Additional Information VACCINATE! IT SAVES LIVES! Members of the community who have not yet received the COVID-19 vaccine and would like to receive it can visit one of [facility] vaccine clinics. There are many vaccine clinic locations within the [facility]. For locations and available times, please visit [email or web address]. It is important to note that some COVID mobile vaccine clinics are held outdoors and may be canceled in rainy orstormy conditions. To learn more about pediatric vaccinations (ages 5-11), we invite you to visit the [facility] webpage. [email or web address] learn more about the COVID-19 vaccine, we invite you to visit the [facility] website for a list of frequently asked questions. [email or web address] [facility] Patient Portal Access Instructions: Stay connected with your healthcare team and access your personal medical information anytime with the [facility]. If you would like a full copy of your medical records please contact the [facility] Medical Records Department Friday through Friday between 8a.m. and 4:30p.m. Please follow the directions below to access the portal: 1.Access the email account you provided upon registration to the hospital.2.Look for an invitation email from [facility].3.Open the email and access the invitation link: Accept Invitation to [facility]4.Fill in the required mujica to create your account. Sign into [email or web address] with your username and password that you created in the above steps to stay up to date. You can then view a summary of results, a summary of your visits, and the ability to download your summaries to your computer or send the information securely to a physician. Remember that your healthcare information is confidential, so carefully consider who you will allow to register on the [facility] Patient Portal for access to your information. You can also access the [facility] Patient Portal on the [employer]. Simply click on Health Records under [employer] and then click on the [facility] logo. HOW TO SAFELY DISPOSE OF PRESCRIPTION MEDICATIONS Please use one of the following methods to safely dispose of your unused medications. 1.Use a drug disposal kit: the drug disposal pouch allows you to safely discard your old and unuseddrugs. Ask your nurse to give you one when you are discharged.2.Visit a local take-back location: Many local pharmacies and police departments have programs that collect old and unwanted prescriptiondrugs. Call your local pharmacy or go to http://Picateers.Road Hero/5S1Gy5s to find one close to you.3.Make use of household items: Use cat litter or old coffee grounds to dispose medications if other options arenot available. Mix your drugs with these household products, seal them in an airtight container andthrow it into the garbage. Call [facility]: [phone] to be sure your drugs can be disposed of in this way. Some medicines may require a different approach.4.Never flush your medications down the toilet. IF YOU HAVE BEEN PRESCRIBED AN OPIOIDS FOR PAIN If you have been prescribed an opioid (such as hydrocodone, oxycodone or morphine), it is critical to understand the possible side effects and risks of opioid pain medications. Even when taken as directed, opioids can have several side effects including: Tolerance, meaning you might need to take more of a medication for the same pain relief. Nausea, vomiting and/or constipation. Sleepiness, dizziness, dry mouth, confusion, depression or itching. Physical dependence, meaning you have withdrawal symptoms when a medication is stopped ? this can develop within a few days. KNOW YOUR RESPONSIBILITIES It is important to know exactly how much and how often to take the opioid pain medications you are prescribed. Never take opioids in higher amounts or more often than prescribed. Do not combine opioids with alcohol or other drugs that cause drowsiness, such as benzodiazepines, also known as benzos,including diazepam and alprazolam, muscle relaxants or sleep aids. Never sell or share prescriptionopioids. This is illegal. Store opioids in a secure place and out of reach of others (including children, family, friends and visitors). The last page(s) of this document has been signed and retained as a CHART COPY Signatures Patient Education Materials Neck Spasm, No Trauma Medication Leaflets My discharge plan and instructions have been reviewed and explained to me and I,ALKA GARRIDO understand my current condition and have read and understand these discharge instructions. I have received a written copy of the plan/instructions. If I have questions, I am aware that I should contact my doctor. Patient/Facility Sales And Admin Signature: Date/Time: Relationship to Patient: Witness Name/Signature: Date/Time: [facility]07-23-2022 Note ORIGINAL EXAMINATION: TWO XRAY VIEWS OF THE RIGHT HIP 06/08/2022 8:39 am COMPARISON: None. HISTORY: ORDERING SYSTEM PROVIDED HISTORY: Reason for Exam: pain. Denies injury. FINDINGS: No acute fracture or dislocation is evident. Incidental note is made of an os acetabulum, a normal variant. Osseous mineralization is within normal limits. No visible aggressive osseous lesions. The visible pelvic ring and sacrum are intact. Portions of the sacrum are obscured due to overlying bowel material. Preserved joint spaces of the right hip, pubic symphysis, and bilateral sacroiliac joints. However, there is suspicion for mild bilateral sacroiliac joint osteophytosis. Question tubal occlusion device of right hemipelvis. Correlate with patient's clinical history. IMPRESSION: 1. No acute osseous abnormalities. 2. Question minimal bilateral sacroiliac joint osteoarthrosis. Interpreted by: Mendoza Landers DO Preliminary Report By: Mendoza Landers DO Electronically signed By Mendoza Landers DO Dictated Date: 06/08/2022 9:12:34 AM Prelim Date: 06/08/2022 9:14:25 AM Sign Date: 06/08/2022 9:14:25 AM Ordering Provider: [facility]07-23-2022 Note ORIGINAL EXAMINATION: TWO XRAY VIEWS OF THE RIGHT HIP 06/08/2022 8:39 am COMPARISON: None. HISTORY: ORDERING SYSTEM PROVIDED HISTORY: Reason for Exam: pain. Denies injury. FINDINGS: No acute fracture or dislocation is evident. Incidental note is made of an os acetabulum, a normal variant. Osseous mineralization is within normal limits. No visible aggressive osseous lesions. The visible pelvic ring and sacrum are intact. Portions of the sacrum are obscured due to overlying bowel material. Preserved joint spaces of the right hip, pubic symphysis, and bilateral sacroiliac joints. However, there is suspicion for mild bilateral sacroiliac joint osteophytosis. Question tubal occlusion device of right hemipelvis. Correlate with patient's clinical history. IMPRESSION: 1. No acute osseous abnormalities. 2. Question minimal bilateral sacroiliac joint osteoarthrosis. Interpreted by: Mendoza Landers DO Preliminary Report By: Mendoza Landers DO Electronically signed By Mendoza Landers DO Dictated Date: 06/08/2022 9:12:34 AM Prelim Date: 06/08/2022 9:14:25 AM Sign Date: 06/08/2022 9:14:25 AM Ordering Provider: [facility]09-09-2020 Evaluation + Plan note Future Appointments Appointment Date:07/26/2022 08:30:00 AM Scheduled Provider: Location:[facility] Appointment Type:US Abdomen Limited Appointment Date:07/26/2022 09:00:00 AM Scheduled Provider: Location:[facility] Appointment Type:US Soft Tissue Mass Appointment Date:07/26/2022 09:45:00 AM Scheduled Provider: Location:[facility] Appointment Type:MA Mammogram Diagnostic Bilateral w/ Ruperto Appointment Date:07/26/2022 10:30:00 AM Scheduled Provider: Location:[facility] Appointment Type:US Breast Right Complete Appointment Date:07/30/2022 11:00:00 AM Scheduled Provider:JOANN MCNEIL Location:[facility] Appointment Type:PC OV Future Scheduled Tests Laboratory* Pathology Frothing Machine Operator Request 07/09/22 Radiology* MA Mammo Diagnostic Bilateral w/Rogelio 07/26/22 * US Abdomen Limited 07/26/22 * US Breast Right Complete 07/26/22 * XR Hip Minimum 2 Views Right 04/30/22 * US Soft Tissue Mass 07/26/22 [facility] Evaluation + Plan note Future Appointments Appointment Date:09/06/2021 08:30:00 AM Scheduled Provider:GREGORIO JIMENEZ Location:[facility] Appointment Type:WH OV Annual Exam [facility] Evaluation + Plan note Future Appointments Appointment Date:07/30/2022 08:00:00 AM Scheduled Provider:JOANN MCNEIL Location:[facility] Appointment Type:PC OV Diagnostic Tests Pending * Lipid Profile 06/08/22 * Complete Blood Count 06/08/22 * Complete Metabolic Panel 06/08/22 Future Scheduled Tests Radiology* XR Hip Minimum 2 Views Right 04/30/22 [facility] Evaluation + Plan note Future Appointments Appointment Date:07/30/2022 08:00:00 AM Scheduled Provider:JOANN MCNEIL Location:[facility] Appointment Type:PC OV Future Scheduled Tests Radiology* XR Hip Minimum 2 Views Right 04/30/22 [facility] Evaluation + Plan note Future Appointments Appointment Date:08/01/2022 01:00:00 PM Scheduled Provider:MANUEL AVALOS MD Location: [facility] Appointment Type: Office Procedure Appointment Date:08/05/2022 07:00:00 AM Scheduled Provider:JOANN MCNEIL Location:[facility] Appointment Type:PC OV Future Scheduled Tests Laboratory* Pathology Frothing Machine Operator Request 07/09/22 Radiology* XR Hip Minimum 2 Views Right 04/30/22 [facility] Evaluation + Plan note Future Appointments Appointment Date:10/04/2022 09:00:00 AM Scheduled Provider:OLESYA TORRES MD Location:[facility] Appointment Type:GS TUB OPERATOR Appointment Date:11/20/2022 07:00:00 AM Scheduled Provider:JOANN MCNEIL Location:[facility] Appointment Type:PC Wellness Annual Future Scheduled Tests Laboratory* A1C Hemoglobin 11/04/22 * Complete Metabolic Panel 11/04/22 Radiology* XR Hip Minimum 2 Views Right 04/30/22 [facility] Evaluation + Plan note Future Appointments Appointment Date:12/16/2022 08:00:00 AM Scheduled Provider:JOANN MCNEIL Location:[facility] Appointment Type:PC Wellness Annual Future Scheduled Tests Radiology* XR Hip Minimum 2 Views Right 04/30/22 [facility] Evaluation + Plan note Future Appointments Appointment Date:02/04/2024 08:00:00 AM Scheduled Provider:JOANN MCNEIL Location:[facility] Appointment Type:PC OV Future Scheduled Tests Laboratory* Complete Metabolic Panel 06/23/23 Radiology* MA Mammo Screening Bilateral w/ Rogelio 03/18/23 [facility] Evaluation + Plan note Future Appointments Appointment Date:05/10/2024 10:45:00 AM Scheduled Provider:LIYAH BARNES MD Location: [facility] Appointment Type: OV Annual Exam Appointment Date:05/12/2024 11:00:00 AM Scheduled Provider: Location:[facility] Appointment Type:PF PFT w/Bronchodiltor Appointment Date:08/16/2024 07:30:00 AM Scheduled Provider:JOANN MCNEIL Location:[facility] Appointment Type:PC Wellness Annual Appointment Date:11/01/2024 07:00:00 AM Scheduled Provider:JOANN MCNEIL Location:[facility] Appointment Type:PC OV Future Scheduled Tests Laboratory* A1C Hemoglobin 11/02/24 * Lipid Profile 11/02/24 * Complete Metabolic Panel 06/23/23 * Complete Metabolic Panel 11/02/24 [facility] Evaluation + Plan note Future Appointments Appointment Date:08/16/2024 07:30:00 AM Scheduled Provider:JOANN MCNEIL Location:[facility] Appointment Type:PC Wellness Annual Appointment Date:11/01/2024 07:00:00 AM Scheduled Provider:JOANN MCNEIL Location:[facility] Appointment Type:PC OV Future Scheduled Tests Laboratory* Pathology Frothing Machine Operator Request 05/10/24 * A1C Hemoglobin 11/02/24 * Lipid Profile 11/02/24 * Complete Metabolic Panel 06/23/23 * Complete Metabolic Panel 11/02/24 [facility] Hospital course Narrative No data available for this section [facility] Hospital Discharge instructions No data available for this section [facility] Progress note No data available for this section [facility] Summary Purpose Family History No Family History Records FoundNo Family History Records Found No data available for this section No data available for this section No data available for this section No Family History Records Found No data available for this section No Family History Records FoundNo Family History Records Found Advance Directives No Advanced Directives Records FoundNo Advanced Directives Records FoundNo Advanced Directives Records FoundNo Advanced Directives Records FoundNo Advanced Directives Records Found Additional Source Comments INFORMATION SOURCE (unrecogn ized section and content) DATE CREATED AUTHOR 05/12/2018 [facility] DATE CREATED AUTHOR AUTHOR'S ORGANIZ ATION 05/12/2018 [facility] DATE CREATED AUTHOR AUTHOR'S ORGANIZ ATION 06/04/2024 [facility] ([place] DATE CREATED AUTHOR AUTHOR'S ORGANIZ ATION 01/07/2025 [facility] DATE CREATED AUTHOR AUTHOR'S ORGANIZ ATION 09/22/2025 [facility] Care Team (unrecognized sect ion and content) Care Team Personnel Name: JOANN MCNEIL Position: P4 Advanced Practice Nurse Med Service: Active Provider Member Role: Primary Care Physician Address: Address: [address] [place] [address]- Care Team Related Persons Name: CHRISTOPHER NEVAREZ Address: [address] [place] [address] Name: ROGER GARRIDO I Address: Home [address] [phone] [place] Name: RAJANI GARRIDO Address: Home [address], [place] [id number] [place] Name: LEONORA GARRIDO Address: Home [address] [id number] Care Team Personnel Name: JOANN MCNEIL Position: P4 Advanced Practice Nurse Med Service: Active Provider Member Role: Primary Care Physician Address: Address: [address] [facility] [place] [address]- Care Team Related Persons Name: CHRISTOPHER NEVAREZ Address: Home [address] [id number] Name: ROGER GARRIDO I Address: Home [address] [place] [id number] [place] Name: RAJANI GARRIDO Address: Home [address] [place], [place] [id number] [place] Name: LEONORA GARRIDO Address: Home [address] [place] [id number] [place] Care Team Personnel Name: JOANN MCNEIL Position: P4 Advanced Practice Nurse Member Role: Primary Care Physician Address: Address: [address] [facility] [address] Care Team Related Persons Name: CHRISTOPHER NEVAREZ Address: Home [address] [address] Name: ROGER GARRIDO I Address: Home [address] [place] [id number] [place] Name: RAJANI GARRIDO Address: Home [address], [place] [id number] [place] Name: LEONORA GARRIDO Address: Home [address] [place] [id number] [place] Care Team Personnel Name: JOANN MCNEIL Position: P4 Advanced Practice Nurse Med Service: Active Provider Member Role: Primary Care Physician Address: Address: [address] [place] [address]- Care Team Related Persons Name: CHRISTOPHER NEVARZE Address: Home [address] [place] [address] Name: ROGER GARRIDO I Address: Home [address] [place] [place] [id number] [place] Name: RAJANI GARRIDO Address: Home [address], [place] [id number] [place] Name: LEONORA GARRIDO Address: Home [address] [place], [place] [phone] [place] Care Team Personnel Name: JOANN MCNEIL Position: P4 Advanced Practice Nurse Med Service: Active Provider Member Role: Primary Care Physician Address: Address: [address] [place] [address]- Care Team Related Persons Name: CHRISTOPHER NEVAREZ Address: Home [address] [place] [address] Name: ROGER GARRIDO I Address: Home [address] [place] [phone] [place] Name: RAJANI GARRIDO Address: Home [address], [place] [phone] [place] Name: LEONORA GARRIDO Address: Home [address] [place], [place] [phone] [place] Care Team Personnel Name: JOANN MCNEIL Position: P4 Advanced Practice Nurse Med Service: Active Provider Member Role: Primary Care Physician Address: Address: [address] [place] [address]- Care Team Related Persons Name: CHRISTOPHER NEVAREZ Address: Home [address] [place] [address] Name: ROGER GARRIDO I Address: Home [address] [place] [place], [place] [phone] [place] Name: RAJANI GARRIDO Address: Home [address], [place] [phone] [place] Name: LEONORA GARRIDO Address: Home [address] [place] [phone] [place] Care Team Personnel Name: JOANN MCNEIL Position: P4 Advanced Practice Nurse Member Role: Primary Care Physician Address: Address: [address] [place] [address]- Name: MD KRISTEN, RAMBO EUGENE Position: ED Physician Member Role: ED Physician Address: Address: [address] [place], [place] [id number] Care Team Related Persons Name: CHRISTOPHER NEVAREZ Address: Home [address] [place] [address] Name: ROGER GARRIDO I Address: Home [address] [place], [place] [phone] [place] Name: RAJANI GARRIDO Address: Home [address], [place] [id number] [place] Name: LEONORA GARRIDO Address: Home [address] [place] [phone] [place] Care Team Personnel Name: JOANN MCNEIL Position: P4 Advanced Practice Nurse Member Role: Primary Care Physician Address: Address: [address] [place], [place] [address] Care Team Related Persons Name: CHRISTOPHER NEVAREZ Address: Home [address], [place] [phone] Name: ROGER GARRIDO I Address: Home [address] [place] [phone] [place] Name: RAJANI GARRIDO Address: Home [address], [place] [phone] [place] Name: LEONORA GARRIDO Address: Home [address] [place], [place] [phone] [place] Care Team Personnel Name: JOANN MCNEILPRINTED CIRCUIT BOARD PANELS PLATER Position: P4 Advanced Practice Nurse Member Role: Primary Care Physician Address: Address: [address] [place] [address]- [place] Care Team Related Persons Name: NEVAREZRYAN HARDWICKKIE Address: Home [address], [place] [phone] Name: ROGER GARRIDO I Address: Home [address] [place] [id number] [place] Name: RAJANI GARRIDO Address: Home [address], [place] [phone] [place] Name: LEONORA GARRIDO Address: Home [address] [place], [place] [phone] Patient Care team informatio n (unrecognized section and content) Care Team Personnel Name: JOANN MCNEIL APRN-PRINTED CIRCUIT BOARD PANELS PLATER Position: P4 Advanced Biology Teacher Member Role: Primary Care Physician Address: Address: [address] [place] [address]- Care Team Related Persons Name: NEVAREZRYAN HARDWICKKIE Address: Home [address], [place] [id number] Name: ROGER GARRIDO Name: RAJANI GARRIDO Address: Home [address], [place] [phone] [place] Name: LEONORA GARRIDO Address: Home [address] [place], [place] [phone] [place] Care Team Personnel Name: JOANN MCNEIL APRN-PRINTED [employer] BOARD PANELS PLATER Position: P4 Advanced Biology Teacher Member Role: Primary Care Physician Address: Address: [address] [place] [address]- Care Team Related Persons Name: CHRISTOPHER NEVAREZ Address: Home [address], [place] [id number] Name: ROGER GARRIDO Name: RAJANI GARRIDO Address: Home [address], [place] [phone] [place] Care Team Personnel Name: JOANN MCNEIL APRN-PRINTED [employer] BOARD PANELS PLATER Position: P4 Advanced Biology Teacher Member Role: Primary Care Physician Address: Address: [address] [place], [place] [address] Care Team Related Persons Name: CHRISTOPHER NEVAREZ Address: Home [address], [place] [phone] Name: ROGER GARRIDO Name: RAJANI GARRIDO Address: Home [address], [place] [phone] [place] Care Team Personnel Name: JOANN MCNEIL ARMHOLE SEWER-PRINTED CIRCUIT BOARD PANELS PLATER Position: P4 Advanced Biology Teacher Member Role: Primary Care Physician Address: [address] [facility] [place] [address]- Telecom: Care Team Related Persons Name: CHRISTOPHER NEVAREZ Name: ROGER GARRIDO Name: RAJANI GARRIDO FOR RECORDS PERTAINING TO PATIENTS WHO ARE OR HAVE BEEN ENROLLED IN A CHEMICAL DEPENDENCY/SUBSTANCEABUSE PROGRAM, SOME INFORMATION MAY BE OMITTED. This clinical summary was aggregated from multiple sources. Caution should be exercised in using it in the provision of clinical care. This summary normalizes information from multiple sources, and as a consequence, information in this document may materially change the coding, format and clinical context of patient data. In addition, data may be omitted in some cases. CLINICAL DECISIONS SHOULD BE BASED ON THE PRIMARY CLINICAL RECORDS. [employer] provides no warranty or guarantee of the accuracy or completeness of information in this document.
== END 2025-10-06 12:46 | disposition home or self-care (01) ==
LOC: ED 12:43
PROVIDERS: Emergency Provider Surgery; PCP Nurse Practitioner Family; Visit Provider Surgery
DX: H66.91 Otitis media, unspecified, right ear (principal); I10 Essential (primary) hypertension
CPT/HCPCS: 99282